=== PATIENT | female | born 1945 | race Caucasian/White ===

== ENCOUNTER 2017-02-10 18:22 | Inpatient (IN) | payer MEDICARE, MEDICAID ==
[~2017-02-10] VITALS: Ht 154.9 cm; Wt 78.9 kg
--- NOTE | 2017-02-10 18:48 | NUR ---
pending MD evaluation at this time-comfort & safety measures maintained.
--- NOTE | 2017-02-10 19:07 | NUR ---
Dr. Duff at bedside for eval.
[2017-02-10] MEDS ORDERED: IV NORMAL SALINE 1000 ML BAG IV ONE ×2 (19:15→22:30)
[2017-02-10 19:27] LABS: *BLOOD, URINE 1+ (NEGATIVE); *CLARITY,URINE SLIGHTLY CLOUDY (CLEAR); *COLOR,URINE YELLOW (YELLOW); *KETONES,URINE NEGATIVE (NEGATIVE); *PROTEIN,URINE 2+ (NEGATIVE); *UROBILINOGEN,URINE 0.2 E.U./dl (NORMAL); LEUKOCYTE ESTERASE ,URINE 3+ (NEGATIVE); NITRITE, URINE NEGATIVE (NEGATIVE); UGLUCOSE NEGATIVE (NEGATIVE)
[2017-02-10] MEDS ORDERED: CEFTRIAXONE 1 G VIAL ONE (19:34)
[2017-02-10 19:36] LABS: *BILIRUBIN,URIN NEGATIVE (NEGATIVE)
[2017-02-10 19:38] LABS: BACTERIA,URINE FEW /HPF (NONE SEEN); SQUAMOUS EPITHELIAL CELL,UR MODERATE /HPF (NONE SEEN); WBC,URINE 80-100 /HPF (0-3)
[2017-02-10 19:42] LABS: BASOPHILS # (AUTO) 0.2 K/uL (0.0-8.0); BASOPHILS % (AUTO) 1.1 % (0.0-2.0); EOSINOPHILS # (AUTO) 0.1 K/uL (0.0-0.7); EOSINOPHILS % (AUTO) 0.5 % (0.0-7.0); HEMATOCRIT 40.9 % (37-47); HEMOGLOBIN 13.2 G/DL (12.0-16.0); LYMPHOCYTES # (AUTO) 1.5 K/UL (0.8-4.8); LYMPHOCYTES % (AUTO) 9.1 % (20.5-51.5); MEAN CORPUSCULAR HEMOGLOBIN 28.5 UUG (27.0-31.0); MEAN CORPUSCULAR HGB CONC 32 g/dL (32.0-37.0); MEAN CORPUSCULAR VOLUME 88.1 FL (81.0-99.0); MONOCYTES # (AUTO) 1.2 K/UL (0.1-1.30); MONOCYTES % (AUTO) 6.9 % (0.0-11.0); NEUTROPHILS # (AUTO) 13.7 K/UL (1.8-8.9); NEUTROPHILS % (AUTO) 82.4 % (38.5-71.5); PLATELET COUNT (AUTO) 393 K/UL (150-450); RED BLOOD CELL COUNT(AUTO) 4.64 MIL/UL (4.2-5.4); WHITE BLOOD COUNT (AUTO) 16.7 K/UL (4.0-11.2)
[2017-02-10] MEDS: CEFTRIAXONE 1 G in IV DEXTROSE 5% 50 ML IV ONE ×2 (19:50→20:22)
--- NOTE | 2017-02-10 19:50 | NUR ---
IVPB hung at this time.
--- NOTE | 2017-02-10 19:51 | NUR ---
Ceftriaxone 1 gram IVPB given.
[2017-02-10 19:56] LABS: BILIRUBIN,DIRECT 0.1 mg/dL (0.0-0.2); BILIRUBIN,TOTAL 0.4 mg/dL (0.2-1.0); TOTAL PROTEIN, SERUM 7.5 g/dL (6.4-8.2)
[2017-02-10] MEDS ORDERED: POTASSIUM BICARBONATE/CIT AC 25 MEQ TABLET.EFF PO ONE (20:00)
[2017-02-10 20:05] LABS: BAND % (MANUAL) 7 % (0-10); EOSINOPHILS % (MANUAL) 2 % (0-8); LYMPHOCYTES % (MANUAL) 10 % (20-40); MONOCYTES % (MANUAL) 9 % (2-10); NEUTROPHILS % (MANUAL) 72 % (42-75)
[2017-02-10] MEDS ORDERED: POTASSIUM BICARBONATE/CIT AC 25 MEQ TABLET.EFF ONE (20:18)
--- NOTE | 2017-02-10 20:20 | NUR ---
IVPB completed at this time.
[2017-02-10] MEDS ORDERED: LEVOFLOXACIN 750 MG/D5W 150 ML PIGGYBACK IV ONE (21:45)
--- NOTE | 2017-02-10 21:49 | NUR ---
[facility] called, waiting economics consultant back.
[2017-02-10] MEDS ORDERED: LEVOFLOXACIN 750MG/D5W 150 ML IV ONE (22:10)
--- NOTE | 2017-02-10 22:23 | NUR ---
BP 91/51 HR 74 RR18 O2 99% on 2L via NC T 98.3. lactic acid 1.0. Dr. Duff notified. Patient ordered for bolus NS. Not code sepsis at this time. Repeat lactic acid ordered.
[2017-02-10] MEDS ORDERED: ROPI0.5T PO (22:27)
[2017-02-10] MEDS ORDERED: HYDR-3980 PO (22:27)
[2017-02-10] MEDS ORDERED: BLOO-140 IN (22:27)
[2017-02-10] MEDS ORDERED: METF500T4 PO (22:27)
[2017-02-10] MEDS ORDERED: GATI2.5D LEFTEYE (22:27)
[2017-02-10] MEDS ORDERED: GUAI-960 PO (22:27)
[2017-02-10] MEDS ORDERED: RANI150T8 PO (22:27)
[2017-02-10] MEDS ORDERED: FERR240T9 PO (22:27)
[2017-02-10] MEDS ORDERED: TELM1TAB18 PO (22:27)
[2017-02-10] MEDS ORDERED: DICL75TA5 PO (22:27)
[2017-02-10] MEDS ORDERED: PRED-170 PO (22:27)
[2017-02-10] MEDS ORDERED: MYCO500T PO (22:27)
[2017-02-10] MEDS ORDERED: TORS20TA3 PO (22:27)
[2017-02-10] MEDS ORDERED: INSU300I SQ (22:27)
[2017-02-10] MEDS ORDERED: METO50TA3 PO (22:27)
[2017-02-10] MEDS ORDERED: BUDE10.2 IH (22:27)
[2017-02-10] MEDS ORDERED: FLUT16SP NS (22:27)
[2017-02-10] MEDS ORDERED: POTA8TAB8 PO (22:27)
[2017-02-10] MEDS ORDERED: BRIM5DRO2 LEFTEYE (22:27)
[2017-02-10] MEDS ORDERED: ESOM40CA PO (22:27)
[2017-02-10] MEDS ORDERED: ZOLP10TA6 PO (22:27)
[2017-02-10] MEDS ORDERED: CLON0.5T4 PO (22:27)
[2017-02-10] MEDS ORDERED: CHOL200026 PO (22:27)
[2017-02-10] MEDS ORDERED: LIPA1CAP15 PO (22:27)
[2017-02-10] MEDS ORDERED: BRIN8DRO LEFTEYE (22:27)
[2017-02-10] MEDS ORDERED: HYDR25TA4 PO (22:27)
[2017-02-10] MEDS ORDERED: LEVO25TA2 PO (22:27)
[2017-02-10] MEDS ORDERED: MAGNESIUM SULFATE/D5W 100 ML IV SCH (22:30)
--- NOTE | 2017-02-10 23:05 | NUR ---
repeat lactic acid 0.8, Dr. Duff notified.
[2017-02-10] MEDS ORDERED: CEFTRIAXONE 1 G in IV DEXTROSE 5% 50 ML IV SCH (23:30)
[2017-02-10] MEDS ORDERED: ALBUTEROL SULFATE 2.5 MG/3 ML NEBU NEB PRN (23:30)
[2017-02-10] MEDS ORDERED: ALBUTEROL SULFATE 2.5 MG/3 ML NEBU ONE (23:43)
[2017-02-10] MEDS ORDERED: IPRATROPIUM BROMIDE 0.5 MG/2.5 ML NEBU ONE (23:44)
[2017-02-10] MEDS ORDERED: MAGNESIUM SULFATE/D5W 100 ML ONE (23:48)
--- NOTE | 2017-02-10 23:49 | NUR ---
Report called to CHACORTA Garcia. Pt. admitted to tele , under care of Dr. Hearn Belongs List completed
--- NOTE | 2017-02-11 00:25 | NUR ---
PT WAS BOUGHT IN TO FLOOR VIA GURNEY. ADMITTED TO TELE UNDER DR. KIM. DX: SYSTEMIC INFECTION DUE TO UTI. INITIATED ADMISSION ASSESSMENTS. WILL CALL FOR ORDERS.
--- NOTE | 2017-02-11 00:31 | NUR ---
Transported patient via gurney, O2 and monitor to room 207.
[2017-02-11 00:41] VITALS: BP 118/47
--- NOTE | 2017-02-11 00:51 | NUR ---
CEFTRIAXONE NOT GIVEN SCHEDULED. TOO EARLY TO GIVE, WAS GIVEN IN ER AT 1950.
[2017-02-11] MEDS: POTASSIUM CHLORIDE 20 MEQ in IV NS 1000 ML 1,000 ML IV PRN ×2 (03:03→16:24)
[2017-02-11 04:00] VITALS: BP 110/56
--- NOTE | 2017-02-11 06:29 | NUR ---
PT IS A/O, AMBULATED TO BATHROOM. IN NO ACUTE SIGNS OF DISTRESS. SLEPT INTERMITTENTLY DURING SHIFT. IVF INFUSING. SAFETY MAINTAINED. CALL LIGHT WITHIN REACH.
[2017-02-11 06:51] LABS: BASOPHILS # (AUTO) 0.1 K/uL (0.0-8.0); BASOPHILS % (AUTO) 0.4 % (0.0-2.0); EOSINOPHILS # (AUTO) 0.1 K/uL (0.0-0.7); EOSINOPHILS % (AUTO) 0.4 % (0.0-7.0); HEMATOCRIT 38.3 % (37-47); HEMOGLOBIN 12.4 G/DL (12.0-16.0); LYMPHOCYTES # (AUTO) 1.7 K/UL (0.8-4.8); LYMPHOCYTES % (AUTO) 10.2 % (20.5-51.5); MEAN CORPUSCULAR HEMOGLOBIN 28.8 UUG (27.0-31.0); MEAN CORPUSCULAR HGB CONC 33 g/dL (32.0-37.0); MEAN CORPUSCULAR VOLUME 88.8 FL (81.0-99.0); MONOCYTES # (AUTO) 1.7 K/UL (0.1-1.30); MONOCYTES % (AUTO) 10.3 % (0.0-11.0); NEUTROPHILS # (AUTO) 13.1 K/UL (1.8-8.9); NEUTROPHILS % (AUTO) 78.7 % (38.5-71.5); PLATELET COUNT (AUTO) 370 K/UL (150-450); RED BLOOD CELL COUNT(AUTO) 4.32 MIL/UL (4.2-5.4); WHITE BLOOD COUNT (AUTO) 16.7 K/UL (4.0-11.2)
[2017-02-11] MEDS ORDERED: ZOLPIDEM 5 MG TABLET PO PRN (07:30)
[2017-02-11 07:32] LABS: THYROID STIMULATING HORMONE 0.412 mIU/mL (0.358-3.740)
[2017-02-11] MEDS: LEVOTHYROXINE SODIUM 25 MCG TABLET PO SCH (07:36)
[2017-02-11] MEDS ORDERED: ALBUTEROL SULFATE 2.5 MG/ 0.5 ML NEBU NEB PRN (07:45)
--- NOTE | 2017-02-11 08:00 | NUR ---
CONTINUE TELE MONITORING SR ON MONITOR. CONTINUE O2 3L SATURATING 93 %. NO SOB
[2017-02-11 08:59] LABS: BILIRUBIN,TOTAL 0.3 mg/dL (0.2-1.0); CREATININE 1.1 mg/dL (0.6-1.3); MAGNESIUM 1.8 mg/dL (1.8-2.4); PHOSPHOROUS 2.7 mg/dL (2.5-4.9); POTASSIUM 3.6 mmol/L (3.5-5.1); TOTAL PROTEIN, SERUM 6.8 g/dL (6.4-8.2)
[2017-02-11] MEDS ORDERED: DEXTROSE 50% 50 ML DISP.SYRIN IV PRN (09:00)
[2017-02-11] MEDS ORDERED: Medication Not On Formulary EA (Lipase/Protease/Amylase (Creon Dr 36,000 Units Capsule) PO SCH (09:00)
[2017-02-11] MEDS ORDERED: FERROUS GLUCONATE 240 MG PO SCH (09:00)
[2017-02-11] MEDS ORDERED: Medication Not On Formulary EA (Cholecalciferol (Vitamin D3) (Vitamin D3 TAB) 2,000 UNIT PO SCH (09:00)
[2017-02-11] MEDS ORDERED: Medication Not On Formulary EA (Potassium Chloride 8 MEQ) PO SCH (09:00)
[2017-02-11] MEDS ORDERED: Medication Not On Formulary EA (Mycophenolate Mofetil (Cellcept) 500 MG) PO SCH (09:00)
[2017-02-11] MEDS: POTASSIUM CHLORIDE 8 MEQ CAPSULE.SA PO SCH (09:01)
[2017-02-11] MEDS: METFORMIN HCL 500 MG TABLET PO SCH (09:01)
[2017-02-11] MEDS: CHOLECALCIFEROL 1,000 UNIT TABLET PO SCH (09:01)
[2017-02-11] MEDS: predniSONE 5 MG TABLET PO SCH (09:02)
[2017-02-11] MEDS: MYCOPHENOLATE MOFETIL 250 MG CAPSULE PO SCH ×2 (09:02→21:42)
[2017-02-11] MEDS: LIPASE/PROTEASE/AMYLASE 4200 UNITS CAPSULE.DR PO SCH ×3 (09:03→17:02)
[2017-02-11] MEDS: DICLOFENAC 75 MG TABLET.DR PO SCH (09:06)
[2017-02-11 09:10] LABS: BAND % (MANUAL) 9 % (0-10); LYMPHOCYTES % (MANUAL) 15 % (20-40); MONOCYTES % (MANUAL) 12 % (2-10); NEUTROPHILS % (MANUAL) 64 % (42-75)
[2017-02-11] MEDS: HYDROCODONE/APAP 10-325 MG TABLET PO PRN ×2 (09:14→23:50)
--- NOTE | 2017-02-11 11:00 | NUR ---
ACCUCHECK STARTED WITH SS COVERAGE,. UP AND ABOUT WITH FAMILY AT BEDSIDE SUPPORTIVE WITH CARE
[2017-02-11] MEDS: BLOOD SUGAR DIAGNOSTIC 1 EACH STRIP VI SCH ×3 (11:39→21:00)
[2017-02-11] MEDS: INSULIN REGULAR, HUMAN 300 UNIT/3 ML VIAL SQ PRN ×2 (11:42→16:37)
[2017-02-11 11:59] VITALS: BP 106/54
--- NOTE | 2017-02-11 14:00 | NUR ---
SEEN BY DR ORO SPOKE WITH PATIENT AND ABOUT PLAN OF CARE SEE NOTES
[2017-02-11] MEDS: CLONAZEPAM 0.5 MG TABLET PO SCH (15:02)
[2017-02-11 16:54] VITALS: BP 109/60
--- NOTE | 2017-02-11 17:10 | NUR ---
CONTINUE MONITORING FOR UTI, NO REACTION FROM ROCEPHIN, LOW GRADE FEVER SR ON MONITOR
[2017-02-11 21:09] VITALS: BP 120/59
[2017-02-11] MEDS: CEFTRIAXONE 1 G in IV DEXTROSE 5% 50 ML IV SCH (21:42)
[2017-02-11] MEDS: ropiniROLE 0.5 MG TABLET PO SCH (21:42)
[2017-02-12 00:24] VITALS: BP 135/79
[2017-02-12 04:20] VITALS: BP 130/52
[2017-02-12] MEDS: POTASSIUM CHLORIDE 20 MEQ in IV NS 1000 ML 1,000 ML IV PRN ×2 (05:19→22:16)
[2017-02-12] MEDS: LEVOTHYROXINE SODIUM 25 MCG TABLET PO SCH (06:18)
[2017-02-12] MEDS: BLOOD SUGAR DIAGNOSTIC 1 EACH STRIP VI SCH ×4 (06:49→20:34)
[2017-02-12] MEDS: HYDROCODONE/APAP 10-325 MG TABLET PO PRN ×2 (07:55→20:45)
--- NOTE | 2017-02-12 08:00 | NUR ---
RESTING NO SIGNS OF DISTRESS, CONTINUE WITH O2 3L NC SATURATING 92%, CONTINUE WITH ROCEPHIN ORDERS NO REACTION OBSERVED
[2017-02-12] MEDS: CHOLECALCIFEROL 1,000 UNIT TABLET PO SCH (08:03)
[2017-02-12] MEDS: MYCOPHENOLATE MOFETIL 250 MG CAPSULE PO SCH ×2 (08:03→20:35)
[2017-02-12] MEDS: predniSONE 5 MG TABLET PO SCH (08:03)
[2017-02-12] MEDS: FERROUS SULFATE 325 MG TABEC PO SCH (08:03)
[2017-02-12] MEDS: METFORMIN HCL 500 MG TABLET PO SCH (08:03)
[2017-02-12] MEDS: CLONAZEPAM 0.5 MG TABLET PO SCH (08:04)
[2017-02-12] MEDS: POTASSIUM CHLORIDE 8 MEQ CAPSULE.SA PO SCH (08:04)
[2017-02-12] MEDS: DICLOFENAC 75 MG TABLET.DR PO SCH (08:04)
[2017-02-12] MEDS: LIPASE/PROTEASE/AMYLASE 4200 UNITS CAPSULE.DR PO SCH ×3 (08:05→16:51)
[2017-02-12 09:15] LABS: BASOPHILS % (AUTO) 0.3 % (0.0-2.0); EOSINOPHILS # (AUTO) 0.1 K/uL (0.0-0.7); EOSINOPHILS % (AUTO) 0.7 % (0.0-7.0); HEMATOCRIT 35.8 % (37-47); HEMOGLOBIN 11.5 G/DL (12.0-16.0); LYMPHOCYTES # (AUTO) 1.6 K/UL (0.8-4.8); LYMPHOCYTES % (AUTO) 11.7 % (20.5-51.5); MEAN CORPUSCULAR HEMOGLOBIN 28.6 UUG (27.0-31.0); MEAN CORPUSCULAR HGB CONC 32 g/dL (32.0-37.0); MONOCYTES # (AUTO) 1.5 K/UL (0.1-1.30); MONOCYTES % (AUTO) 10.6 % (0.0-11.0); NEUTROPHILS # (AUTO) 10.8 K/UL (1.8-8.9); NEUTROPHILS % (AUTO) 76.7 % (38.5-71.5); PLATELET COUNT (AUTO) 358 K/UL (150-450); RED BLOOD CELL COUNT(AUTO) 4.02 MIL/UL (4.2-5.4)
[2017-02-12 09:32] LABS: CREATININE 0.8 mg/dL (0.6-1.3); MAGNESIUM 1.8 mg/dL (1.8-2.4); PHOSPHOROUS 1.9 mg/dL (2.5-4.9); POTASSIUM 3.9 mmol/L (3.5-5.1)
[2017-02-12 11:45] VITALS: BP 105/58
[2017-02-12] MEDS: INSULIN REGULAR, HUMAN 300 UNIT/3 ML VIAL SQ PRN ×2 (11:58→16:50)
--- NOTE | 2017-02-12 13:00 | NUR ---
NO ACUTE CHANGE, AFEBRLIE
[2017-02-12] MEDS: SOD FERRIC GLUC COMPLX/SUCROSE 125 MG in IV NORMAL SALINE 100 ML IV SCH (14:51)
[2017-02-12] MEDS ORDERED: BISACODYL 10 MG SUPP.RECT RC PRN (15:45)
[2017-02-12] MEDS ORDERED: MAGNESIUM HYDROXIDE 30 ML LIQUID UDC PO PRN (15:45)
[2017-02-12 15:53] VITALS: BP 131/76
[2017-02-12] MEDS ORDERED: NEUTRA PHOS PACKET PO ONE (16:00)
[2017-02-12] MEDS: NICOTINE 14 MG/24HR PATCH TD SCH (16:46)
--- NOTE | 2017-02-12 17:55 | NUR ---
SEEN BY DR HINOJOSA WITH ORDERS, MOM GIVEN FOR C/O CONSTIPATION
[2017-02-12 20:00] VITALS: BP 120/69
[2017-02-12 20:07] LABS: *OCCULT BLOOD STOOL NEGATIVE (NEGATIVE)
[2017-02-12] MEDS: CEFTRIAXONE 1 G in IV DEXTROSE 5% 50 ML IV SCH (20:30)
[2017-02-12] MEDS: ropiniROLE 0.5 MG TABLET PO SCH (20:31)
--- NOTE | 2017-02-12 20:45 | NUR ---
PATIENT AWAKE,ALERT,RIGHT EYE BLIND,SLIGHTLY ANXIOUS,C/O BACK PAIN AND MILD HEADACHE,NORCO 10-325 MG PO ADMIN,NSR ON TELE MONITOR,NO SOB ON O2 3L/M VIA N/C.
[2017-02-12] MEDS: IPRATROPIUM BROMIDE 0.5 MG/2.5 ML NEBU NEB PRN (22:10)
[2017-02-12] MEDS: ACIDOPHILUS/BULGARICUS CHEW TAB GT SCH (22:14)
[2017-02-12] MEDS: ALPRAZOLAM 0.5 MG TABLET PO PRN (22:15)
--- NOTE | 2017-02-12 22:15 | NUR ---
PATIENT C/O NOT FEELS WELL,RESTLESS,MILD SOB,BREATHING TREATMENT GIVEN BY R.T. XANAX 0.5 MG PO ADMIN FOR ANXIETY,BED ALARM ON PATIENT INSTRUCTED TO CALL FOR ASSISTANCE.
[2017-02-13] VITALS (44 sets, daily range): BP systolic 63–163; BP diastolic 38–113
[2017-02-13] MEDS: HYDROCODONE/APAP 10-325 MG TABLET PO PRN ×2 (02:09→12:04)
--- NOTE | 2017-02-13 04:00 | NUR ---
PATIENT REPORTED,SHE LOST HER BALANCE WHILE TRY TO PLUG IVF TO THE WALL,WHEN SHE BACK FROM BATH ROOM,RN TRY TO ENCOURAGE TO CALL FOR ASSISTANCE,SHE WANTS TO DO HER OWN ASSESS PATIENT FOR INJURY , VITAL SIGNS TAKEN AND RECORDED, NOTHING UNUSUAL NOTED,APPROPRIATE STAFF NOTIFIED,, RN PIT TANNER,CASHIER ASSOCIATE NOTIFIED,MONITOR PATIENT FOR ANY CONDITION CHANGED,STABLE AND TELE SR 80'S,PATIENT INSTRUCTED TO STAY IN BED,CALL LIGHT IN REACHED,BED IN LOW POSITION,SIDE RAILS UP X2, BEDSIDE TABLE WITH IN REACH.
--- NOTE | 2017-02-13 05:00 | NUR ---
PATIENT C/O UNABLE TO SLEEP,REQUESTED FOR XANAX AND GIVEN ORDERED,RESTING FAIRLY WELL.
[2017-02-13] MEDS: ALPRAZOLAM 0.5 MG TABLET PO PRN (05:02)
[2017-02-13] MEDS: LEVOTHYROXINE SODIUM 25 MCG TABLET PO SCH (06:21)
[2017-02-13] MEDS: ACIDOPHILUS/BULGARICUS CHEW TAB GT SCH ×2 (06:22→14:00)
--- NOTE | 2017-02-13 06:30 | NUR ---
NO CALL BACK FROM , PATIENT IN STABLE CONDITION,BLOOD SUGAR KWEV=[id number], PATIENT NOT IN DISTRESS,NO DIABETIC CRISIS NOTED,
[2017-02-13] MEDS: BLOOD SUGAR DIAGNOSTIC 1 EACH STRIP VI SCH ×3 (06:38→17:17)
--- NOTE | 2017-02-13 07:00 | NUR ---
ENDORSED TO AM NURSE,IN APPARENTLY FAIR CONDITION.
[2017-02-13 07:15] LABS: BASOPHILS # (AUTO) 0.1 K/uL (0.0-8.0); BASOPHILS % (AUTO) 0.5 % (0.0-2.0); EOSINOPHILS # (AUTO) 0.1 K/uL (0.0-0.7); EOSINOPHILS % (AUTO) 0.7 % (0.0-7.0); HEMATOCRIT 32.8 % (37-47); HEMOGLOBIN 10.8 G/DL (12.0-16.0); LYMPHOCYTES # (AUTO) 2.2 K/UL (0.8-4.8); LYMPHOCYTES % (AUTO) 15.2 % (20.5-51.5); MEAN CORPUSCULAR HEMOGLOBIN 29.2 UUG (27.0-31.0); MEAN CORPUSCULAR HGB CONC 33 g/dL (32.0-37.0); MEAN CORPUSCULAR VOLUME 88.8 FL (81.0-99.0); MONOCYTES # (AUTO) 1.7 K/UL (0.1-1.30); MONOCYTES % (AUTO) 11.7 % (0.0-11.0); NEUTROPHILS # (AUTO) 10.5 K/UL (1.8-8.9); NEUTROPHILS % (AUTO) 71.9 % (38.5-71.5); PLATELET COUNT (AUTO) 373 K/UL (150-450); WHITE BLOOD COUNT (AUTO) 14.6 K/UL (4.0-11.2)
--- NOTE | 2017-02-13 07:16 | NUR ---
PATIENT UP TO THE BATHROOM NOTED HR SR 80 TO AFIB 150-160, SLIGHT SOB ALICIA WITH 3L O2. DR HINOJOSA NOTIFIED WITH ORDERS
[2017-02-13 07:27] LABS: CREATININE 0.8 mg/dL (0.6-1.3); PHOSPHOROUS 2.4 mg/dL (2.5-4.9); POTASSIUM 3.9 mmol/L (3.5-5.1)
[2017-02-13] MEDS ORDERED: SUCCINYLCHOLINE CHLORIDE 200 MG/10 ML VIAL MC ONE (07:27)
[2017-02-13] MEDS: NICOTINE 14 MG/24HR PATCH TD SCH (08:09)
[2017-02-13] MEDS: predniSONE 5 MG TABLET PO SCH (08:09)
[2017-02-13] MEDS: DICLOFENAC 75 MG TABLET.DR PO SCH (08:09)
[2017-02-13] MEDS: MYCOPHENOLATE MOFETIL 250 MG CAPSULE PO SCH ×2 (08:09→21:22)
[2017-02-13] MEDS: CLONAZEPAM 0.5 MG TABLET PO SCH (08:10)
[2017-02-13] MEDS: FERROUS SULFATE 325 MG TABEC PO SCH (08:10)
[2017-02-13] MEDS: CHOLECALCIFEROL 1,000 UNIT TABLET PO SCH (08:10)
[2017-02-13] MEDS: POTASSIUM CHLORIDE 8 MEQ CAPSULE.SA PO SCH (08:10)
[2017-02-13] MEDS: METFORMIN HCL 500 MG TABLET PO SCH (08:10)
[2017-02-13] MEDS: LIPASE/PROTEASE/AMYLASE 4200 UNITS CAPSULE.DR PO SCH ×3 (08:12→17:57)
--- NOTE | 2017-02-13 08:20 | NUR ---
HR SUSTAINING 150 -160 EKG COMPLETED CONSISTENT WITH AFIB ALERT AND ORIENTED X3 ABG, STAT MG AND HIP XRAY DONE AWAITING RESULTS
[2017-02-13 08:27] LABS: ABG BASE EXCESS 2.1 mmol/L; ABG HCO3 26.7 mmol/L; ABG PCO2 41.5 mmHg (35.0-45.0); ABG PH 7.426 (7.350-7.450); ABG PO2 50.3 mmHg (75.0-100.0); ABG SITE RIGHT RADIAL; ABG TOTAL HEMOGLOBIN 12.3 G/dL (12.0-16.0); COHb 1.1 % (0.5-1.5); MetHb 0.2 % (0.0-1.5); O2Hb 85.1 % (94.0-97.0); VENT MODE ROOM AIR
[2017-02-13] MEDS ORDERED: DILTIAZEM HCL 25 MG IV IV ONE (09:15)
[2017-02-13] MEDS: IPRATROPIUM BROMIDE 0.5 MG/2.5 ML NEBU NEB PRN (09:22)
--- NOTE | 2017-02-13 09:34 | NUR ---
BOLUS OF CARDIZEM 20 MG IV GIVEN HR 156/MIN DENIES CHEST PAIN.
[2017-02-13 09:46] LABS: BAND % (MANUAL) 7 % (0-10); LYMPHOCYTES % (MANUAL) 12 % (20-40); MONOCYTES % (MANUAL) 8 % (2-10); NEUTROPHILS % (MANUAL) 73 % (42-75)
--- NOTE | 2017-02-13 10:00 | NUR ---
ON AND OF SHAKING TEMP CHECKED 98.5 DR HINOJOSA AT BEDSIDE HR NOW ON THE 140/MIN. OBSERVED
[2017-02-13] MEDS ORDERED: DILTIAZEM HCL IV 125 MG in IV DEXTROSE 5% 100 ML IV PRN (10:15)
[2017-02-13] MEDS ORDERED: MAGNESIUM SULFATE 2 GM in IV DEXTROSE 5% 100 ML IV ONE (10:30)
--- NOTE | 2017-02-13 10:30 | NUR ---
TRANSFER TO ICU FOR HIGHER LEVEL OF CARE, REPORT GIVEN TO SALESMAN/OWNER, FAMILY MADE AWARE
--- NOTE | 2017-02-13 10:45 | NUR ---
Got pt.Tx from [facility] to CCU#2.pt restless,agitation noted Tachy HR 160'S rr 24 on monitor uncontr.A-fib.Rectal temp 103.2 notified,pt started on sepsis protocol.see odrers.Family at bedside,updated with pt.condition and plan of care.
[2017-02-13] MEDS ORDERED: IV NS 1000 ML 1,000 ML IV ONE ×2 (11:00→11:15)
[2017-02-13] MEDS: MAGNESIUM SULFATE/D5W 100 ML IV SCH ×2 (11:04→12:00)
[2017-02-13] MEDS ORDERED: AMIODARONE HCL IV 900 MG in IV DEXTROSE 5% 482 ML IV PRN (11:15)
[2017-02-13] MEDS ORDERED: AMIODARONE HCL IV 150 MG in IV DEXTROSE 5% 100 ML IV ONE (11:15)
[2017-02-13] MEDS ORDERED: IV NORMAL SALINE 500 ML IV ONE (11:15)
[2017-02-13] MEDS ORDERED: ACETAMINOPHEN 325 MG TABLET PO PRN (11:15)
--- NOTE | 2017-02-13 11:15 | NUR ---
Pt.was seen by and with new orders.
--- NOTE | 2017-02-13 11:50 | NUR ---
Amiodarone bolus,followed by Gtt started with no good resolt.pt.noted to have SOB was notified 2nd bolus of NS/1l was stop.
[2017-02-13 11:51] LABS: BILIRUBIN,DIRECT 0.1 mg/dL (0.0-0.2); BILIRUBIN,TOTAL 0.3 mg/dL (0.2-1.0); CREATININE 0.8 mg/dL (0.6-1.3); TOTAL PROTEIN, SERUM 7.8 g/dL (6.4-8.2)
[2017-02-13] MEDS: LORAZEPAM 2 MG/1 ML VIAL IV PRN ×2 (12:16→22:23)
[2017-02-13] MEDS ORDERED: FUROSEMIDE 20 MG/2 ML VIAL IV ONE ×2 (13:00→14:00)
[2017-02-13] MEDS ORDERED: MORPHINE SULFATE 2 MG/1 ML DISP.SYRIN IM PRN ×2 (13:00→13:15)
--- NOTE | 2017-02-13 13:00 | NUR ---
Pt.noted to get in resp.distress,tachypnic SOB, notified,Lasix 20 IV given.
[2017-02-13] MEDS ORDERED: MORPHINE SULFATE 4 MG/1 ML DISP.SYRIN IM PRN (13:30)
[2017-02-13] MEDS: PIPERACILLIN/TAZOBACTAM/D5W 3.375 G in PREMIXED 1 EACH IV SCH ×2 (13:46→21:57)
[2017-02-13] MEDS: SOD FERRIC GLUC COMPLX/SUCROSE 125 MG in IV NORMAL SALINE 100 ML IV SCH (14:00)
--- NOTE | 2017-02-13 14:00 | NUR ---
pt.still in SOB with RR 24-26,with good respond to lasix notified 2nd dose of Lasix 20mg given for congest.post IVF bolus.
--- NOTE | 2017-02-13 15:20 | NUR ---
post lunch assesment pt.lethargic,none responcive YOUTH CAREER SPECIALIST was paged,Dr Perez and at bedside,ABG stat done with crit.khurramts,pt.placed on BIPAP/Family was updated with pt.condition and plan of care.
[2017-02-13] MEDS ORDERED: METOPROLOL TARTRATE 5 MG/5 ML VIAL IVP STA (15:28)
[2017-02-13] MEDS ORDERED: SODIUM PHOSPHATE MM 15 MM in IV DEXTROSE 5% 250 ML IV ONE (15:30)
[2017-02-13 15:45] LABS: ABG BASE EXCESS 1.4 mmol/L; ABG HCO3 35.6 mmol/L; ABG PCO2 129.2 mmHg (35.0-45.0); ABG PH 7.058 (7.350-7.450); ABG PO2 68.4 mmHg (75.0-100.0); ABG SITE RIGHT RADIAL; ABG TOTAL HEMOGLOBIN 13.1 G/dL (12.0-16.0); COHb 0.8 % (0.5-1.5); MetHb 0.5 % (0.0-1.5); O2Hb 84.1 % (94.0-97.0); VENT MODE BIPAP
[2017-02-13] MEDS ORDERED: SODIUM BICARBONATE 8.4% 50 MEQ/50 ML DISP.SYRIN IV ONE (15:45)
[2017-02-13] MEDS: LEVOFLOXACIN 500 MG/D5W 500 MG in PREMIXED 1 EACH IV SCH (15:45)
--- NOTE | 2017-02-13 15:52 | NUR ---
PT PLACED ON BIPAP POST ABG PER MD ORDERS. SETTINGS IPAP 18, EPAP 5, R 20, 100% FIO2. ALARMS ARE ON AND AUDIBLE, BVM AT BEDSIDE. WILL CONTINUE TO MONITOR.
[2017-02-13] MEDS ORDERED: LEVOFLOXACIN 500 MG/D5W 100 ML ONE (15:55)
[2017-02-13 16:39] LABS: ABG BASE EXCESS 0.8 mmol/L; ABG HCO3 35.7 mmol/L; ABG PCO2 139.4 mmHg (35.0-45.0); ABG PH 7.026 (7.350-7.450); ABG PO2 97.5 mmHg (75.0-100.0); ABG SITE RIGHT RADIAL; ABG TOTAL HEMOGLOBIN 13.1 G/dL (12.0-16.0); COHb 0.9 % (0.5-1.5); MetHb 0.4 % (0.0-1.5); O2Hb 92.4 % (94.0-97.0); VENT MODE BIPAP
--- NOTE | 2017-02-13 16:40 | NUR ---
2nd ABG still with crit.resolts was paged.[phone] call back,ordered to intubate pt.[id number].Pt.was intubated by ELISSA,family updated with pt.condition.
--- NOTE | 2017-02-13 17:30 | NUR ---
PT WAS INTUBATED AND PLACED ON GRIFFIN VENTILATOR, SETTINGS ARE AC 16, Vt 550, +5, 100% FIO2. 7.5 ETT IS PATENT AND SECURED WITH ANCHOR FAST AT 23CM AT THE LIP. ALARMS ARE ON AND AUDIBLE, BVM AND BACK UP TRACH AT BEDSIDE. SPUTUM SAMPLE COLLECTED. WILL CONTINUE TO MONITOR.
[2017-02-13] MEDS: INSULIN REGULAR, HUMAN 300 UNIT/3 ML VIAL SQ PRN (17:33)
[2017-02-13] MEDS ORDERED: ETOMIDATE 20 MG/10 ML VIAL IV ONE (17:45)
--- NOTE | 2017-02-13 18:05 | NUR ---
Pt.HR 40'S amiodarone gtt was stop.SBP 80,70s.Neosyn.Gtt was started. was paged,[phone] call back notified about HR and BP,ordered Levophed Gtt in addition in case BP will go lower.
[2017-02-13] MEDS ORDERED: PHENYLEPHRINE IV 20 MG in IV DEXTROSE 5% 250 ML IV PRN (18:15)
[2017-02-13] MEDS: POTASSIUM CHLORIDE 20 MEQ in IV NS 1000 ML 1,000 ML IV PRN (18:32)
[2017-02-13] MEDS ORDERED: NOREPINEPHRINE BITARTRATE 16 MG in IV DEXTROSE 5% 500 ML IV PRN (18:45)
--- NOTE | 2017-02-13 18:50 | NUR ---
Pt.was seen by INTERPRETIVE PROGRAM COORDINATORCamille.
--- NOTE | 2017-02-13 19:30 | NUR ---
Report received. Patient orally intubated and to mechanical ventilator with settings: AC=16, DZG0=805%, VF=738 ml and PEEP= 5 cm. Sat 100%. Doesn't open eyes to name. On continuous Neosynephrine drip for BP support; see IV flow sheet for doses/rates. PICC line insertion pending as per report. Monitor: Junctional rhythm rate 37-40 bpm. Assessment completed. Addendum: 02/13/17 at 2311 by PANCHITO GARZA RN Amended: Links added.
--- NOTE | 2017-02-13 19:45 | NUR ---
Temp= 95 rectally. Patient mildly restless with rectal temp check. Still doesn't open eyes. R eye close; not able to check pupil. Warm blankets provided. ABGs drawn by RT.
[2017-02-13] MEDS: IPRATROPIUM BROMIDE 0.5 MG/2.5 ML NEBU NEB SCH ×2 (19:48→23:19)
[2017-02-13] MEDS: ALBUTEROL SULFATE 1.25 MG/3 ML NEBU NEB SCH ×2 (19:48→23:19)
--- NOTE | 2017-02-13 19:49 | NUR ---
Pt received on Floyd vent with settings of AC 16, VT 550, Peep +5, FiO2 100%. Pt is orally intubated with a 7.5 ETT, secured with anchor fast at 23cm at the lip. Pt appears to be tolerating vent settings well, no signs of respiratory distress noted at this time. Suctioned pt with minimal amount of pale-yellowish secretions. Inline tx given per md orders, no adverse reactions noted. Ambu-bag at bedside. Vent alarms functioning and audible. Will continue to monitor pt throughout shift.
--- NOTE | 2017-02-13 20:00 | NUR ---
ORALIA for NGT placement done at bedside. Venancio for PICC line insertion here. Family visited. Spoke to patient' son Nirav. Plan of care and routine CCU protocol discussed with him. He will be the spoke person for the entire family. Neosynephrine drip titrated down; BPs monitored closely. Addendum: 02/13/17 at 2336 by PANCHITO GARZA RN Amended: Links added.
[2017-02-13] MEDS ORDERED: INSULIN REGULAR, HUMAN 300 UNIT/3 ML VIAL SQ PRN (20:04)
[2017-02-13 20:06] LABS: ABG BASE EXCESS 3.7 mmol/L; ABG HCO3 28.9 mmol/L; ABG PCO2 46.6 mmHg (35.0-45.0); ABG PH 7.411 (7.350-7.450); ABG PO2 238.3 mmHg (75.0-100.0); ABG SITE LEFT RADIAL; ABG TOTAL HEMOGLOBIN 11.5 G/dL (12.0-16.0); COHb 0.5 % (0.5-1.5); MetHb 0.1 % (0.0-1.5); O2Hb 99.2 % (94.0-97.0); VENT MODE VENT - A/C; VT, ABG 550 mL
[2017-02-13] MEDS ORDERED: HYDROCODONE/APAP 10-325 MG TABLET NG PRN (20:15)
[2017-02-13] MEDS ORDERED: ZOLPIDEM 5 MG TABLET NG PRN (20:15)
[2017-02-13] MEDS ORDERED: MAGNESIUM HYDROXIDE 30 ML LIQUID UDC NG PRN (20:15)
[2017-02-13] MEDS ORDERED: ALPRAZOLAM 0.5 MG TABLET NG PRN (20:15)
--- NOTE | 2017-02-13 20:15 | NUR ---
ABG done, and results reported to CHACORTA Villarreal. Per ABG results, titrated FiO2 to 70% as per order to keep saturations above 94%. SpO2 at this time is 100%. CHACORTA Villarreal aware of change.
--- NOTE | 2017-02-13 20:25 | NUR ---
GERBER results called to Dr. Hurd; order received. Addendum: 02/13/17 at 2339 by PANCHITO GARZA RN Amended: Links added. Addendum: 02/13/17 at 2354 by PANCHITO GARZA RN Amended: Links added. Addendum: 02/13/17 at 2355 by PANCHITO GARZA RN Amended: Links added.
--- NOTE | 2017-02-13 20:28 | NUR ---
PICC line successfully inserted to CHANEL by Main IVF, Neosynephrine drip and Na Phosphate infusion attached to PICC line ports. Addendum: 02/13/17 at 2354 by PANCHITO GARZA RN Amended: Links added. Addendum: 02/13/17 at 2355 by PANCHITO GARZA RN Amended: Links added.
[2017-02-13] MEDS ORDERED: PROPOFOL 100 ML IV PRN (20:30)
[2017-02-13] MEDS: PHENYLEPHRINE IV 40 MG in IV DEXTROSE 5% 250 ML IV PRN ×2 (20:49→20:51)
[2017-02-13 20:51] LABS: EOSINOPHILS % (AUTO) 0.1 % (0.0-7.0); WHITE BLOOD COUNT (AUTO) 17.2 K/UL (4.0-11.2)
--- NOTE | 2017-02-13 20:51 | NUR ---
Neosynephrine double concentration bag hang. Continue to monitor BPs closely. Addendum: 02/14/17 at 0031 by PANCHITO GARZA RN Amended: Links added. Addendum: 02/14/17 at 0034 by PANCHITO GARZA RN Amended: Links added.
[2017-02-13 20:54] LABS: BASOPHILS # (AUTO) 0.1 K/uL (0.0-8.0); BASOPHILS % (AUTO) 0.8 % (0.0-2.0); HEMATOCRIT 34.3 % (37-47); HEMOGLOBIN 11.2 G/DL (12.0-16.0); LYMPHOCYTES # (AUTO) 1.7 K/UL (0.8-4.8); LYMPHOCYTES % (AUTO) 9.9 % (20.5-51.5); MEAN CORPUSCULAR HEMOGLOBIN 29.1 UUG (27.0-31.0); MEAN CORPUSCULAR HGB CONC 33 g/dL (32.0-37.0); MEAN CORPUSCULAR VOLUME 89.4 FL (81.0-99.0); MONOCYTES # (AUTO) 1.7 K/UL (0.1-1.30); MONOCYTES % (AUTO) 10.1 % (0.0-11.0); NEUTROPHILS # (AUTO) 13.7 K/UL (1.8-8.9); NEUTROPHILS % (AUTO) 79.1 % (38.5-71.5); PLATELET COUNT (AUTO) 409 K/UL (150-450); RED BLOOD CELL COUNT(AUTO) 3.84 MIL/UL (4.2-5.4)
[2017-02-13 21:02] LABS: CREATININE 1.1 mg/dL (0.6-1.3); POTASSIUM 4.1 mmol/L (3.5-5.1)
--- NOTE | 2017-02-13 21:05 | NUR ---
Per MD order, titrated FiO2 to 60%. No signs of respiratory distress noted. Saturation is 100%. RN Cherelle aware of change. Will continue to monitor pt throughout shift.
--- NOTE | 2017-02-13 21:15 | NUR ---
NGT placement confirmed by KUB results. Medications given.
[2017-02-13 21:20] LABS: NEUTROPHILS % (MANUAL) 65 % (42-75)
[2017-02-13 21:21] LABS: BAND % (MANUAL) 14 % (0-10); LYMPHOCYTES % (MANUAL) 11 % (20-40); MONOCYTES % (MANUAL) 10 % (2-10)
[2017-02-13] MEDS: ropiniROLE 0.5 MG TABLET NG SCH (21:22)
[2017-02-13 21:23] LABS: BILIRUBIN,TOTAL 0.4 mg/dL (0.1-1.0); TOTAL PROTEIN, SERUM 6.5 g/dL (6.4-8.2)
--- NOTE | 2017-02-13 21:45 | NUR ---
Results of labs called to Dr. Perez; updated of patient's condition. Order received. Addendum: 02/13/17 at 2303 by PANCHITO GARZA RN Amended: Links added. Addendum: 02/13/17 at 2311 by PANCHITO GARZA RN Amended: Links added.
[2017-02-13] MEDS: ACIDOPHILUS/BULGARICUS CHEW TAB NG SCH (21:57)
[2017-02-13] MEDS: methylPREDNISolone SOD SUCC 40 MG/ML VIAL IV SCH (21:57)
[2017-02-13] MEDS ORDERED: DEXTROSE 50% 50 ML DISP.SYRIN IV PRN (22:00)
--- NOTE | 2017-02-13 22:00 | NUR ---
Temp=97.9 orally. Patient coughing, mildly restless. Tried to reach for the ETT. Opens L eye to name and able to follow simple commands such as moving legs and squeezing RN's hand. Reoriented and advised appropriately. Medicated with Ativan IV. Addendum: 02/14/17 at 0034 by PANCHITO GARZA RN Amended: Links added.
--- NOTE | 2017-02-13 23:30 | NUR ---
Patient gets agitated when suctioned. Nods head to answer questions and follows commands fairly well. Denies pain. Reoriented PRN. Monitored closely.
[2017-02-14] VITALS (39 sets, daily range): BP systolic 104–142; BP diastolic 63–84
[2017-02-14] MEDS ORDERED: BLOOD SUGAR DIAGNOSTIC 1 EACH STRIP VI SCH ×2
[2017-02-14] MEDS: INSULIN REGULAR, HUMAN 300 UNIT/3 ML VIAL SQ PRN ×5 (00:02→23:40)
[2017-02-14] MEDS: BLOOD SUGAR DIAGNOSTIC 1 EACH STRIP VI SCH ×5 (00:02→23:39)
[2017-02-14] MEDS ORDERED: DEXTROSE 50% 50 ML DISP.SYRIN IV PRN (00:30)
--- NOTE | 2017-02-14 02:00 | NUR ---
Neosynephrine drip dc'd. BPs above 90 systole.
[2017-02-14] MEDS: ALBUTEROL SULFATE 1.25 MG/3 ML NEBU NEB SCH ×6 (03:10→23:27)
[2017-02-14] MEDS: IPRATROPIUM BROMIDE 0.5 MG/2.5 ML NEBU NEB SCH ×6 (03:10→23:27)
--- NOTE | 2017-02-14 04:00 | NUR ---
Am care given. Patient mildly restless but calms down and cooperative when talked to during care. BP stable. Addendum: 02/14/17 at 0647 by PANCHITO GARZA RN Amended: Links added.
[2017-02-14 05:20] LABS: MAGNESIUM 2.1 mg/dL (1.8-2.4); PHOSPHOROUS 3.6 mg/dL (2.5-4.9); POTASSIUM 4.3 mmol/L (3.5-5.1)
[2017-02-14 05:21] LABS: BASOPHILS % (AUTO) 0.1 % (0.0-2.0); EOSINOPHILS # (AUTO) 0.1 K/uL (0.0-0.7); EOSINOPHILS % (AUTO) 0.7 % (0.0-7.0); HEMATOCRIT 34.1 % (37-47); LYMPHOCYTES # (AUTO) 1.1 K/UL (0.8-4.8); LYMPHOCYTES % (AUTO) 9.7 % (20.5-51.5); MEAN CORPUSCULAR HEMOGLOBIN 28.7 UUG (27.0-31.0); MEAN CORPUSCULAR HGB CONC 32 g/dL (32.0-37.0); MEAN CORPUSCULAR VOLUME 89.1 FL (81.0-99.0); MONOCYTES # (AUTO) 0.4 K/UL (0.1-1.30); MONOCYTES % (AUTO) 3.8 % (0.0-11.0); NEUTROPHILS % (AUTO) 85.7 % (38.5-71.5); PLATELET COUNT (AUTO) 347 K/UL (150-450); RED BLOOD CELL COUNT(AUTO) 3.83 MIL/UL (4.2-5.4); WHITE BLOOD COUNT (AUTO) 11.6 K/UL (4.0-11.2)
[2017-02-14] MEDS: PIPERACILLIN/TAZOBACTAM/D5W 3.375 G in PREMIXED 1 EACH IV SCH ×3 (06:07→21:28)
[2017-02-14] MEDS: ACIDOPHILUS/BULGARICUS CHEW TAB NG SCH ×3 (06:07→21:28)
[2017-02-14] MEDS: LEVOTHYROXINE SODIUM 25 MCG TABLET NG SCH (06:07)
[2017-02-14] MEDS: methylPREDNISolone SOD SUCC 40 MG/ML VIAL IV SCH ×3 (06:07→21:28)
--- NOTE | 2017-02-14 07:30 | NUR ---
RECIEVED PT LYING IN BED SOUND ASLEEP BUT EASILY AROUSABLE. APPEARS TIRED AND DROWSY. COLOR IS GOOD. HR IS SINUS BRADYCARDIC IN THE 50'S. IV NS WITH 20KCL AT 80ML/HR INFUSING WELL VIA THE PICC LINE ON THE RIGHT UPPER ARM. VSS STABLE. PT IS ON A VENTILATOR VIA THE ETT SIZE 7.5, 23CM LIP LINE. VENT SETTING OF AC-16, VT-550, FIO2-60%, PEEP-5. NO APPARENT RESPIRATORY DISTRESS NOTED. AFEBRILE.
--- NOTE | 2017-02-14 08:05 | NUR ---
PT RECEIVED ON GRIFFIN VENTILATOR, CURRENT SETTINGS ARE AC 16, Vt 550, +5, 50% FIO2. 7.5 ETT IS PATENT AND SECURED WITH ANCHOR FAST AT 23CM AT THE LIP. DOING WELL ON CURRENT SETTINGS, NO S/S OF RESPIRATORY DISTRESS NOTED. INLINE TX TOLERATED WELL. ALARMS ARE ON AND AUDIBLE, BVM AND BACK UP TRACH AT BEDSIDE. WILL CONTINUE TO MONITOR.
[2017-02-14] MEDS: METFORMIN HCL 500 MG TABLET NG SCH (08:15)
[2017-02-14] MEDS: CLONAZEPAM 0.5 MG TABLET NG SCH (08:15)
[2017-02-14] MEDS: FERROUS SULFATE 325 MG TABEC PO SCH (08:16)
[2017-02-14] MEDS: ACETAMINOPHEN 325 MG TABLET NG PRN ×3 (08:16→23:05)
[2017-02-14] MEDS: NICOTINE 14 MG/24HR PATCH TD SCH (08:17)
[2017-02-14] MEDS: CHOLECALCIFEROL 1,000 UNIT TABLET NG SCH (08:18)
[2017-02-14] MEDS: MYCOPHENOLATE MOFETIL 250 MG CAPSULE PO SCH ×2 (08:19→20:18)
[2017-02-14] MEDS: POTASSIUM CHLORIDE 8 MEQ CAPSULE.SA PO SCH (08:20)
[2017-02-14] MEDS: LIPASE/PROTEASE/AMYLASE 4200 UNITS CAPSULE.DR PO SCH ×3 (08:29→17:35)
[2017-02-14] MEDS: POTASSIUM CHLORIDE 20 MEQ in IV NS 1000 ML 1,000 ML IV PRN (08:32)
[2017-02-14] MEDS: DICLOFENAC 75 MG TABLET.DR PO SCH (09:00)
--- NOTE | 2017-02-14 09:00 | NUR ---
NGT IN PLACE ON THE LEFT NARE. NPO EXCEPT MEDS. ABDOMEN IS BIG BUT SOFT TO TOUCH. NO BM NOTED AT THIS TIME.
[2017-02-14 09:12] LABS: ABG HCO3 26.6 mmol/L; ABG PCO2 33.2 mmHg (35.0-45.0); ABG PH 7.521 (7.350-7.450); ABG PO2 105.7 mmHg (75.0-100.0); ABG SITE RIGHT RADIAL; ABG TOTAL HEMOGLOBIN 12.2 G/dL (12.0-16.0); COHb 0.6 % (0.5-1.5); MetHb 0.2 % (0.0-1.5); O2Hb 97.6 % (94.0-97.0); VENT MODE VENT - A/C; VT, ABG 550 mL
--- NOTE | 2017-02-14 11:00 | NUR ---
SEEN AND EXAMINED BY DR CASTELLANOS WITH NEW ORDERS. ABG RESULT IS GOOD.
--- NOTE | 2017-02-14 11:30 | NUR ---
VENT CHANGE ORDERED, RATE DOWN TO 12. PT TOLERATED WELL. O2 SAT OF 99-100%. SUCTION VERY MINIMAL SECRETIONS. REPOSITION SIDE TO SIDE AT REGULAR UINTERVAL
--- NOTE | 2017-02-14 11:48 | NUR ---
VENT SETTINGS CHANGED PER MD ORDERS. AC 12, Vt 550, +5, 45% FIO2. PT TOLERATING VENT SETTINGS WELL. WILL CONTINUE TO MONITOR. RN NOTIFIED.
[2017-02-14] MEDS ORDERED: FUROSEMIDE 20 MG/2 ML VIAL IV ONE (13:00)
--- NOTE | 2017-02-14 13:00 | NUR ---
SEEN AND EXAMINED BY DR LOPES WITH NEW ORDER. IVF DISCONTINUED AND LASIX 20MG SLOW IVP GIVEN ORDEREED.
[2017-02-14] MEDS: LEVOFLOXACIN 500 MG/D5W 500 MG in PREMIXED 1 EACH IV SCH (14:49)
--- NOTE | 2017-02-14 15:30 | NUR ---
PT IS CALM AND SLEEPING GOOD. PT DIURESE WELL AFTER THE LASIX.
--- NOTE | 2017-02-14 17:00 | NUR ---
SEEN AND EXAMINED BY DR HINOJOSA. ORDERED TO HOLD OFF THE VOLTAREN TABLET. PM CARE RENDERED. VSS.
--- NOTE | 2017-02-14 17:50 | NUR ---
PT IS A LITTLE BIT RESTLESS. MEDICATED WITH ATIVAN 0.5MG SLOW IVP VIA THE PICC LINE. SITE LOOKS GOOD AND PATENT. DRESSING CHANGED. TYLENOL GR 10 VIA NGT GIVEN FOR C/O HEADACHE. LATEST TEMP-98.8.F
[2017-02-14] MEDS: LORAZEPAM 2 MG/1 ML VIAL IV PRN ×2 (17:53→23:27)
--- NOTE | 2017-02-14 18:30 | NUR ---
SEEN AND EXAMINED BY FREDERICK LUNA NP. AND SPOKE WITH THE FAMILY.
--- NOTE | 2017-02-14 19:30 | NUR ---
Report received. Patient AA, orally intubated and to mechanical ventilator with same settings. NAD noted. Assessment completed. Addendum: 02/15/17 at 0228 by PANCHITO GARZA RN Amended: Links added.
--- NOTE | 2017-02-14 20:00 | NUR ---
Family visited. Patient sleeping at intervals.
[2017-02-14] MEDS: ropiniROLE 0.5 MG TABLET NG SCH (20:18)
[2017-02-14] MEDS: MORPHINE SULFATE 4 MG/1 ML DISP.SYRIN IV PRN (20:20)
--- NOTE | 2017-02-14 20:20 | NUR ---
Medicated with Morphine for c/o headaches and generalized discomfort. Patient mildly restless. Bucking the vent at times. HOB elevated at all times.
--- NOTE | 2017-02-14 21:20 | NUR ---
Pt received awake, orally intubated with 7.5 ETT~23cm at lip line, on Floyd vent with the following settings of AC-12, Vt-550, PEEP+5, FIO2-45%. Pt responded to verbal communication. No s/s of respiratory distress noted. Airway care done, pt responded to physical stimuli. Resus. bag at bedside. Vent and alarms checked and reset.
--- NOTE | 2017-02-14 23:05 | NUR ---
Awake, refused to turn off the TV. Still c/o headache. Tylenol given. Still mildly agitated.
--- NOTE | 2017-02-14 23:27 | NUR ---
Coughing, bucking the vent. Suctioned for small amounts of ETT secretions. Ativan given IV for agitation.
[2017-02-15] VITALS (43 sets, daily range): BP systolic 100–158; BP diastolic 21–98
--- NOTE | 2017-02-15 | NUR ---
Patient with increasing agitation. Turning and tossing. Repositioned.
--- NOTE | 2017-02-15 00:30 | NUR ---
Extremely restless. Holding on to the ETT. Still doesn't want the TV off. Advised appropriately. Stayed with patient.
--- NOTE | 2017-02-15 00:40 | NUR ---
Continues to be restless. Bucking the vent. Sits up in bed abruptly. Diprivan drip started PRN sedation. See IV spread sheet for rates/dosages. Monitored closely.
--- NOTE | 2017-02-15 02:00 | NUR ---
Sleeping, with Diprivan drip at 20 mcg/kg/min. BP stable.
[2017-02-15] MEDS: IPRATROPIUM BROMIDE 0.5 MG/2.5 ML NEBU NEB SCH ×5 (03:08→19:27)
[2017-02-15] MEDS: ALBUTEROL SULFATE 1.25 MG/3 ML NEBU NEB SCH ×5 (03:08→19:27)
--- NOTE | 2017-02-15 04:00 | NUR ---
Sleeping. NAD. Monitor SB rate in the 50's. BP stable. Addendum: 02/15/17 at 0652 by PANCHITO GARZA RN Amended: Links added.
[2017-02-15 05:23] LABS: MAGNESIUM 2.1 mg/dL (1.8-2.4); PHOSPHOROUS 3.6 mg/dL (2.5-4.9); POTASSIUM 3.6 mmol/L (3.5-5.1)
[2017-02-15 05:25] LABS: BASOPHILS % (AUTO) 0.1 % (0.0-2.0); EOSINOPHILS % (AUTO) 0.1 % (0.0-7.0); HEMATOCRIT 32.2 % (37-47); HEMOGLOBIN 10.6 G/DL (12.0-16.0); LYMPHOCYTES # (AUTO) 1.2 K/UL (0.8-4.8); LYMPHOCYTES % (AUTO) 6.9 % (20.5-51.5); MEAN CORPUSCULAR HEMOGLOBIN 29.2 UUG (27.0-31.0); MEAN CORPUSCULAR HGB CONC 33 g/dL (32.0-37.0); MEAN CORPUSCULAR VOLUME 88.3 FL (81.0-99.0); MONOCYTES # (AUTO) 0.6 K/UL (0.1-1.30); MONOCYTES % (AUTO) 3.3 % (0.0-11.0); NEUTROPHILS # (AUTO) 15.1 K/UL (1.8-8.9); NEUTROPHILS % (AUTO) 89.6 % (38.5-71.5); PLATELET COUNT (AUTO) 352 K/UL (150-450); RED BLOOD CELL COUNT(AUTO) 3.64 MIL/UL (4.2-5.4); WHITE BLOOD COUNT (AUTO) 16.9 K/UL (4.0-11.2)
[2017-02-15] MEDS: ACIDOPHILUS/BULGARICUS CHEW TAB NG SCH ×3 (05:25→20:57)
[2017-02-15] MEDS: methylPREDNISolone SOD SUCC 40 MG/ML VIAL IV SCH ×3 (05:25→22:21)
[2017-02-15] MEDS: PIPERACILLIN/TAZOBACTAM/D5W 3.375 G in PREMIXED 1 EACH IV SCH ×3 (05:25→22:21)
[2017-02-15] MEDS: BLOOD SUGAR DIAGNOSTIC 1 EACH STRIP VI SCH ×4 (05:40→23:30)
[2017-02-15] MEDS: INSULIN REGULAR, HUMAN 300 UNIT/3 ML VIAL SQ PRN ×4 (05:43→23:32)
--- NOTE | 2017-02-15 05:51 | NUR ---
PT remain orally intubated on CMV, no distress noted, stable and tolerated current vent settings well, et tube checked, secured well, suctioned, good gag reflex noted, small amount of thick off white secretions, vent checked, alarms on and audible, on semi-garcia's position. inline tx given as ordered, tolerated well, no adverse reaction noted.
--- NOTE | 2017-02-15 06:00 | NUR ---
Still on minimal Diprivan drip. Patient arouses easily to name and light stimuli. VS stable. Addendum: 02/15/17 at 0648 by PANCHITO GARZA RN Amended: Links added. Addendum: 02/15/17 at 0652 by PANCHITO GARZA RN Amended: Links added.
[2017-02-15] MEDS: LEVOTHYROXINE SODIUM 25 MCG TABLET NG SCH (06:22)
--- NOTE | 2017-02-15 07:36 | NUR ---
RECEIVED PT ON CONTINUOUS MECHANICAL VENTILATION WITH SETTINGS OF AC 12, VT 550, PEEP +5, FIO2 45%. PT TOLERATING VENT SETTINGS WITH NO ISSUES AT THIS TIME. NO RESPIRATORY DISTRESS OBSERVED. PT IS ORALLY INTUBATED WITH ETT SIZE 7.5, APPROXIMATELY 23CM AT THE LIP. ORAL CARE DONE. ADMINISTERED ALBUTEROL/ATROVENT TX ORDERED BY MD. NO ADVERSE REACTIONS OBSERVED. TOLERATED WELL. HME CHANGED NEEDED. SUCTIONED SMALL AMOUNT OF THIN, PALE SECRETIONS. VENT CHANGES/WEANING TO BE DONE AT 0800. ABG ORDERED FOR 2 HOURS AFTER VENT CHANGES. AMBU BAG IS AT BEDSIDE. WILL CONTINUE TO MONITOR.
--- NOTE | 2017-02-15 08:00 | NUR ---
VENT CHANGES MADE AT THIS TIME. NEW SETTINGS ARE CPAP: PS 8, PEEP +5, 45% FIO2. NO S/S OF RESPIRATORY DISTRESS OBSERVED. VITALS ARE WITHIN NORMAL RANGES. SPO2 RANGING FROM 99-100%. ABG TO BE DONE AT 1000. BVM IS AT BEDSIDE. VENT IS PLUGGED INTO RED EMERGENCY OUTLET. WILL CONTINUE TO MONITOR.
[2017-02-15] MEDS: POTASSIUM CHLORIDE 8 MEQ CAPSULE.SA PO SCH (08:52)
[2017-02-15] MEDS: CHOLECALCIFEROL 1,000 UNIT TABLET NG SCH (08:53)
[2017-02-15] MEDS: MYCOPHENOLATE MOFETIL 250 MG CAPSULE PO SCH ×2 (08:53→20:57)
[2017-02-15] MEDS: METFORMIN HCL 500 MG TABLET NG SCH (08:53)
[2017-02-15] MEDS: LIPASE/PROTEASE/AMYLASE 4200 UNITS CAPSULE.DR PO SCH ×3 (08:53→17:38)
[2017-02-15] MEDS: FERROUS SULFATE 325 MG TABEC PO SCH (08:53)
[2017-02-15] MEDS: NICOTINE 14 MG/24HR PATCH TD SCH (08:54)
[2017-02-15] MEDS: CLONAZEPAM 0.5 MG TABLET NG SCH (08:54)
[2017-02-15 10:09] LABS: ABG BASE EXCESS 2.4 mmol/L; ABG HCO3 26.2 mmol/L; ABG PCO2 37.7 mmHg (35.0-45.0); ABG PO2 106.2 mmHg (75.0-100.0); ABG SITE LEFT RADIAL; ABG TOTAL HEMOGLOBIN 11.5 G/dL (12.0-16.0); COHb 0.2 % (0.5-1.5); CPAP,BG 8 cmH20; MetHb 0.3 % (0.0-1.5); O2Hb 97.6 % (94.0-97.0); VENT MODE CPAP
[2017-02-15] MEDS ORDERED: DC PROPOFOL ONCE EXTUBATED XX PRN (12:10)
--- NOTE | 2017-02-15 12:40 | NUR ---
PT EXTUBATED WITH NO ISSUES. SUCTIONED PRIOR TO EXTUBATION. ASSISTED BY OTHER RT ON STAFF. PT IS CURRENTLY ON 7Lpm VIA SIMPLE MASK. SPO2 RANGING FROM 98-99%. WILL CONTINUE TO MONITOR THROUGHOUT DAY.
[2017-02-15] MEDS ORDERED: DILTIAZEM HCL 30 MG TABLET PO SCH (13:15)
[2017-02-15] MEDS ORDERED: DILTIAZEM HCL 25 MG IV IV ONE (13:15)
[2017-02-15] MEDS ORDERED: FUROSEMIDE 20 MG/2 ML VIAL IV ONE (14:00)
[2017-02-15] MEDS: LEVOFLOXACIN 500 MG/D5W 500 MG in PREMIXED 1 EACH IV SCH (15:03)
[2017-02-15] MEDS: DILTIAZEM HCL IV 125 MG in IV DEXTROSE 5% 100 ML IV PRN (16:30)
--- NOTE | 2017-02-15 17:27 | NUR ---
Spoke with Dr. Perez on the telephone regarding pt's complaint of gas and abdominal pain. New orders received. Addendum: 02/15/17 at 1737 by OLIVER MURRELL RN MD also made aware of pt's NPO status and need for nutrition. New orders received.
--- NOTE | 2017-02-15 17:30 | NUR ---
Spoke with about pts consistent Rapid Afib not resolved by the 20mg IVP of cardizem and additional 30mg via NGT. Nwe orders received to start Cardizem drip and titrate to HR>110 and SBP >100.
[2017-02-15] MEDS: SIMETHICONE 80 MG TAB.CHEW PO PRN (18:18)
[2017-02-15] MEDS: ropiniROLE 0.5 MG TABLET NG SCH (20:56)
--- NOTE | 2017-02-15 21:33 | NUR ---
1899: Received report from CHACORTA Irizarry. Pt awake alert family in room. On monitor pt is A-fib with RVR HR in 130s to 140s. maintaining sbp above 118. No c/o chest pain. As per report MD is aware of pt's HR and cardiazem drip at 15 mg/hr rate. talked to DR. Perez Pt HR not controlled with present drip dose. Order received to titrate up to 20mg/hr. See IV flow sheet for drip titration. 1999: Tap water enema given as per order. Pt had large liquid stool. complete care/chamge and bed bath given. 2199: pt is so restless and confused difficult to teach. Needs lot of reinforcement. 2149 Pt. converted to NSR with HR in 70s. Titrating drip to keep HR greater than 60. continue to monitor.
[2017-02-16] VITALS (37 sets, daily range): BP systolic 90–158; BP diastolic 24–114
[2017-02-16] MEDS: IPRATROPIUM BROMIDE 0.5 MG/2.5 ML NEBU NEB SCH ×7 (00:10→22:56)
[2017-02-16] MEDS: ALBUTEROL SULFATE 1.25 MG/3 ML NEBU NEB SCH ×7 (00:11→22:56)
[2017-02-16] MEDS: MORPHINE SULFATE 4 MG/1 ML DISP.SYRIN IV PRN ×2 (00:37→12:19)
[2017-02-16] MEDS: DILTIAZEM HCL IV 125 MG in IV DEXTROSE 5% 100 ML IV PRN (01:34)
[2017-02-16 05:00] LABS: BASOPHILS # (AUTO) 0.1 K/uL (0.0-8.0); BASOPHILS % (AUTO) 0.5 % (0.0-2.0); HEMATOCRIT 32.8 % (37-47); HEMOGLOBIN 10.7 G/DL (12.0-16.0); LYMPHOCYTES # (AUTO) 0.8 K/UL (0.8-4.8); LYMPHOCYTES % (AUTO) 4.8 % (20.5-51.5); MEAN CORPUSCULAR HEMOGLOBIN 28.6 UUG (27.0-31.0); MEAN CORPUSCULAR HGB CONC 33 g/dL (32.0-37.0); MEAN CORPUSCULAR VOLUME 87.9 FL (81.0-99.0); MONOCYTES # (AUTO) 0.4 K/UL (0.1-1.30); MONOCYTES % (AUTO) 2.3 % (0.0-11.0); NEUTROPHILS # (AUTO) 15.4 K/UL (1.8-8.9); NEUTROPHILS % (AUTO) 92.4 % (38.5-71.5); PLATELET COUNT (AUTO) 462 K/UL (150-450); RED BLOOD CELL COUNT(AUTO) 3.74 MIL/UL (4.2-5.4); WHITE BLOOD COUNT (AUTO) 16.7 K/UL (4.0-11.2)
[2017-02-16 05:03] LABS: CREATININE 1.1 mg/dL (0.6-1.3); POTASSIUM 3.3 mmol/L (3.5-5.1)
[2017-02-16 05:06] LABS: PHOSPHOROUS 2.9 mg/dL (2.5-4.9)
[2017-02-16] MEDS: PIPERACILLIN/TAZOBACTAM/D5W 3.375 G in PREMIXED 1 EACH IV SCH ×3 (06:32→21:34)
[2017-02-16] MEDS: LEVOTHYROXINE SODIUM 25 MCG TABLET NG SCH (06:33)
[2017-02-16] MEDS: ACIDOPHILUS/BULGARICUS CHEW TAB NG SCH ×3 (06:33→21:14)
[2017-02-16] MEDS: methylPREDNISolone SOD SUCC 40 MG/ML VIAL IV SCH ×3 (06:33→21:14)
[2017-02-16] MEDS: BLOOD SUGAR DIAGNOSTIC 1 EACH STRIP VI SCH ×4 (06:34→21:14)
[2017-02-16] MEDS: INSULIN REGULAR, HUMAN 300 UNIT/3 ML VIAL SQ PRN ×3 (06:42→17:12)
[2017-02-16 08:10] LABS: ABG BASE EXCESS 4.6 mmol/L; ABG HCO3 26.5 mmol/L; ABG PCO2 30.4 mmHg (35.0-45.0); ABG PH 7.559 (7.350-7.450); ABG PO2 83.7 mmHg (75.0-100.0); ABG SITE LEFT RADIAL; ABG TOTAL HEMOGLOBIN 10.8 G/dL (12.0-16.0); COHb 1.4 % (0.5-1.5); MetHb 0.2 % (0.0-1.5); O2Hb 95.1 % (94.0-97.0); VENT MODE Nasal Cannula
[2017-02-16] MEDS: FERROUS SULFATE 325 MG TABEC PO SCH (08:24)
[2017-02-16] MEDS: CHOLECALCIFEROL 1,000 UNIT TABLET NG SCH (08:24)
[2017-02-16] MEDS: NICOTINE 14 MG/24HR PATCH TD SCH (08:24)
[2017-02-16] MEDS: CLONAZEPAM 0.5 MG TABLET NG SCH (08:24)
[2017-02-16] MEDS: MYCOPHENOLATE MOFETIL 250 MG CAPSULE PO SCH ×2 (08:24→20:44)
[2017-02-16] MEDS: METFORMIN HCL 500 MG TABLET NG SCH (08:24)
[2017-02-16] MEDS: LIPASE/PROTEASE/AMYLASE 4200 UNITS CAPSULE.DR PO SCH ×3 (08:25→17:10)
[2017-02-16] MEDS: POTASSIUM CHLORIDE 8 MEQ CAPSULE.SA PO SCH (08:39)
--- NOTE | 2017-02-16 08:50 | NUR ---
PATIENT SEEN BY DR. HINOJOSA. DETAILED REPORT GIVEN. ORDERS RECEIVED. Addendum: 02/16/17 at 1853 by CAR REYES RN DR. HINOJOSA STATED OK TO TRANSFERRED TO TELE IF CLEARED BY CARDIAC.
[2017-02-16] MEDS ORDERED: POTASSIUM CHLORIDE 20 MEQ TAB.PRT.SR PO ONE (10:15)
[2017-02-16] MEDS: FUROSEMIDE 20 MG/2 ML VIAL IV SCH (10:26)
[2017-02-16] MEDS: DOCUSATE SODIUM 100 MG CAPSULE PO SCH ×2 (10:27→20:44)
[2017-02-16] MEDS ORDERED: REFRESH LEFTEYE PRN (10:45)
--- NOTE | 2017-02-16 11:13 | NUR ---
PATIENT SEEN BY DR. HATFIELD. DETAILED REPORT GIVEN. ALSO PATIENT EVALUATED BY EYE DROPPER ASSEMBLER. SEE NEW ORDERS.
[2017-02-16] MEDS ORDERED: DEXTROSE 50% 50 ML DISP.SYRIN IV PRN (11:15)
[2017-02-16] MEDS: SIMETHICONE 80 MG TAB.CHEW PO PRN (12:18)
[2017-02-16] MEDS: LEVOFLOXACIN 500 MG/D5W 500 MG in PREMIXED 1 EACH IV SCH (15:56)
--- NOTE | 2017-02-16 16:09 | NUR ---
Cardiology services in the unit Dr. Higginbotham and patient cleared from cardiac services to telemetry.
--- NOTE | 2017-02-16 20:30 | NUR ---
PATIENT AWAKE, ALERT, ORIENTED X3, FAMILY VISITING, PATIENT IN NO APPARENTLY DISTRESS,NSR ON TELE MONITOR, DENIES ANY PAIN/DISCOMFORT,STATED MILD SOB IMPROVED AFTER BREATHING TREATMENT,O2 SAT 100 % ON O2 1 L/M N/C,BP STABLE AND WNL,FALL PRECAUTIONS,BED ALARM ON,CALL LIGHT IN REACH.F/C DRAINAGE CLEAR YELLOW URINE.
[2017-02-16] MEDS: ropiniROLE 0.5 MG TABLET NG SCH (20:44)
[2017-02-16] MEDS: INSULIN REGULAR, HUMAN 300 UNITS/3 ML VIAL SQ PRN (21:20)
--- NOTE | 2017-02-17 | NUR ---
PATIENT SLEPT WELL,NSR ON MONITOR, O2 SAT 93% IN ROOM AIR.
[2017-02-17 00:43] VITALS: BP 135/80
[2017-02-17 00:56] VITALS: BP 111/54
[2017-02-17] MEDS: IPRATROPIUM BROMIDE 0.5 MG/2.5 ML NEBU NEB SCH ×6 (02:37→22:45)
[2017-02-17] MEDS: ALBUTEROL SULFATE 1.25 MG/3 ML NEBU NEB SCH ×2 (02:37→07:53)
--- NOTE | 2017-02-17 02:38 | NUR ---
Pt not given tx due to request not the be awaken (if asleep) to give said scheduled tx. No resp. distress noted at this time.
[2017-02-17 04:00] VITALS: BP 128/82
[2017-02-17] MEDS: ACETAMINOPHEN 325 MG TABLET NG PRN ×2 (05:20→15:47)
[2017-02-17] MEDS: ACIDOPHILUS/BULGARICUS CHEW TAB NG SCH ×2 (05:20→13:01)
[2017-02-17] MEDS: PIPERACILLIN/TAZOBACTAM/D5W 3.375 G in PREMIXED 1 EACH IV SCH ×3 (05:29→21:22)
[2017-02-17] MEDS: methylPREDNISolone SOD SUCC 40 MG/ML VIAL IV SCH (05:29)
[2017-02-17] MEDS: BLOOD SUGAR DIAGNOSTIC 1 EACH STRIP VI SCH ×4 (05:46→20:23)
[2017-02-17] MEDS: LEVOTHYROXINE SODIUM 25 MCG TABLET NG SCH (06:13)
[2017-02-17 06:22] LABS: POTASSIUM 3.3 mmol/L (3.5-5.1)
[2017-02-17] MEDS: LIPASE/PROTEASE/AMYLASE 4200 UNITS CAPSULE.DR PO SCH ×3 (08:59→17:17)
[2017-02-17] MEDS ORDERED: ASPIRIN 325 MG TABLET PO SCH (09:00)
[2017-02-17] MEDS: MYCOPHENOLATE MOFETIL 250 MG CAPSULE PO SCH ×2 (09:00→20:33)
[2017-02-17] MEDS ORDERED: DILTIAZEM HCL CD 120 MG CAP.SR.24H PO SCH (09:00)
[2017-02-17] MEDS: METFORMIN HCL 500 MG TABLET NG SCH (09:00)
[2017-02-17] MEDS: FUROSEMIDE 20 MG/2 ML VIAL IV SCH (09:01)
[2017-02-17] MEDS: DOCUSATE SODIUM 100 MG CAPSULE PO SCH ×2 (09:10→20:33)
[2017-02-17] MEDS: POTASSIUM CHLORIDE 8 MEQ CAPSULE.SA PO SCH (09:10)
[2017-02-17] MEDS: CLONAZEPAM 0.5 MG TABLET NG SCH (09:10)
[2017-02-17] MEDS: NICOTINE 14 MG/24HR PATCH TD SCH (09:10)
[2017-02-17] MEDS: FERROUS SULFATE 325 MG TABEC PO SCH (09:10)
[2017-02-17] MEDS: CHOLECALCIFEROL 1,000 UNIT TABLET NG SCH (09:10)
[2017-02-17] MEDS: INSULIN REGULAR, HUMAN 300 UNIT/3 ML VIAL SQ PRN ×3 (09:11→17:17)
--- NOTE | 2017-02-17 10:10 | NUR ---
PAGED DR. DE LA ROSA, PT HAS HR 150-160'S FOR AN HOUR. PER DR. HINOJOSA CALL IMAGING ASSISTANT. DR. DE LA ROSA PAGED, LEFT. PT IS LAYING IN BED WITH NO VISUAL DISTRESS.
[2017-02-17] MEDS ORDERED: POTASSIUM CHLORIDE 20 MEQ TAB.PRT.SR PO ONE (10:15)
--- NOTE | 2017-02-17 10:22 | NUR ---
PER DR. DE LA ROSA D/C DILTAZEM 120MG SINCE PT'S HR IN 160'S
--- NOTE | 2017-02-17 10:36 | NUR ---
PT'S HR 81, HELD THE NEW ORDER FROM DR. DE LA ROSA. UN-DISCONTINUED THE CARDIZEM 120MG DAILY. ADVISED PHARMACY
[2017-02-17 11:51] VITALS: BP 125/73
[2017-02-17] MEDS: LEVOFLOXACIN 500 MG/D5W 500 MG in PREMIXED 1 EACH IV SCH (15:16)
[2017-02-17 15:40] VITALS: BP 136/78
--- NOTE | 2017-02-17 15:45 | NUR ---
EKG IN AM ON 02/[address] DE LA ROSA
[2017-02-17] MEDS: AMIODARONE HCL 200 MG TABLET PO SCH ×2 (15:48→20:33)
--- NOTE | 2017-02-17 18:59 | NUR ---
NO S/S OF RESPIRATORY DISTRESS NOTED. NO PAIN NOTED. IV LINE IS INTACT/PATENT. ALL SAFETY NEEDS ARE MET. PT IS SITTING IN BED COMFORTABLY. HR WNL
--- NOTE | 2017-02-17 19:30 | NUR ---
Report received. Patient AAO and cooperative. Family visiting. NAD noted. Addendum: 02/18/17 at 0109 by PANCHITO GARZA RN Amended: Links added.
[2017-02-17 20:00] VITALS: BP 129/76
[2017-02-17] MEDS ORDERED: HYDROCODONE/APAP 10-325 MG TABLET PO PRN (20:15)
[2017-02-17] MEDS ORDERED: ZOLPIDEM 5 MG TABLET PO PRN (20:15)
[2017-02-17] MEDS: INSULIN REGULAR, HUMAN 300 UNITS/3 ML VIAL SQ PRN (20:24)
[2017-02-17] MEDS: ropiniROLE 0.5 MG TABLET PO SCH (21:11)
[2017-02-17] MEDS ORDERED: ropiniROLE 0.5 MG TABLET ONE (21:21)
--- NOTE | 2017-02-17 22:00 | NUR ---
Up to the bathroom with minimal assistance. Mildly SOB when she went back to bed. With O2 2L NC. Monitor remains Afib rate 70's-80's. C/o headache; medicated with Tylenol. Addendum: 02/18/17 at 0113 by PANCHITO GARZA RN Amended: Links added.
[2017-02-17] MEDS: ACETAMINOPHEN 325 MG TABLET PO PRN (22:02)
[2017-02-17] MEDS ORDERED: ACETAMINOPHEN 325 MG TABLET ONE (22:04)
[2017-02-17] MEDS: ACIDOPHILUS/BULGARICUS CHEW TAB PO SCH (22:10)
[2017-02-17] MEDS ORDERED: LACTOBACILLUS RHAMNOSUS GG 1 EACH CAPSULE ONE (22:12)
--- NOTE | 2017-02-17 22:15 | NUR ---
All NGT medications changed to PO.
[2017-02-17] MEDS ORDERED: ACIDOPHILUS/BULGARICUS CHEW TAB ONE (22:18)
[2017-02-18] VITALS: BP 136/78
--- NOTE | 2017-02-18 | NUR ---
Up to the BR for urine and BM as per patient. No EKG changes.
[2017-02-18] MEDS: IPRATROPIUM BROMIDE 0.5 MG/2.5 ML NEBU NEB SCH ×6 (02:34→23:09)
[2017-02-18 04:00] VITALS: BP 133/81
--- NOTE | 2017-02-18 04:30 | NUR ---
Up to the BR by herself despite advise to call RN. Monitor Afib rate up to 140's. Patient with continuous O2 at 2 L NC. Patient verbalized desire to be independent; advised appropriately.
[2017-02-18] MEDS: PIPERACILLIN/TAZOBACTAM/D5W 3.375 G in PREMIXED 1 EACH IV SCH ×3 (05:41→21:27)
[2017-02-18] MEDS: ACIDOPHILUS/BULGARICUS CHEW TAB PO SCH ×3 (06:13→21:27)
[2017-02-18] MEDS: LEVOTHYROXINE SODIUM 25 MCG TABLET PO SCH (06:13)
[2017-02-18] MEDS ORDERED: ACIDOPHILUS/BULGARICUS CHEW TAB ONE (06:22)
[2017-02-18] MEDS ORDERED: LEVOTHYROXINE SODIUM 25 MCG TABLET ONE (06:23)
--- NOTE | 2017-02-18 06:30 | NUR ---
In and out of Afib and SR. Denies chest pain.
[2017-02-18 06:38] LABS: CREATININE 1.2 mg/dL (0.6-1.3)
[2017-02-18 06:42] LABS: BASOPHILS % (AUTO) 0.3 % (0.0-2.0); EOSINOPHILS % (AUTO) 0.1 % (0.0-7.0); HEMATOCRIT 36.8 % (37-47); LYMPHOCYTES # (AUTO) 2.6 K/UL (0.8-4.8); LYMPHOCYTES % (AUTO) 17.4 % (20.5-51.5); MEAN CORPUSCULAR HEMOGLOBIN 29.1 UUG (27.0-31.0); MEAN CORPUSCULAR HGB CONC 33 g/dL (32.0-37.0); MEAN CORPUSCULAR VOLUME 89.3 FL (81.0-99.0); MONOCYTES # (AUTO) 0.5 K/UL (0.1-1.30); MONOCYTES % (AUTO) 3.6 % (0.0-11.0); NEUTROPHILS # (AUTO) 11.8 K/UL (1.8-8.9); NEUTROPHILS % (AUTO) 78.6 % (38.5-71.5); PLATELET COUNT (AUTO) 490 K/UL (150-450); RED BLOOD CELL COUNT(AUTO) 4.12 MIL/UL (4.2-5.4); WHITE BLOOD COUNT (AUTO) 14.9 K/UL (4.0-11.2)
[2017-02-18 06:50] LABS: POTASSIUM 2.8 mmol/L (3.5-5.1)
[2017-02-18] MEDS ORDERED: POTASSIUM CHLORIDE 20 MEQ TAB.PRT.SR PO ONE (07:15)
[2017-02-18] MEDS: BLOOD SUGAR DIAGNOSTIC 1 EACH STRIP VI SCH ×4 (07:18→20:51)
[2017-02-18] MEDS ORDERED: POTASSIUM CHLORIDE 20 MEQ POWDER PACKET PO ONE ×3 (07:30→12:00)
[2017-02-18] MEDS ORDERED: POTASSIUM CHLORIDE 50 ML IV SCH (07:30)
--- NOTE | 2017-02-18 07:47 | NUR ---
d/c potassium chloride iv per dr. talbot. Re-schedule Potassium Chloride powder and give it after 2 hours of giving K-Dur Addendum: 02/18/17 at 0749 by MONCHO STARK RN Per Dr. Talbot give 100 mg of Potassium in total.
[2017-02-18] MEDS ORDERED: MAGNESIUM HYDROXIDE 30 ML LIQUID UDC PO PRN (07:53)
[2017-02-18] MEDS: MYCOPHENOLATE MOFETIL 250 MG CAPSULE PO SCH ×2 (08:11→20:45)
[2017-02-18] MEDS: METFORMIN HCL 500 MG TABLET NG SCH (08:17)
[2017-02-18] MEDS: DOCUSATE SODIUM 100 MG CAPSULE PO SCH ×2 (08:17→20:45)
[2017-02-18] MEDS: FUROSEMIDE 20 MG TABLET PO SCH (08:17)
[2017-02-18] MEDS: NICOTINE 14 MG/24HR PATCH TD SCH (08:17)
[2017-02-18] MEDS: FERROUS SULFATE 325 MG TABEC PO SCH (08:18)
[2017-02-18] MEDS: CLONAZEPAM 0.5 MG TABLET PO SCH (08:18)
[2017-02-18] MEDS: AMIODARONE HCL 200 MG TABLET PO SCH ×2 (08:18→20:44)
[2017-02-18] MEDS: CHOLECALCIFEROL 1,000 UNIT TABLET PO SCH (08:19)
[2017-02-18] MEDS: LIPASE/PROTEASE/AMYLASE 4200 UNITS CAPSULE.DR PO SCH ×3 (08:19→18:15)
[2017-02-18] MEDS: MAGNESIUM SULFATE/D5W 100 ML IV SCH ×2 (08:19→08:35)
[2017-02-18] MEDS: methylPREDNISolone SOD SUCC 40 MG/ML VIAL IV SCH (08:19)
[2017-02-18] MEDS: METOPROLOL TARTRATE 25 MG TABLET PO SCH ×2 (08:34→20:45)
[2017-02-18] MEDS ORDERED: DILTIAZEM HCL SR 60 MG CAP.SR.12H PO SCH (09:00)
[2017-02-18] MEDS ORDERED: DILTIAZEM HCL CD 120 MG CAP.SR.24H PO SCH (09:00)
[2017-02-18 11:46] VITALS: BP 111/68
[2017-02-18] MEDS: INSULIN REGULAR, HUMAN 300 UNIT/3 ML VIAL SQ PRN ×2 (13:20→18:16)
[2017-02-18 15:51] VITALS: BP 119/69
[2017-02-18] MEDS: LEVOFLOXACIN 500 MG/D5W 500 MG in PREMIXED 1 EACH IV SCH (15:57)
[2017-02-18] MEDS: RIVAROXABAN 15 MG TABLET PO SCH (18:17)
--- NOTE | 2017-02-18 19:20 | NUR ---
Bedside reporting with CHACORTA Zurita. Received patient awake on bed, family at bedside. Patient denies any pain at this time. Continue care as planned.
[2017-02-18 20:35] VITALS: BP 124/62
[2017-02-18] MEDS: ropiniROLE 0.5 MG TABLET PO SCH (20:45)
[2017-02-18] MEDS: INSULIN REGULAR, HUMAN 300 UNITS/3 ML VIAL SQ PRN (20:53)
[2017-02-18] MEDS: ACETAMINOPHEN 325 MG TABLET PO PRN (22:26)
--- NOTE | 2017-02-18 22:27 | NUR ---
Complaint of headache, Tylenol given as ordered and needed. Will monitor.
[2017-02-19 00:14] VITALS: BP 126/59
[2017-02-19] MEDS: IPRATROPIUM BROMIDE 0.5 MG/2.5 ML NEBU NEB SCH ×4 (02:33→15:24)
[2017-02-19 04:00] VITALS: BP 133/71
[2017-02-19] MEDS: PIPERACILLIN/TAZOBACTAM/D5W 3.375 G in PREMIXED 1 EACH IV SCH (05:45)
[2017-02-19] MEDS: LEVOTHYROXINE SODIUM 25 MCG TABLET PO SCH (05:46)
[2017-02-19] MEDS: ACIDOPHILUS/BULGARICUS CHEW TAB PO SCH ×2 (05:46→13:50)
[2017-02-19] MEDS: BLOOD SUGAR DIAGNOSTIC 1 EACH STRIP VI SCH ×3 (05:56→16:16)
--- NOTE | 2017-02-19 07:15 | NUR ---
REC'D BEDSIDE SBAR REPORT, PT AWAKE, POSITIONED FOR COMFORT.
[2017-02-19 08:00] VITALS: BP 106/52
[2017-02-19] MEDS ORDERED: METFORMIN HCL 500 MG TABLET PO SCH (08:00)
[2017-02-19] MEDS: LIPASE/PROTEASE/AMYLASE 4200 UNITS CAPSULE.DR PO SCH ×3 (08:50→17:02)
[2017-02-19] MEDS: MYCOPHENOLATE MOFETIL 250 MG CAPSULE PO SCH (08:50)
[2017-02-19] MEDS: methylPREDNISolone SOD SUCC 40 MG/ML VIAL IV SCH (08:50)
[2017-02-19] MEDS: AMIODARONE HCL 200 MG TABLET PO SCH (08:51)
[2017-02-19] MEDS: DOCUSATE SODIUM 100 MG CAPSULE PO SCH (08:51)
[2017-02-19] MEDS: NICOTINE 14 MG/24HR PATCH TD SCH (08:52)
[2017-02-19] MEDS: FUROSEMIDE 20 MG TABLET PO SCH (08:52)
[2017-02-19] MEDS: METOPROLOL TARTRATE 25 MG TABLET PO SCH (08:52)
[2017-02-19] MEDS: CHOLECALCIFEROL 1,000 UNIT TABLET PO SCH (08:52)
[2017-02-19] MEDS: CLONAZEPAM 0.5 MG TABLET PO SCH (08:52)
[2017-02-19] MEDS: FERROUS SULFATE 325 MG TABEC PO SCH (08:53)
[2017-02-19] MEDS ORDERED: LEVOFLOXACIN 500 MG TABLET PO SCH (09:00)
[2017-02-19] MEDS: ACETAMINOPHEN 325 MG TABLET PO PRN (11:07)
[2017-02-19 11:37] VITALS: BP 112/65
[2017-02-19] MEDS: INSULIN REGULAR, HUMAN 300 UNIT/3 ML VIAL SQ PRN ×2 (11:44→16:20)
[2017-02-19 12:41] LABS: POTASSIUM 4.2 mmol/L (3.5-5.1)
[2017-02-19 12:42] LABS: BASOPHILS # (AUTO) 0.2 K/uL (0.0-8.0); BASOPHILS % (AUTO) 1.3 % (0.0-2.0); EOSINOPHILS % (AUTO) 0.2 % (0.0-7.0); HEMATOCRIT 38.7 % (37-47); HEMOGLOBIN 12.2 G/DL (12.0-16.0); LYMPHOCYTES # (AUTO) 0.9 K/UL (0.8-4.8); LYMPHOCYTES % (AUTO) 5.4 % (20.5-51.5); MEAN CORPUSCULAR HEMOGLOBIN 28.1 UUG (27.0-31.0); MEAN CORPUSCULAR HGB CONC 32 g/dL (32.0-37.0); MONOCYTES # (AUTO) 0.4 K/UL (0.1-1.30); MONOCYTES % (AUTO) 2.4 % (0.0-11.0); NEUTROPHILS # (AUTO) 14.2 K/UL (1.8-8.9); NEUTROPHILS % (AUTO) 90.7 % (38.5-71.5); PLATELET COUNT (AUTO) 444 K/UL (150-450); RED BLOOD CELL COUNT(AUTO) 4.34 MIL/UL (4.2-5.4); WHITE BLOOD COUNT (AUTO) 15.8 K/UL (4.0-11.2)
[2017-02-19 12:47] LABS: BILIRUBIN,TOTAL 0.4 mg/dL (0.2-1.0); MAGNESIUM 2.1 mg/dL (1.8-2.4); PHOSPHOROUS 3.9 mg/dL (2.5-4.9); TOTAL PROTEIN, SERUM 6.3 g/dL (6.4-8.2)
--- NOTE | 2017-02-19 16:09 | NUR ---
sbar report to [facility].
[2017-02-19] MEDS ORDERED: ACID1TAB4 PO (16:36)
[2017-02-19] MEDS ORDERED: ROPI0.5T PO (16:36)
[2017-02-19] MEDS ORDERED: LIPA1CAP27 PO (16:36)
[2017-02-19] MEDS ORDERED: BISA10SU12 RC (16:36)
[2017-02-19] MEDS ORDERED: FURO20TA4 PO (16:36)
[2017-02-19] MEDS ORDERED: RIVA15TA PO (16:36)
[2017-02-19] MEDS ORDERED: MAGN400O6 PO (16:36)
[2017-02-19] MEDS ORDERED: METF500T4 PO (16:36)
[2017-02-19] MEDS ORDERED: FERR325T28 PO (16:36)
[2017-02-19] MEDS ORDERED: DOCU100C36 PO (16:36)
[2017-02-19] MEDS ORDERED: FLUT1DIS28 IH (16:36)
[2017-02-19] MEDS ORDERED: ACET325T53 PO (16:36)
[2017-02-19] MEDS ORDERED: CARI350T PO (16:36)
[2017-02-19] MEDS ORDERED: INSU100V28 SQ ×2 (16:36)
[2017-02-19] MEDS ORDERED: DEXT50DI8 IV (16:36)
[2017-02-19] MEDS ORDERED: NICO1PAT25 TD (16:36)
[2017-02-19] MEDS ORDERED: Blood Sugar Diagnostic VI (16:36)
[2017-02-19] MEDS ORDERED: SIME80TA45 PO (16:36)
[2017-02-19] MEDS ORDERED: ZOLP5TAB8 PO (16:36)
[2017-02-19] MEDS ORDERED: IPRA0.2S6 NEB (16:36)
[2017-02-19] MEDS ORDERED: AMIO200T6 PO (16:36)
[2017-02-19] MEDS ORDERED: HYDR-3326 PO (16:36)
[2017-02-19] MEDS ORDERED: LEVO500T2 PO (16:36)
[2017-02-19] MEDS ORDERED: METO25TA6 PO (16:36)
[2017-02-19] MEDS ORDERED: PANT40TA2 PO (16:52)
[2017-02-19] MEDS: RIVAROXABAN 15 MG TABLET PO SCH (17:03)
--- NOTE | 2017-02-19 17:04 | NUR ---
The patient will be discharged today to [facility] per Dr. Hearn. He spoke to the patient and she was in agreement with her discharge. She is refusing SNF placement and wants to go back home once ARU is done. The hot car charger, Carlyn, is aware of her discharge plan and will make sure the unit gets their report.
[2017-02-19 17:25] VITALS: BP 115/66
--- NOTE | 2017-02-19 17:27 | NUR ---
pt to rm 102 via w/c , sbar report to [facility] earlier, pt had dinner, and rec'd 2 units of reg insulin sq for blood sugar of 159 earlier.
== END 2017-02-19 17:45 | DRG 871 ==
LOC: ER 18:23 → TELE 02-11 00:12 → CCU 02-13 10:37 → TELE 02-16 18:36 → MED 02-19 15:47
PROVIDERS: ADMIT Internal Medicine; ATTEND Internal Medicine
PROC: 5A1945Z Respiratory Ventilation, 24-96 Consecutive Hours (ICD-10-PCS; principal; 2017-02-13)
PROC: 0BH17EZ Insertion of Endotracheal Airway into Trachea, Via Natural or Artificial Opening (ICD-10-PCS; 2017-02-13)
PROC: 5A09357 Assistance with Respiratory Ventilation, Less than 24 Consecutive Hours, Continuous Positive Airway Pressure (ICD-10-PCS; 2017-02-13)
PROC: 02HV33Z Insertion of Infusion Device into Superior Vena Cava, Percutaneous Approach (ICD-10-PCS; 2017-02-16)
DX: A41.9 Sepsis, unspecified organism (principal); J96.21 Acute and chronic respiratory failure with hypoxia; E43 Unspecified severe protein-calorie malnutrition; G92 Toxic encephalopathy; J96.22 Acute and chronic respiratory failure with hypercapnia; R65.21 Severe sepsis with septic shock; J69.0 Pneumonitis due to inhalation of food and vomit; I50.31 Acute diastolic (congestive) heart failure; N39.0 Urinary tract infection, site not specified; D68.59 Other primary thrombophilia; J44.1 Chronic obstructive pulmonary disease with (acute) exacerbation; E11.65 Type 2 diabetes mellitus with hyperglycemia; E03.9 Hypothyroidism, unspecified; D50.9 Iron deficiency anemia, unspecified; F17.200 Nicotine dependence, unspecified, uncomplicated; Z79.4 Long term (current) use of insulin; E66.9 Obesity, unspecified; E78.5 Hyperlipidemia, unspecified; E83.42 Hypomagnesemia; E87.6 Hypokalemia; F41.9 Anxiety disorder, unspecified; G47.30 Sleep apnea, unspecified; H54.41 Blindness, right eye, normal vision left eye; I25.10 Atherosclerotic heart disease of native coronary artery without angina pectoris; K59.00 Constipation, unspecified; Z79.52 Long term (current) use of systemic steroids; Z79.899 Other long term (current) drug therapy; Z68.34 Body mass index [BMI] 34.0-34.9, adult; Z79.51 Long term (current) use of inhaled steroids; K21.9 Gastro-esophageal reflux disease without esophagitis; M06.9 Rheumatoid arthritis, unspecified; M19.90 Unspecified osteoarthritis, unspecified site; G89.29 Other chronic pain; R65.20 Severe sepsis without septic shock; I48.2 Chronic atrial fibrillation; I48.91 Unspecified atrial fibrillation; R19.5 Other fecal abnormalities; Z74.09 Other reduced mobility
CPT/HCPCS: 36415; 36569; 36600; 70030-TC; 71010; 73521; 74000; 82306; 82746; 83550; 83605; 83735; 84100; 84443; 85025; 85651; 85730; 86140; 87040; 87070; 87077; 87086; 93005; 93307; 94002; 94003; 94640; 94660; 94664; 97116; 97161; 97530; A4663; J0282; J0330; J0696; J1815; J1940; J1956; J2060; J2270; J2370; J2543; J2916; J2920; J3475; J3480; J3490; J3590; J7030; J7040; J7060; J7512; J7517

== ENCOUNTER 2017-02-19 18:11 | Inpatient (IN) | payer MEDICARE, MEDICAID ==
[~2017-02-19] VITALS: Ht 154.9 cm; Wt 77.1 kg
[~2017-02-19 18:11] MED LIST: ACET325T53 PO; ACID1TAB4 PO; AMIO200T6 PO; BISA10SU12 RC; BLOO-140 IN; BRIM5DRO2 LEFTEYE; BRIN8DRO LEFTEYE; BUDE10.2 IH; Blood Sugar Diagnostic VI; CARI350T PO; CHOL200026 PO; CLON0.5T4 PO; DEXT50DI8 IV; DICL75TA5 PO; DOCU100C36 PO; ESOM40CA PO; FERR240T9 PO; FERR325T28 PO; FLUT16SP NS; FLUT1DIS28 IH; FURO20TA4 PO; GATI2.5D LEFTEYE; GUAI-960 PO; HYDR-3326 PO; HYDR-3980 PO; HYDR25TA4 PO; INSU100V28 SQ; INSU300I SQ; IPRA0.2S6 NEB; LEVO25TA2 PO; LEVO500T2 PO; LIPA1CAP15 PO; LIPA1CAP27 PO; MAGN400O6 PO; METF500T4 PO; METO25TA6 PO; METO50TA3 PO; MYCO500T PO; NICO1PAT25 TD; PANT40TA2 PO; POTA8TAB8 PO; PRED-170 PO; RANI150T8 PO; RIVA15TA PO; ROPI0.5T PO; SIME80TA45 PO; TELM1TAB18 PO; TORS20TA3 PO; ZOLP10TA6 PO; ZOLP5TAB8 PO
[2017-02-19 18:16] VITALS: BP 132/76
[2017-02-19] MEDS ORDERED: Z GUARD REMEDY PASTE 57 GM TUBE TOP PRN (18:30)
[2017-02-19] MEDS ORDERED: ZOLPIDEM 5 MG TABLET PO PRN (19:30)
[2017-02-19] MEDS ORDERED: BISACODYL 10 MG SUPP.RECT RC PRN (19:30)
[2017-02-19] MEDS ORDERED: LEVOFLOXACIN 500 MG TABLET PO SCH (19:30)
[2017-02-19] MEDS ORDERED: INSULIN REGULAR, HUMAN 300 UNIT/3 ML VIAL SQ PRN ×2 (19:30)
[2017-02-19] MEDS ORDERED: IPRATROPIUM BROMIDE 0.5 MG/2.5 ML NEBU NEB PRN (19:30)
[2017-02-19] MEDS ORDERED: CARISOPRODOL 350 MG TABLET PO PRN (19:30)
[2017-02-19] MEDS ORDERED: DEXTROSE 50% 50 ML DISP.SYRIN IV PRN ×2 (19:30→21:00)
[2017-02-19] MEDS ORDERED: SIMETHICONE 80 MG TAB.CHEW PO PRN (19:30)
--- NOTE | 2017-02-19 19:30 | NUR ---
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 Patient is alert, verbally responsive, coherent, afebrile, not in any form of acute distress. She denies any pain or discomfort at this time. Family at bedside (, sister and [id number]). Routine admission care rendered. Oriented to staff, room and use of devices with verbalized understanding. Call light placed within reach. Reminded to use call light for assistance. Assisted to her needs. Dr. Dallas made aware of admission and saw patient. Dr. Corbett notified of admission and saw patient and did med recon.
--- NOTE | 2017-02-19 20:00 | NUR ---
RECEIVED PATIENT SITTING IN CHAIR AT BEDSIDE WITH FAMILY IN ROOM. PATIENT IS A/O X4. HAITIAN SPEAKING BUT SPEAKS MINIMAL HUNGARIAN AND ABLE TO MAKE NEEDS KNOWN. VS WNL. ON O2 2L NC SATING WELL. C/O PAIN IN LOWER BACK THAT RADIATES DOWN LEFT LEG AT TIMES. ORIENTED PATIENT TO ROOM AND CALL LIGHT. PICC LINE, TRIPLE LUMEN NOTED TO RIGHT UPPER ARM, INTACT. BRUISING NOTED AROUND PICC LINE SITE. CALL LIGHT IN REACH. ALL NEEDS ATTENDED. WILL CONTINUE TO MONITOR AND ASSESS.
[2017-02-19] MEDS: METOPROLOL TARTRATE 25 MG TABLET PO SCH (21:00)
[2017-02-19] MEDS ORDERED: AMIODARONE HCL 200 MG TABLET PO SCH (21:00)
[2017-02-19] MEDS ORDERED: FLUTICASONE/SALMETEROL 250/50 INHALER IH SCH (21:00)
[2017-02-19] MEDS: INSULIN REGULAR, HUMAN 300 UNITS/3 ML VIAL SQ PRN (21:14)
[2017-02-19] MEDS: BLOOD SUGAR DIAGNOSTIC 1 EACH STRIP VI SCH (21:14)
[2017-02-19] MEDS: ropiniROLE 0.5 MG TABLET PO SCH (21:17)
[2017-02-19] MEDS: ACETAMINOPHEN 325 MG TABLET PO PRN (21:17)
[2017-02-19] MEDS: DOCUSATE SODIUM 100 MG CAPSULE PO SCH (21:17)
--- NOTE | 2017-02-19 21:20 | NUR ---
PATIENT C/O PAIN IN LOWER BACK THAT ALSO RADIATES DOWN LOWER LEGS, MORE SO ON THE LEFT AT THIS TIME. OFFERED NORCO ORDERED PRN BUT PATIENT REFUSED THE NEED FOR NORCO. PATIENT GIVEN TYLENOL 650MG PO PRN OF MILD PAIN. MADE COMFORTABLE. CALL LIGHT IN REACH. BED ALARM ON. ALL NEEDS ATTENDED. WILL CONTINUE TO MONITOR AND ASSESS.
[2017-02-19 21:34] VITALS: BP 126/70
--- NOTE | 2017-02-19 22:30 | NUR ---
PATIENT ASLEEP IN BED. ON O2 2L NC SATING WELL. NO RESP. DISTRESS NOTED. BED ALARM ON. CALL LIGHT IN REACH. ALL NEEDS ATTENDED. WILL CONTINUE TO MONITOR AND ASSESS.
--- NOTE | 2017-02-20 05:45 | NUR ---
PATIENT ASLEEP IN BED. EASILY AROUSABLE. DENIES PAIN. SLEPT WELL THROUGHOUT THE NIGHT. BED ALARM ON. CALL LIGHT IN REACH. ALL NEEDS ATTENDED. WILL CONTINUE TO MONITOR AND ASSESS.
[2017-02-20] MEDS: ACIDOPHILUS/BULGARICUS CHEW TAB PO SCH ×3 (06:00→14:45)
[2017-02-20] MEDS: BLOOD SUGAR DIAGNOSTIC 1 EACH STRIP VI SCH ×5 (06:40→20:57)
--- NOTE | 2017-02-20 06:42 | NUR ---
PATIENT ASLEEP IN BED. SLEEPING WELL. REFUSED FOR ACCU-CHECK AT THIS TIME. WILL ENDORSE TO AM SHIFT TO CHECK ONCE PATIENT IS FULLY AWAKE. BED ALARM ON. ALL NEEDS ATTENDED. WILL CONTINUE TO MONITOR.
--- NOTE | 2017-02-20 07:12 | NUR ---
PATIENT IS NOW FULLY AWAKE SITTING CHAIR AT BEDSIDE. PATIENT COOPERATIVE AND COMPLIANT WITH ACCU-CHECK. BS 93. PATIENT STATED SHE SLEPT VERY GOOD. DENIES PAIN OR DISCOMFORT. ALL NEEDS ATTENDED. WILL CONTINUE TO MONITOR.
[2017-02-20] MEDS: LIPASE/PROTEASE/AMYLASE 4200 UNITS CAPSULE.DR PO SCH ×3 (08:00→17:09)
[2017-02-20 08:04] LABS: BASOPHILS # (AUTO) 0.2 K/uL (0.0-8.0); BASOPHILS % (AUTO) 1.4 % (0.0-2.0); EOSINOPHILS # (AUTO) 0.1 K/uL (0.0-0.7); HEMATOCRIT 39.9 % (37-47); HEMOGLOBIN 12.8 G/DL (12.0-16.0); LYMPHOCYTES # (AUTO) 2.7 K/UL (0.8-4.8); LYMPHOCYTES % (AUTO) 18.8 % (20.5-51.5); MEAN CORPUSCULAR HEMOGLOBIN 28.6 UUG (27.0-31.0); MEAN CORPUSCULAR HGB CONC 32 g/dL (32.0-37.0); MEAN CORPUSCULAR VOLUME 89.1 FL (81.0-99.0); MONOCYTES # (AUTO) 1.1 K/UL (0.1-1.30); MONOCYTES % (AUTO) 7.3 % (0.0-11.0); NEUTROPHILS # (AUTO) 10.3 K/UL (1.8-8.9); NEUTROPHILS % (AUTO) 71.5 % (38.5-71.5); PLATELET COUNT (AUTO) 466 K/UL (150-450); RED BLOOD CELL COUNT(AUTO) 4.47 MIL/UL (4.2-5.4); WHITE BLOOD COUNT (AUTO) 14.4 K/UL (4.0-11.2)
--- NOTE | 2017-02-20 08:06 | NUR ---
DAILY NOTE RECEIVED UP IN CHAIR AWAKE IN NO ACUTE DISTRESS. BLOOD DRAW FROM PICC LINE FOR LABS LISBETH WELL. INTRODUCE MY SELF TO HER HER NURSE ATTEDNED TO HER NEEDS. NO C/O PAIN
[2017-02-20 08:18] LABS: CREATININE 1.1 mg/dL (0.6-1.3); PHOSPHOROUS 3.7 mg/dL (2.5-4.9); POTASSIUM 3.6 mmol/L (3.5-5.1)
[2017-02-20] MEDS ORDERED: Medication Not On Formulary EA (Cholecalciferol (Vitamin D3) (Vitamin D3 TAB) 2,000 UNIT PO SCH (09:00)
[2017-02-20] MEDS ORDERED: CLONAZEPAM 0.5 MG TABLET PO SCH (09:00)
[2017-02-20] MEDS: AMIODARONE HCL 200 MG TABLET PO SCH ×2 (09:22→20:55)
[2017-02-20] MEDS: LEVOTHYROXINE SODIUM 25 MCG TABLET PO SCH (09:22)
[2017-02-20] MEDS: METFORMIN HCL 500 MG TABLET PO SCH ×2 (09:22→17:09)
[2017-02-20] MEDS: METOPROLOL TARTRATE 25 MG TABLET PO SCH ×2 (09:22→20:56)
[2017-02-20] MEDS: FUROSEMIDE 20 MG TABLET PO SCH (09:22)
[2017-02-20] MEDS: HYDROCODONE/APAP 5-325MG TABLET PO PRN ×2 (09:23→14:45)
[2017-02-20] MEDS: PANTOPRAZOLE SODIUM 40 MG TABLET.DR PO SCH (09:24)
[2017-02-20] MEDS: CHOLECALCIFEROL 1,000 UNIT TABLET PO SCH (09:24)
[2017-02-20] MEDS: predniSONE 5 MG TABLET PO SCH (09:24)
[2017-02-20] MEDS: FERROUS SULFATE 325 MG TABEC PO SCH (09:24)
[2017-02-20] MEDS: NICOTINE 14 MG/24HR PATCH TD SCH (09:25)
[2017-02-20] MEDS: LEVOFLOXACIN 500 MG TABLET PO SCH (09:25)
[2017-02-20] MEDS: DOCUSATE SODIUM 100 MG CAPSULE PO SCH ×2 (09:26→20:55)
[2017-02-20] MEDS: FLUTICASONE/VILANTEROL 1 EACH BLST.W.DEV INH SCH (09:30)
[2017-02-20 10:33] VITALS: BP 127/60
[2017-02-20] MEDS: MAGNESIUM HYDROXIDE 30 ML LIQUID UDC PO PRN (14:47)
[2017-02-20] MEDS: RIVAROXABAN 15 MG TABLET PO SCH (17:09)
[2017-02-20] MEDS: LIDOCAINE 5% PATCH TD SCH (17:12)
[2017-02-20] MEDS: INSULIN REGULAR, HUMAN 300 UNIT/3 ML VIAL SQ PRN (17:13)
[2017-02-20] MEDS ORDERED: BRIMONIDINE 0.2% OPHT DROP 10 ML BOTTLE LEFTEYE SCH ×2 (18:06→21:00)
[2017-02-20] MEDS ORDERED: TIMOLOL MALEATE 0.5% OPHT DROP 5 ML BOTTLE LEFTEYE SCH ×2 (18:06→21:00)
--- NOTE | 2017-02-20 19:03 | NUR ---
DAILY NOTES TIMOLOL NOT GIVEN ALPHAGAN NOT GIVEN. PT AND STATES THESE MEDS ARE OLD AND NOT BEING USED ANYMORE.. THE ONLY EYE DROPS THE PT IS TAKING ARE ERYTHROMYCIN 0.5% EYE ANDRAE TO RIGHT EYE AT BEDTIME. AND REFRESH 1 GTT THREE TIMES A DAY
--- NOTE | 2017-02-20 19:25 | NUR ---
Received report from CHACORTA Gamble. Seen patient and family at the bedside
--- NOTE | 2017-02-20 19:30 | NUR ---
Coordinated with Dr. Corbett the erythromycin ointment abd refresh that the pt taking currently at home. Pt no longerbusing Mario and Nelly, see notes from day shift. Obtained MD's orders and relayed to Pharmacy.
[2017-02-20] MEDS ORDERED: CARBOXYMETHYLCELLULOSE SODIUM DROPERETTE LEFTEYE PRN (20:15)
--- NOTE | 2017-02-20 20:30 | NUR ---
Administered all night meds including erythromycin ointmnent (right eye).
[2017-02-20] MEDS ORDERED: CARBOXYMETHYLCELLULOSE LEFTEYE PRN (20:45)
[2017-02-20] MEDS: ERYTHROMYCIN 0.5% OPHT OINT 3.5 GM TUBE RIGHTEYE SCH (20:56)
[2017-02-20] MEDS: ropiniROLE 0.5 MG TABLET PO SCH (20:56)
--- NOTE | 2017-02-20 22:00 | NUR ---
Made pt comfortable, prepare for sleep.Call light w/in reach,bed to lowest position. Advice to call for assistance/questions/needs pertaining to hospital stay.
--- NOTE | 2017-02-21 | NUR ---
Asleep, breathing normally (snores), continue monitor.
[2017-02-21] MEDS: ACETAMINOPHEN 325 MG TABLET PO PRN ×2 (02:01→20:40)
[2017-02-21 04:28] VITALS: BP 145/84
[2017-02-21] MEDS: ACIDOPHILUS/BULGARICUS CHEW TAB PO SCH ×3 (06:17→21:00)
[2017-02-21] MEDS: HYDROCODONE/APAP 5-325MG TABLET PO PRN (06:27)
[2017-02-21] MEDS: BLOOD SUGAR DIAGNOSTIC 1 EACH STRIP VI SCH ×4 (06:35→20:39)
--- NOTE | 2017-02-21 07:00 | NUR ---
Awake, sitting in the chair, AM care done, report to CHACORTA Munoz
[2017-02-21] MEDS: LIPASE/PROTEASE/AMYLASE 4200 UNITS CAPSULE.DR PO SCH ×3 (08:15→17:08)
[2017-02-21] MEDS: PANTOPRAZOLE SODIUM 40 MG TABLET.DR PO SCH (08:45)
[2017-02-21] MEDS: CHOLECALCIFEROL 1,000 UNIT TABLET PO SCH (08:46)
[2017-02-21] MEDS: LEVOTHYROXINE SODIUM 25 MCG TABLET PO SCH (08:46)
[2017-02-21] MEDS: LEVOFLOXACIN 500 MG TABLET PO SCH (08:46)
[2017-02-21] MEDS: predniSONE 5 MG TABLET PO SCH (08:46)
[2017-02-21] MEDS: DOCUSATE SODIUM 100 MG CAPSULE PO SCH ×2 (08:46→20:40)
[2017-02-21] MEDS: FUROSEMIDE 20 MG TABLET PO SCH (08:46)
[2017-02-21] MEDS: FERROUS SULFATE 325 MG TABEC PO SCH (08:46)
[2017-02-21] MEDS: METFORMIN HCL 500 MG TABLET PO SCH ×2 (08:47→17:10)
[2017-02-21] MEDS: SERTRALINE HCL 50 MG TABLET PO SCH (08:47)
[2017-02-21] MEDS: AMIODARONE HCL 200 MG TABLET PO SCH (08:47)
[2017-02-21] MEDS: METOPROLOL TARTRATE 25 MG TABLET PO SCH ×2 (08:48→20:54)
[2017-02-21] MEDS: FLUTICASONE/VILANTEROL 1 EACH BLST.W.DEV INH SCH (08:48)
[2017-02-21] MEDS: NICOTINE 14 MG/24HR PATCH TD SCH (08:49)
[2017-02-21] MEDS: LIDOCAINE 5% PATCH TD SCH (08:49)
[2017-02-21 08:52] VITALS: BP 120/77
[2017-02-21] MEDS: INSULIN REGULAR, HUMAN 300 UNIT/3 ML VIAL SQ PRN ×2 (12:12→17:10)
[2017-02-21] MEDS: RIVAROXABAN 15 MG TABLET PO SCH (17:07)
--- NOTE | 2017-02-21 19:30 | NUR ---
Received patient in bed. Family at bedside. Alert and oriented. Able to make needs known. Denies any pain and discomfort. No acute distress. No SOB. Patient on O2 @ 2L via nasal cannula. Kept clean and dry. All needs attended to promptly. Call light within reach. Will continue to monitor.
[2017-02-21 20:38] VITALS: BP 109/61
[2017-02-21] MEDS: ropiniROLE 0.5 MG TABLET PO SCH (20:52)
[2017-02-21] MEDS: ERYTHROMYCIN 0.5% OPHT OINT 3.5 GM TUBE RIGHTEYE SCH (20:54)
--- NOTE | 2017-02-22 04:28 | NUR ---
Patient verbalizes feeling increased heart palpitations. VS checked. BP 145/84 with pulse rate ranging between 116-124 at rest. Patient is alert and verbally responsive. No c/o any pain at this time. No c/o chest pain. O2 saturation at 97%. No SOB noted. No labored breathing. Sitting up at edge of bed. Called [facility]. Spoke with Derick Montgomery NP. Made him aware that pt. did not receive her scheduled Lopressor 25mg PO last night @ 2100 due to low blood pressure. Per MANA[employer] COMMUNITY, to give Lopressor 25mg PO x1 now. New orders acknowledged and carried out. Will reassess in an hour. Patient is stable at this time. All needs attended to promptly. Call light within reach. Will continue to monitor.
[2017-02-22] MEDS ORDERED: METOPROLOL TARTRATE 25 MG TABLET PO SCH (04:30)
[2017-02-22] MEDS ORDERED: METOPROLOL TARTRATE 25 MG TABLET ONE (04:48)
[2017-02-22 05:28] VITALS: BP 110/84
[2017-02-22] MEDS: ACIDOPHILUS/BULGARICUS CHEW TAB PO SCH ×3 (06:07→21:04)
[2017-02-22] MEDS: ACETAMINOPHEN 325 MG TABLET PO PRN (06:09)
--- NOTE | 2017-02-22 06:11 | NUR ---
Patient awake at this time. BP is 110/84, HR is 96. Patient in no acute distress at this time. No c/o pain. All needs attended to promptly. Call light within reach. Will continue to monitor.
[2017-02-22] MEDS: BLOOD SUGAR DIAGNOSTIC 1 EACH STRIP VI SCH ×4 (06:44→21:02)
[2017-02-22 08:07] VITALS: BP 116/61
[2017-02-22] MEDS: METFORMIN HCL 500 MG TABLET PO SCH ×2 (08:37→17:26)
[2017-02-22] MEDS: LEVOFLOXACIN 500 MG TABLET PO SCH (08:37)
[2017-02-22] MEDS: FUROSEMIDE 20 MG TABLET PO SCH (08:37)
[2017-02-22] MEDS: predniSONE 10 MG TABLET PO SCH (08:38)
[2017-02-22] MEDS: METOPROLOL TARTRATE 25 MG TABLET PO SCH ×2 (08:38→21:08)
[2017-02-22] MEDS: CHOLECALCIFEROL 1,000 UNIT TABLET PO SCH (08:38)
[2017-02-22] MEDS: PANTOPRAZOLE SODIUM 40 MG TABLET.DR PO SCH (08:38)
[2017-02-22] MEDS: FERROUS SULFATE 325 MG TABEC PO SCH (08:38)
[2017-02-22] MEDS: SERTRALINE HCL 50 MG TABLET PO SCH (08:38)
[2017-02-22] MEDS: LIPASE/PROTEASE/AMYLASE 4200 UNITS CAPSULE.DR PO SCH ×3 (08:39→17:26)
[2017-02-22] MEDS: FLUTICASONE/VILANTEROL 1 EACH BLST.W.DEV INH SCH (08:39)
[2017-02-22] MEDS: LIDOCAINE 5% PATCH TD SCH (08:39)
[2017-02-22] MEDS: NICOTINE 14 MG/24HR PATCH TD SCH (08:40)
[2017-02-22] MEDS: LEVOTHYROXINE SODIUM 25 MCG TABLET PO SCH (08:42)
[2017-02-22] MEDS: DOCUSATE SODIUM 100 MG CAPSULE PO SCH ×2 (08:42→21:03)
[2017-02-22] MEDS: INSULIN REGULAR, HUMAN 300 UNIT/3 ML VIAL SQ PRN ×2 (12:10→17:26)
[2017-02-22] MEDS: AMIODARONE HCL 200 MG TABLET PO SCH ×2 (13:17→21:03)
[2017-02-22] MEDS: RIVAROXABAN 15 MG TABLET PO SCH (17:24)
--- NOTE | 2017-02-22 19:15 | NUR ---
RECEIVED PATIENT SEATED IN CHAIR WITH FAMILY, NO COMPLAIN OF PAIN AT THIS TIME, NO SOB, NO CHEST PAIN NOTED, R EYE SWELLING STILL PRESENT, CONT ABX ORDERED, ASSISTED WITH TOILETING, CONTINENT OF BOWEL AND BLADDER. CONT TO MONITOR.
--- NOTE | 2017-02-22 19:43 | NUR ---
pt seen by calender worker helper about blood pressure complications. md called for low blood pressure. md recommeded fluids and give meds as prescribed. pt had no complications since checked by calender worker helper. pt adhered to meds. pt given scd pumps. no loc changes. pt given bp meds to control bp and hr. blood sugar chcked and provided insulin as prescribed. will endorse new orders to night worker nurse.
[2017-02-22 20:08] VITALS: BP 108/59
[2017-02-22] MEDS: ERYTHROMYCIN 0.5% OPHT OINT 3.5 GM TUBE RIGHTEYE SCH (21:04)
[2017-02-22] MEDS: ropiniROLE 0.5 MG TABLET PO SCH (21:08)
[2017-02-23] MEDS: ACIDOPHILUS/BULGARICUS CHEW TAB PO SCH ×3 (06:06→21:12)
[2017-02-23] MEDS: BLOOD SUGAR DIAGNOSTIC 1 EACH STRIP VI SCH ×4 (06:09→21:10)
[2017-02-23] MEDS: ACETAMINOPHEN 325 MG TABLET PO PRN ×3 (06:16→21:11)
--- NOTE | 2017-02-23 07:32 | NUR ---
PATIENT SLEEP AT LEAST 6 HRS, COMPLAIN OF LOWER BACK PAIN, GIVEN PAIN MEDS, NO SOB NO CHEST PAIN NOTED, V/S WNL CONT TO MONITOR.
--- NOTE | 2017-02-23 07:45 | NUR ---
RECEIVED PATIENT AWAKE, RESTING IN BED. NOT IN ANY FORM OF DISTRESS. BED SIDE REPORT RECEIVED. WITH TOLERABLE PAIN OVER RIGHT LOWER BACK AND SAID PATCH WILL DO LATER ON. CALL LIGHT WITHIN REACH. ENCOURAGED TO CALL FOR NEEDS.
[2017-02-23] MEDS: METFORMIN HCL 500 MG TABLET PO SCH ×2 (08:23→17:21)
[2017-02-23] MEDS: LIPASE/PROTEASE/AMYLASE 4200 UNITS CAPSULE.DR PO SCH ×3 (08:24→17:22)
[2017-02-23] MEDS: FLUTICASONE/VILANTEROL 1 EACH BLST.W.DEV INH SCH (08:26)
[2017-02-23] MEDS: DOCUSATE SODIUM 100 MG CAPSULE PO SCH ×2 (08:27→21:12)
[2017-02-23] MEDS: predniSONE 10 MG TABLET PO SCH (08:32)
[2017-02-23] MEDS: FUROSEMIDE 20 MG TABLET PO SCH (08:32)
[2017-02-23] MEDS: CHOLECALCIFEROL 1,000 UNIT TABLET PO SCH (08:32)
[2017-02-23] MEDS: SERTRALINE HCL 50 MG TABLET PO SCH (08:32)
[2017-02-23] MEDS: FERROUS SULFATE 325 MG TABEC PO SCH (08:32)
[2017-02-23] MEDS: LEVOTHYROXINE SODIUM 25 MCG TABLET PO SCH (08:32)
[2017-02-23] MEDS: PANTOPRAZOLE SODIUM 40 MG TABLET.DR PO SCH (08:32)
[2017-02-23 08:33] VITALS: BP 114/51
[2017-02-23] MEDS: METOPROLOL TARTRATE 25 MG TABLET PO SCH ×2 (08:33→21:00)
[2017-02-23] MEDS: LIDOCAINE 5% PATCH TD SCH (08:35)
[2017-02-23] MEDS: NICOTINE 14 MG/24HR PATCH TD SCH (08:35)
[2017-02-23] MEDS: AMIODARONE HCL 200 MG TABLET PO SCH ×2 (09:00→21:13)
--- NOTE | 2017-02-23 09:13 | NUR ---
AR- 51, BP 114/51. Not in any form of distress. No shortness of breath noted. Still with 02 at 2 LPM. Withheld Cordarone because of AR of 51. Will continue to monitor.
--- NOTE | 2017-02-23 11:30 | NUR ---
COMPLAINED OF GENERALIZED PAIN AND PATIENT SAID SHE GOT TIRED FROM THERAPY. TYLENOL PRN GIVEN.
[2017-02-23] MEDS: INSULIN REGULAR, HUMAN 300 UNIT/3 ML VIAL SQ PRN ×2 (11:44→17:24)
[2017-02-23] MEDS: RIVAROXABAN 15 MG TABLET PO SCH (17:22)
--- NOTE | 2017-02-23 18:05 | NUR ---
WITH RELATIVES AT BEDSIDE WITH SOME DISCOMFORT OVER LOWER BACH, RELIEF WITH HOT PACK
--- NOTE | 2017-02-23 19:30 | NUR ---
Received patient in bed asleep. Family at bedside. Patient in no acute distress. Sleeping comfortably. All needs attended to promptly. Call light within reach. Will continue to monitor.
[2017-02-23 19:52] VITALS: BP 94/49
[2017-02-23] MEDS: ERYTHROMYCIN 0.5% OPHT OINT 3.5 GM TUBE RIGHTEYE SCH (21:10)
[2017-02-23] MEDS: ropiniROLE 0.5 MG TABLET PO SCH (21:12)
[2017-02-23] MEDS ORDERED: ONDANSETRON HCL 4 MG TABLET PO PRN (23:00)
[2017-02-24] MEDS: HYDROCODONE/APAP 5-325MG TABLET PO PRN ×2 (02:51→15:32)
[2017-02-24 06:32] LABS: BASOPHILS # (AUTO) 0.1 K/uL (0.0-8.0); BASOPHILS % (AUTO) 0.7 % (0.0-2.0); EOSINOPHILS # (AUTO) 0.1 K/uL (0.0-0.7); EOSINOPHILS % (AUTO) 0.9 % (0.0-7.0); HEMATOCRIT 38.3 % (37-47); HEMOGLOBIN 12.8 G/DL (12.0-16.0); LYMPHOCYTES # (AUTO) 2.7 K/UL (0.8-4.8); LYMPHOCYTES % (AUTO) 24.5 % (20.5-51.5); MEAN CORPUSCULAR HEMOGLOBIN 29.4 UUG (27.0-31.0); MEAN CORPUSCULAR HGB CONC 33 g/dL (32.0-37.0); MEAN CORPUSCULAR VOLUME 88.3 FL (81.0-99.0); MONOCYTES # (AUTO) 1.2 K/UL (0.1-1.30); MONOCYTES % (AUTO) 11.2 % (0.0-11.0); NEUTROPHILS % (AUTO) 62.7 % (38.5-71.5); PLATELET COUNT (AUTO) 312 K/UL (150-450); RED BLOOD CELL COUNT(AUTO) 4.34 MIL/UL (4.2-5.4); WHITE BLOOD COUNT (AUTO) 11.1 K/UL (4.0-11.2)
[2017-02-24] MEDS: ACIDOPHILUS/BULGARICUS CHEW TAB PO SCH ×3 (06:44→21:00)
[2017-02-24] MEDS: BLOOD SUGAR DIAGNOSTIC 1 EACH STRIP VI SCH ×4 (06:48→20:43)
--- NOTE | 2017-02-24 06:48 | NUR ---
Patient awake. Slept comfortably throughout the night. 7am medication given. Tolerated well. BS is 109. No coverage needed. No s/s of hypoglycemic. All needs attended to promptly. Call light within reach. Will continue to monitor.
--- NOTE | 2017-02-24 07:40 | NUR ---
Received patient, awake, alert and oriented x4. Sitting in bed, eating breakfast. With some discomfort over lower back but tolerable. Not in any form of distress.
[2017-02-24 07:43] LABS: BILIRUBIN,TOTAL 0.3 mg/dL (0.2-1.0); MAGNESIUM 1.8 mg/dL (1.8-2.4); PHOSPHOROUS 3.7 mg/dL (2.5-4.9); POTASSIUM 3.5 mmol/L (3.5-5.1); TOTAL PROTEIN, SERUM 6.4 g/dL (6.4-8.2)
[2017-02-24 07:54] VITALS: BP 92/55
[2017-02-24] MEDS: FLUTICASONE/VILANTEROL 1 EACH BLST.W.DEV INH SCH (08:25)
[2017-02-24] MEDS: LIPASE/PROTEASE/AMYLASE 4200 UNITS CAPSULE.DR PO SCH ×3 (08:25→17:09)
[2017-02-24] MEDS: DOCUSATE SODIUM 100 MG CAPSULE PO SCH ×2 (08:26→20:40)
[2017-02-24] MEDS: LEVOTHYROXINE SODIUM 25 MCG TABLET PO SCH (08:26)
[2017-02-24] MEDS: SERTRALINE HCL 50 MG TABLET PO SCH (08:26)
[2017-02-24] MEDS: FERROUS SULFATE 325 MG TABEC PO SCH (08:26)
[2017-02-24] MEDS: CHOLECALCIFEROL 1,000 UNIT TABLET PO SCH (08:26)
[2017-02-24] MEDS: METFORMIN HCL 500 MG TABLET PO SCH ×2 (08:26→17:09)
[2017-02-24] MEDS: LIDOCAINE 5% PATCH TD SCH (08:27)
[2017-02-24] MEDS: PANTOPRAZOLE SODIUM 40 MG TABLET.DR PO SCH (08:27)
[2017-02-24] MEDS: predniSONE 10 MG TABLET PO SCH (08:27)
[2017-02-24] MEDS: FUROSEMIDE 20 MG TABLET PO SCH (08:27)
[2017-02-24] MEDS: NICOTINE 14 MG/24HR PATCH TD SCH (08:28)
[2017-02-24] MEDS: AMIODARONE HCL 200 MG TABLET PO SCH ×2 (08:39→20:40)
[2017-02-24] MEDS: METOPROLOL TARTRATE 25 MG TABLET PO SCH ×2 (08:57→20:41)
[2017-02-24] MEDS: INSULIN REGULAR, HUMAN 300 UNIT/3 ML VIAL SQ PRN ×2 (13:35→17:03)
--- NOTE | 2017-02-24 15:36 | NUR ---
COMPLAINED OF LOW BACK PAIN RATED 8/10. HOT PACK OFFERED AND PRN NORCO GIVEN. WITH FAMILY AT BEDSIDE.
[2017-02-24] MEDS: RIVAROXABAN 15 MG TABLET PO SCH (17:11)
[2017-02-24] MEDS: BENZOCAINE ORAL CARE 12 ML BOTTLE MM PRN ×2 (17:26→20:47)
--- NOTE | 2017-02-24 18:32 | NUR ---
With family at bedside. Patient relived with pain. Not in any form of distress. Attended to needs promptly. Call light within reach.
--- NOTE | 2017-02-24 19:30 | NUR ---
Received patient sitting up in chair. Family in room. Patient is alert and oriented. Able to make needs known. Denies any pain and discomfort at this time. No acute distress. No SOB. Kept clean and dry. All needs attended to promptly. Call light within reach. Will continue to monitor.
[2017-02-24 20:19] VITALS: BP 116/57
[2017-02-24] MEDS: ropiniROLE 0.5 MG TABLET PO SCH (20:41)
[2017-02-24] MEDS: ERYTHROMYCIN 0.5% OPHT OINT 3.5 GM TUBE RIGHTEYE SCH (20:44)
[2017-02-25] MEDS: HYDROCODONE/APAP 5-325MG TABLET PO PRN (01:08)
[2017-02-25] MEDS: MAGNESIUM HYDROXIDE 30 ML LIQUID UDC PO PRN (01:11)
[2017-02-25] MEDS: ACIDOPHILUS/BULGARICUS CHEW TAB PO SCH ×3 (06:40→21:03)
[2017-02-25] MEDS: BLOOD SUGAR DIAGNOSTIC 1 EACH STRIP VI SCH ×4 (06:42→21:02)
--- NOTE | 2017-02-25 06:43 | NUR ---
Patient awake at this time. Slept comfortably throughout the night. 7am med given. BS is 119. No coverage needed. No c/o pain and discomfort at this time. No acute distress. All needs attended to promptly. Call light within reach. Will continue to monitor.
[2017-02-25 07:30] VITALS: BP 96/54
[2017-02-25] MEDS: FLUTICASONE/VILANTEROL 1 EACH BLST.W.DEV INH SCH (08:20)
[2017-02-25] MEDS: LIPASE/PROTEASE/AMYLASE 4200 UNITS CAPSULE.DR PO SCH ×3 (08:21→17:04)
[2017-02-25] MEDS: predniSONE 10 MG TABLET PO SCH (08:21)
[2017-02-25] MEDS: DOCUSATE SODIUM 100 MG CAPSULE PO SCH ×2 (08:21→21:03)
[2017-02-25] MEDS: LEVOTHYROXINE SODIUM 25 MCG TABLET PO SCH (08:21)
[2017-02-25] MEDS: LIDOCAINE 5% PATCH TD SCH (08:21)
[2017-02-25] MEDS: NICOTINE 14 MG/24HR PATCH TD SCH (08:21)
[2017-02-25] MEDS: PANTOPRAZOLE SODIUM 40 MG TABLET.DR PO SCH (08:21)
[2017-02-25] MEDS: FERROUS SULFATE 325 MG TABEC PO SCH (08:21)
[2017-02-25] MEDS: METFORMIN HCL 500 MG TABLET PO SCH ×2 (08:21→17:04)
[2017-02-25] MEDS: SERTRALINE HCL 50 MG TABLET PO SCH (08:21)
[2017-02-25] MEDS: CHOLECALCIFEROL 1,000 UNIT TABLET PO SCH (08:21)
[2017-02-25] MEDS: FUROSEMIDE 20 MG TABLET PO SCH (08:22)
[2017-02-25] MEDS: METOPROLOL TARTRATE 25 MG TABLET PO SCH ×2 (09:00→21:00)
[2017-02-25] MEDS: AMIODARONE HCL 200 MG TABLET PO SCH ×2 (10:04→21:04)
[2017-02-25] MEDS: ACETAMINOPHEN 325 MG TABLET PO PRN (10:07)
--- NOTE | 2017-02-25 10:08 | NUR ---
metropolol not given due to decreased blood presurre. pt states that she has dizziness. pt given tylenol for pain and instructed to drink fluids to increase blood pressure. will continue to reassess for complications.
[2017-02-25] MEDS: INSULIN REGULAR, HUMAN 300 UNIT/3 ML VIAL SQ PRN ×2 (12:09→16:49)
[2017-02-25] MEDS: RIVAROXABAN 15 MG TABLET PO SCH (17:28)
[2017-02-25] MEDS ORDERED: methylPREDNISolone ACETATE 40 MG VIAL IM ONE (19:00)
[2017-02-25] MEDS ORDERED: LIDOCAINE HCL 1% 20 ML VIAL IJ PRN (19:00)
--- NOTE | 2017-02-25 19:00 | NUR ---
RECEIVED PATIENT IN HER ROOM WITH FAMILY NO SOB NO CHEST PAIN NOTED, CONTINENT OF BOWEL AND BLADDER, CONT EYE OINT FOR R EYE, WITH NO ADVERSE REACTION NOTED, NO COMPLAIN OF PAIN AT THIS TIME.
--- NOTE | 2017-02-25 19:35 | NUR ---
pt had no signs and symptoms of acute distress during shift. pt was in pain and was provided meds. pt given pain medication shots by dr argueta. pt adhered to meds and rehab therapy. pt tolerated therapy. provided comfort meausres. will continue to endorse new orders to sales associate fishing nurse.
[2017-02-25 20:00] VITALS: BP 97/59
[2017-02-25] MEDS: ERYTHROMYCIN 0.5% OPHT OINT 3.5 GM TUBE RIGHTEYE SCH (21:03)
[2017-02-25] MEDS: ropiniROLE 0.5 MG TABLET PO SCH (21:03)
--- NOTE | 2017-02-25 21:09 | NUR ---
Becky MARADIAGA COME AND ADMINISTER THE STEROID TO THE PATIENT.
[2017-02-26] MEDS: HYDROCODONE/APAP 5-325MG TABLET PO PRN ×2 (02:04→21:33)
[2017-02-26] MEDS: BENZOCAINE ORAL CARE 12 ML BOTTLE MM PRN ×2 (02:05→08:46)
--- NOTE | 2017-02-26 05:29 | NUR ---
PATIENT SLEPT ALMOST MOST OF THE NIGHT, NO SOB NO CHEST PAIN, CONT ON PAIN MANAGEMENT OF BACK, PELVIC PAIN, MEDICATED FOR PAIN WITH HELP AFTER ONE HOUR, CONTINENT OF BOWEL AND BLADDER, CONT TO MONITOR.
[2017-02-26] MEDS: ACIDOPHILUS/BULGARICUS CHEW TAB PO SCH ×3 (06:05→21:38)
[2017-02-26] MEDS: BLOOD SUGAR DIAGNOSTIC 1 EACH STRIP VI SCH ×4 (06:11→21:34)
[2017-02-26 07:03] VITALS: BP 102/66
--- NOTE | 2017-02-26 08:00 | NUR ---
RECEIVED PATIENT AWAKE IN CHAIR. ALERT AND ORIENTED. NOT IN ANY FORM OF DISTRESS. NO PAIN NOTED. CALL LIGHT WITHIN REACH
[2017-02-26] MEDS: METFORMIN HCL 500 MG TABLET PO SCH ×2 (08:43→17:30)
[2017-02-26] MEDS: LIPASE/PROTEASE/AMYLASE 4200 UNITS CAPSULE.DR PO SCH ×3 (08:44→17:30)
[2017-02-26] MEDS: DOCUSATE SODIUM 100 MG CAPSULE PO SCH ×2 (08:44→21:25)
[2017-02-26] MEDS: FERROUS SULFATE 325 MG TABEC PO SCH (08:44)
[2017-02-26] MEDS: LEVOTHYROXINE SODIUM 25 MCG TABLET PO SCH (08:44)
[2017-02-26] MEDS: FLUTICASONE/VILANTEROL 1 EACH BLST.W.DEV INH SCH (08:45)
[2017-02-26] MEDS: NICOTINE 14 MG/24HR PATCH TD SCH (08:45)
[2017-02-26] MEDS: FUROSEMIDE 20 MG TABLET PO SCH (08:45)
[2017-02-26] MEDS: predniSONE 10 MG TABLET PO SCH (08:45)
[2017-02-26] MEDS: CHOLECALCIFEROL 1,000 UNIT TABLET PO SCH (08:45)
[2017-02-26] MEDS: SERTRALINE HCL 50 MG TABLET PO SCH (08:45)
[2017-02-26] MEDS: PANTOPRAZOLE SODIUM 40 MG TABLET.DR PO SCH (08:45)
[2017-02-26] MEDS: LIDOCAINE 5% PATCH TD SCH (08:45)
[2017-02-26] MEDS: AMIODARONE HCL 200 MG TABLET PO SCH ×2 (08:45→21:25)
[2017-02-26] MEDS: METOPROLOL TARTRATE 25 MG TABLET PO SCH ×2 (08:58→21:00)
--- NOTE | 2017-02-26 10:17 | NUR ---
Dealmaker: SW met with pt at bedside to assess needs and provide support. Pt is a 71-year-old female admitted to ARU due to weakness and functional decline. Pt appeared calm and cooperative during interview. Pt reported to have a hx of arthritis, along with three unsuccessful attempts at right eye corneal transplant. Pt is legally blind in her right eye and has long hx of other comorbidities. Per chart, the pt is a heavy cigarette smoker. Per chart, pt was consulted by psychiatry and was diagnosed with Mood disorder, not otherwise specified. At this time, pt expressed to be coping well with rehabilitation, and stated "I'm doing better everyday." Per pt, she lives at home alone and has an [facility] caregiver. Pt reported that her caregiver assists her at home due to being legally blind. However, she stated that she feels she may benefit from additional hours from another caregiving agency. Pt reported she is , and that her ex- is attempting to help and be involved in her care. She expressed to have limited support due to family members having other obligations. Pt did appear somewhat depressed due to various medical issues and limited support. SW supportive counseling to address patients issues of loss related to hospitalization on the unit. SW engaged in active listening. SW will provide linkage to resources (case management,social support, adult day cares). SW will provide referrals for outpatient treatment for counseling.
[2017-02-26] MEDS: INSULIN REGULAR, HUMAN 300 UNIT/3 ML VIAL SQ PRN ×2 (11:52→16:42)
--- NOTE | 2017-02-26 13:09 | NUR ---
UP WITH OCCUPATIONAL THERAPY. TOLERATING THERAPY WELL. NO COMPLAINTS OF PAIN/DISCOMFORT AT THIS TIME.
[2017-02-26] MEDS: RIVAROXABAN 15 MG TABLET PO SCH (17:33)
--- NOTE | 2017-02-26 19:15 | NUR ---
RECEIVED PATIENT IN HER ROOM NO SOB NO CHEST PAIN, CONT R EYE OINT TX, COMPLAIN OF HIP PAIN, NO S/S OF DISTRESS.
[2017-02-26 20:00] VITALS: BP 95/53
[2017-02-26] MEDS: ERYTHROMYCIN 0.5% OPHT OINT 3.5 GM TUBE RIGHTEYE SCH (21:25)
[2017-02-26] MEDS: ropiniROLE 0.5 MG TABLET PO SCH (21:26)
[2017-02-26] MEDS: INSULIN REGULAR, HUMAN 300 UNITS/3 ML VIAL SQ PRN (21:30)
--- NOTE | 2017-02-27 05:36 | NUR ---
PATIENT SLEPT MOST OF THE NIGHT, NO SOB NO CHEST PAIN, ON PAIN MANAGEMENT, MEDICATED FOR PAIN, STAND BY ASSIST WITH TOILETING, PICC LINE R UPPER ARM DRESSING INTACT, NO S/S OF DISTRESS.
[2017-02-27] MEDS: ACIDOPHILUS/BULGARICUS CHEW TAB PO SCH ×3 (06:13→20:53)
[2017-02-27] MEDS: BLOOD SUGAR DIAGNOSTIC 1 EACH STRIP VI SCH ×4 (06:21→21:02)
[2017-02-27] MEDS: INSULIN REGULAR, HUMAN 300 UNIT/3 ML VIAL SQ PRN ×3 (07:40→16:47)
[2017-02-27] MEDS: LIPASE/PROTEASE/AMYLASE 4200 UNITS CAPSULE.DR PO SCH ×3 (07:41→18:11)
[2017-02-27 07:59] VITALS: BP 106/55
--- NOTE | 2017-02-27 08:12 | NUR ---
RECEIVED PATIENT SEATED IN CHAIR. AWAKE, ALERT AND ORIENTED X4. NO COMPLAINTS OF PAIN/ DISCOMFORT. NOT IN ANY FORM OF DISTRESS. WITH 02 AT 2LMP, INTACT PICC LINE OVER RIGHT UPPER ARM.
[2017-02-27] MEDS: FLUTICASONE/VILANTEROL 1 EACH BLST.W.DEV INH SCH (08:25)
[2017-02-27] MEDS: DOCUSATE SODIUM 100 MG CAPSULE PO SCH ×2 (08:25→20:53)
[2017-02-27] MEDS: METFORMIN HCL 500 MG TABLET PO SCH ×2 (08:25→18:11)
[2017-02-27] MEDS: LEVOTHYROXINE SODIUM 25 MCG TABLET PO SCH (08:26)
[2017-02-27] MEDS: CHOLECALCIFEROL 1,000 UNIT TABLET PO SCH (08:26)
[2017-02-27] MEDS: FUROSEMIDE 20 MG TABLET PO SCH (08:26)
[2017-02-27] MEDS: AMIODARONE HCL 200 MG TABLET PO SCH ×2 (08:26→20:54)
[2017-02-27] MEDS: FERROUS SULFATE 325 MG TABEC PO SCH (08:26)
[2017-02-27] MEDS: predniSONE 10 MG TABLET PO SCH (08:26)
[2017-02-27] MEDS: PANTOPRAZOLE SODIUM 40 MG TABLET.DR PO SCH (08:26)
[2017-02-27] MEDS: LIDOCAINE 5% PATCH TD SCH (08:27)
[2017-02-27] MEDS: SERTRALINE HCL 50 MG TABLET PO SCH (08:27)
[2017-02-27] MEDS: NICOTINE 14 MG/24HR PATCH TD SCH (08:27)
[2017-02-27] MEDS: BENZOCAINE ORAL CARE 12 ML BOTTLE MM PRN (08:28)
[2017-02-27] MEDS: METOPROLOL TARTRATE 25 MG TABLET PO SCH ×2 (08:39→20:54)
[2017-02-27] MEDS: ACETAMINOPHEN 325 MG TABLET PO PRN (12:46)
--- NOTE | 2017-02-27 12:56 | NUR ---
COMPLETED THERAPY. COMPLAINED OF PAIN OVER LOWER BACK RATED 6/10. TYLENOL PRN GIVEN.
--- NOTE | 2017-02-27 14:09 | NUR ---
REHAB TEAM CONFERENCE 02/27/17
[2017-02-27] MEDS: RIVAROXABAN 15 MG TABLET PO SCH (18:13)
[2017-02-27 20:37] VITALS: BP 118/62
[2017-02-27] MEDS: ropiniROLE 0.5 MG TABLET PO SCH (20:53)
[2017-02-27] MEDS: HYDROCODONE/APAP 5-325MG TABLET PO PRN (20:53)
[2017-02-27] MEDS: ERYTHROMYCIN 0.5% OPHT OINT 3.5 GM TUBE RIGHTEYE SCH (20:58)
--- NOTE | 2017-02-28 06:30 | NUR ---
slept well after norco given, still no bm per pt but passes gas.
[2017-02-28] MEDS: ACIDOPHILUS/BULGARICUS CHEW TAB PO SCH ×3 (06:40→22:21)
[2017-02-28] MEDS: BLOOD SUGAR DIAGNOSTIC 1 EACH STRIP VI SCH ×4 (06:40→20:36)
[2017-02-28] MEDS: AMIODARONE HCL 200 MG TABLET PO SCH ×2 (08:03→20:35)
[2017-02-28] MEDS: METOPROLOL TARTRATE 25 MG TABLET PO SCH ×2 (08:04→20:35)
[2017-02-28] MEDS: LIPASE/PROTEASE/AMYLASE 4200 UNITS CAPSULE.DR PO SCH ×3 (08:43→17:41)
[2017-02-28] MEDS: FLUTICASONE/VILANTEROL 1 EACH BLST.W.DEV INH SCH (08:44)
[2017-02-28] MEDS: FUROSEMIDE 20 MG TABLET PO SCH (08:44)
[2017-02-28] MEDS: CHOLECALCIFEROL 1,000 UNIT TABLET PO SCH (08:44)
[2017-02-28] MEDS: PANTOPRAZOLE SODIUM 40 MG TABLET.DR PO SCH (08:44)
[2017-02-28] MEDS: FERROUS SULFATE 325 MG TABEC PO SCH (08:44)
[2017-02-28] MEDS: METFORMIN HCL 500 MG TABLET PO SCH ×2 (08:44→17:42)
[2017-02-28] MEDS: LEVOTHYROXINE SODIUM 25 MCG TABLET PO SCH (08:44)
[2017-02-28] MEDS: DOCUSATE SODIUM 100 MG CAPSULE PO SCH ×2 (08:44→20:34)
[2017-02-28] MEDS: SERTRALINE HCL 50 MG TABLET PO SCH (08:45)
[2017-02-28] MEDS: predniSONE 10 MG TABLET PO SCH (08:45)
[2017-02-28] MEDS: LIDOCAINE 5% PATCH TD SCH (08:46)
[2017-02-28] MEDS: NICOTINE 14 MG/24HR PATCH TD SCH (08:46)
[2017-02-28 08:52] VITALS: BP 107/55
[2017-02-28] MEDS: ACETAMINOPHEN 325 MG TABLET PO PRN ×2 (12:06→20:36)
[2017-02-28] MEDS: INSULIN REGULAR, HUMAN 300 UNIT/3 ML VIAL SQ PRN ×2 (12:11→17:44)
[2017-02-28] MEDS: RIVAROXABAN 15 MG TABLET PO SCH (17:42)
--- NOTE | 2017-02-28 19:28 | NUR ---
PT IS SITTING IN CHAIR COMFORTABLY. NO S/S OF RESPIRATORY DISTRESS NOTED ALL SAFETY NEEDS ARE MET.
--- NOTE | 2017-02-28 19:50 | NUR ---
RECEIVED PATIENT AWAKE IN ROOM. A/O X4. VERY PLEASANT WHEN APPROACHED. C/O MILD PAIN BUT REFUSES FOR ANY NORCO. PATIENT STATED SHE WOULD LIKE TO TAKE TYLENOL WITH HER HS MEDS THE NORCO IS MAKING HER TOO SLEEPY. PATIENT IS ALSO REQUESTING FOR MILK OF MAG PRN TO BE GIVEN WITH HS MEDS. UNABLE TO HAVE A BOWEL MOVEMENT. VS WNL. NO RESP. DISTRESS NOTED. CALL LIGHT IN REACH. ALL NEEDS ATTENDED.WILL CONTINUE TO MONITOR AND ASSESS.
[2017-02-28] MEDS: ropiniROLE 0.5 MG TABLET PO SCH (20:36)
[2017-02-28] MEDS: MAGNESIUM HYDROXIDE 30 ML LIQUID UDC PO PRN (20:36)
[2017-02-28 21:47] VITALS: BP 119/66
--- NOTE | 2017-02-28 22:41 | NUR ---
PATIENT WAS GIVEN TYLENOL 650MG PO PRN FOR MILD PAIN AND MOM 30ML PO PRN FOR CONSTIPATION. BOTH EFFECTIVE. PATIENT DENIES ANY PAIN OR DISCOMFORT. PATIENT HAD A BOWEL MOVEMENT. ALL NEEDS ATTENDED. WILL CONTINUE TO MONITOR AND ASSESS.
--- NOTE | 2017-03-01 06:10 | NUR ---
PATIENT ASLEEP IN BED. EASILY AROUSABLE. DENIES PAIN. NO RESP. DISTRESS NOTED. ON O2 2L NC SATING WELL. SLEPT WELL THROUGHOUT THE NIGHT. BED ALARM ON. CALL LIGHT IN REACH. ALL NEEDS ATTENDED. WILL CONTINUE TO MONITOR AND ASSESS.
[2017-03-01] MEDS: ACIDOPHILUS/BULGARICUS CHEW TAB PO SCH ×3 (06:28→21:20)
[2017-03-01] MEDS: BLOOD SUGAR DIAGNOSTIC 1 EACH STRIP VI SCH ×4 (06:34→21:26)
--- NOTE | 2017-03-01 07:05 | NUR ---
Pt received in bed, a/o X4, No distress noted, with O2 at 2l via NC. Plan of care discussed, side rails x2 elevated, call light and personal belongings within reach.
[2017-03-01 07:50] LABS: BASOPHILS # (AUTO) 0.1 K/uL (0.0-8.0); BASOPHILS % (AUTO) 1.1 % (0.0-2.0); EOSINOPHILS # (AUTO) 0.1 K/uL (0.0-0.7); EOSINOPHILS % (AUTO) 0.5 % (0.0-7.0); HEMATOCRIT 42.7 % (37-47); HEMOGLOBIN 13.7 G/DL (12.0-16.0); LYMPHOCYTES # (AUTO) 2.6 K/UL (0.8-4.8); LYMPHOCYTES % (AUTO) 20.6 % (20.5-51.5); MEAN CORPUSCULAR HEMOGLOBIN 28.8 UUG (27.0-31.0); MEAN CORPUSCULAR HGB CONC 32 g/dL (32.0-37.0); MEAN CORPUSCULAR VOLUME 89.8 FL (81.0-99.0); MONOCYTES # (AUTO) 1.4 K/UL (0.1-1.30); NEUTROPHILS # (AUTO) 8.3 K/UL (1.8-8.9); NEUTROPHILS % (AUTO) 66.8 % (38.5-71.5); PLATELET COUNT (AUTO) 417 K/UL (150-450); RED BLOOD CELL COUNT(AUTO) 4.76 MIL/UL (4.2-5.4); WHITE BLOOD COUNT (AUTO) 12.5 K/UL (4.0-11.2)
[2017-03-01 08:10] LABS: BILIRUBIN,TOTAL 0.4 mg/dL (0.2-1.0); MAGNESIUM 1.9 mg/dL (1.8-2.4); PHOSPHOROUS 3.5 mg/dL (2.5-4.9); POTASSIUM 4.3 mmol/L (3.5-5.1); TOTAL PROTEIN, SERUM 7.5 g/dL (6.4-8.2)
[2017-03-01 08:11] VITALS: BP 126/61
[2017-03-01 08:28] LABS: LYMPHOCYTES % (MANUAL) 23 % (20-40); MONOCYTES % (MANUAL) 10 % (2-10); NEUTROPHILS % (MANUAL) 67 % (42-75)
[2017-03-01] MEDS: LEVOTHYROXINE SODIUM 25 MCG TABLET PO SCH (08:55)
[2017-03-01] MEDS: METOPROLOL TARTRATE 25 MG TABLET PO SCH ×2 (08:55→21:20)
[2017-03-01] MEDS: FERROUS SULFATE 325 MG TABEC PO SCH (08:55)
[2017-03-01] MEDS: METFORMIN HCL 500 MG TABLET PO SCH ×2 (08:56→17:09)
[2017-03-01] MEDS: FUROSEMIDE 20 MG TABLET PO SCH (08:56)
[2017-03-01] MEDS: DOCUSATE SODIUM 100 MG CAPSULE PO SCH ×2 (08:56→21:20)
[2017-03-01] MEDS: AMIODARONE HCL 200 MG TABLET PO SCH ×2 (08:56→21:21)
[2017-03-01] MEDS: predniSONE 10 MG TABLET PO SCH (08:56)
[2017-03-01] MEDS: PANTOPRAZOLE SODIUM 40 MG TABLET.DR PO SCH (08:56)
[2017-03-01] MEDS: SERTRALINE HCL 50 MG TABLET PO SCH (08:57)
[2017-03-01] MEDS: ACETAMINOPHEN 325 MG TABLET PO PRN ×2 (08:57→17:09)
[2017-03-01] MEDS: LIDOCAINE 5% PATCH TD SCH (08:57)
[2017-03-01] MEDS: NICOTINE 14 MG/24HR PATCH TD SCH (08:57)
[2017-03-01] MEDS: LIPASE/PROTEASE/AMYLASE 4200 UNITS CAPSULE.DR PO SCH ×3 (08:58→17:09)
[2017-03-01] MEDS: FLUTICASONE/VILANTEROL 1 EACH BLST.W.DEV INH SCH (08:58)
[2017-03-01] MEDS: BENZOCAINE ORAL CARE 12 ML BOTTLE MM PRN (09:04)
--- NOTE | 2017-03-01 09:06 | NUR ---
Schedule meds given as order. Lidoderm patch applied to Right hip, nicotine patch applied to left deltoid. Pt ambulating with PT after meds. Tylenol 650 mg PO given for headache 5/10 pain scale. will con't to monitor
[2017-03-01] MEDS: INSULIN REGULAR, HUMAN 300 UNIT/3 ML VIAL SQ PRN (12:41)
[2017-03-01] MEDS: CHOLECALCIFEROL 1,000 UNIT TABLET PO SCH (12:43)
--- NOTE | 2017-03-01 15:30 | NUR ---
PICC line dressing changed, pt tolerated procedure well.
--- NOTE | 2017-03-01 17:09 | NUR ---
Pt sitting on chair, schedule medications given along with tylenol 650mg PO for c/o of headache 12/05. Will con't to monitor.
[2017-03-01] MEDS: RIVAROXABAN 15 MG TABLET PO SCH (17:11)
--- NOTE | 2017-03-01 18:48 | NUR ---
Pt seen by Dr. Corbett received orders to d/c PICC line.
[2017-03-01] MEDS: ropiniROLE 0.5 MG TABLET PO SCH (21:20)
[2017-03-01] MEDS: HYDROCODONE/APAP 5-325MG TABLET PO PRN (21:20)
[2017-03-01 21:22] VITALS: BP 100/63
[2017-03-02 01:30] VITALS: BP 125/79
--- NOTE | 2017-03-02 01:48 | NUR ---
0100= PT COMPLAINS OF CHEST DISCOMFORT, SHE FEELS HER HEARTBEAT PUMPING FAST,PT CALLED TEACHER OF [employer] AND TOOK HR ,READS 112 BEATS/MIN. TE[employer]ER [employer] CALLED ME AND WENT TO PT AND PT STATED SHE FEELS LIKE SOMEBODY SITTING ON HER CHEST, PT DENIES SHORT OF BREATH, DENIES HAVING ANXIETY.ORDERED PLACED FOR EKG BY DR. GILL AND READ AFIB WITH RVR WITH HR OF 133 BEATS/MIN.BP 125/79 HR 129 SPO2 96% ,PAGED DINING ROOM HOST/HOSTESS, HUMBERTO JACKSON AND LEFT MESSAGE TO ANSWERING SERVICE.AWAITING FOR CALL BACK.
[2017-03-02 02:15] VITALS: BP 117/70
--- NOTE | 2017-03-02 02:25 | NUR ---
UNABLE TO GET A HOLD OF [facility] DOCTOR AUTISM TEACHER AFTER MULTIPLE ATTEMPTS.DR UDDLEY NOTIFIED OF PATIENT'S C/O PALPITATIONS,FEELING OF CHEST PAIN, VITAL SIGNS AND EKG RESULTS THAT WAS DONE AT 0136, SHOWING ATRIAL FIB WITH RVR OF HR-132/MIN.AWAITING RESPONSE
--- NOTE | 2017-03-02 02:40 | NUR ---
RECEIVED A CALL FROM DR. ORESTES MCINTOSH MADE AWARE OF PT CHEST PAIN EPISODE, ORDERED TO GIVE METOPROLOL 25MG ORAL X1, TROPONIN @ 0500, THEN HUMBERTO JACKSON CALLED BACK AND ADD ADDITIONAL TROPONIN IN 6 HRS.
[2017-03-02] MEDS ORDERED: METOPROLOL TARTRATE 25 MG TABLET PO SCH (02:45)
[2017-03-02] MEDS ORDERED: METOPROLOL TARTRATE 25 MG TABLET ONE (03:04)
--- NOTE | 2017-03-02 03:29 | NUR ---
TROPONIN STAT DRAWN FROM PICC LINE, CHEST XRAY DONE
[2017-03-02] MEDS ORDERED: METO25TA6 PO (03:31)
[2017-03-02] MEDS ORDERED: IPRA0.2S6 NEB (03:31)
[2017-03-02] MEDS ORDERED: FERR325T28 PO (03:31)
[2017-03-02] MEDS ORDERED: SERT50TA12 PO (03:31)
[2017-03-02] MEDS ORDERED: CARI350T27 PO (03:31)
[2017-03-02] MEDS ORDERED: PRED10TA PO (03:31)
[2017-03-02] MEDS ORDERED: NICO1PAT25 TD (03:31)
[2017-03-02] MEDS ORDERED: FLUT1BLS INH (03:31)
[2017-03-02] MEDS ORDERED: RIVA15TA PO (03:31)
[2017-03-02] MEDS ORDERED: ACID1TAB4 PO (03:31)
[2017-03-02] MEDS ORDERED: LIPA1CAP27 PO (03:31)
[2017-03-02] MEDS ORDERED: LIDO30AD10 TD (03:31)
[2017-03-02] MEDS ORDERED: DOCU100C36 PO (03:31)
[2017-03-02] MEDS ORDERED: ROPI0.5T PO (03:31)
[2017-03-02] MEDS ORDERED: METF500T4 PO (03:31)
[2017-03-02] MEDS ORDERED: CHOL10002 PO (03:31)
[2017-03-02] MEDS ORDERED: LEVO25TA9 PO (03:31)
[2017-03-02] MEDS ORDERED: AMIO200T6 PO (03:31)
[2017-03-02] MEDS ORDERED: FURO20TA4 PO (03:31)
--- NOTE | 2017-03-02 03:34 | NUR ---
NOTED ORDERS FOR PT TO TRANSFER TELE ROOM 216 IS READY FOR HER WILL CALL AND GIVE REPORT.
[2017-03-02 04:00] VITALS: BP 105/62
--- NOTE | 2017-03-02 04:15 | NUR ---
PT TRANSPORTED TO TELE BY BED,ALL BELONGINGS SENT REPORT GIVEN TO ABDELRAHMAN
[2017-03-03] MEDS ORDERED: ACET325T53 PO (15:44)
[2017-03-03] MEDS ORDERED: PANT40TA2 PO (15:44)
[2017-03-03] MEDS ORDERED: DOCU-141 PO (15:44)
[2017-03-03] MEDS ORDERED: AMIO200T6 PO (15:44)
[2017-03-03] MEDS ORDERED: NITR100C11 PO (16:03)
== END 2017-03-03 11:58 | disposition short-term general hospital (02) | DRG 871 ==
PROVIDERS: ADMIT Physical Medicine & Rehabilitation Pain Medicine; ATTEND Physical Medicine & Rehabilitation Pain Medicine
DX: A41.9 Sepsis, unspecified organism (principal); G93.40 Encephalopathy, unspecified; R65.21 Severe sepsis with septic shock; E43 Unspecified severe protein-calorie malnutrition; J69.0 Pneumonitis due to inhalation of food and vomit; N39.0 Urinary tract infection, site not specified; J96.12 Chronic respiratory failure with hypercapnia; J96.11 Chronic respiratory failure with hypoxia; J44.0 Chronic obstructive pulmonary disease with (acute) lower respiratory infection; I50.32 Chronic diastolic (congestive) heart failure; E66.9 Obesity, unspecified; M06.9 Rheumatoid arthritis, unspecified; I48.0 Paroxysmal atrial fibrillation; I11.0 Hypertensive heart disease with heart failure; K21.9 Gastro-esophageal reflux disease without esophagitis; F17.210 Nicotine dependence, cigarettes, uncomplicated; E03.9 Hypothyroidism, unspecified; H54.41 Blindness, right eye, normal vision left eye; G89.29 Other chronic pain; M54.5 Low back pain; E11.65 Type 2 diabetes mellitus with hyperglycemia; E61.1 Iron deficiency; E78.5 Hyperlipidemia, unspecified; F32.9 Major depressive disorder, single episode, unspecified; F41.9 Anxiety disorder, unspecified; R53.81 Other malaise; Z68.34 Body mass index [BMI] 34.0-34.9, adult; Z79.52 Long term (current) use of systemic steroids; M51.16 Intervertebral disc disorders with radiculopathy, lumbar region; R00.1 Bradycardia, unspecified; R00.2 Palpitations; F43.23 Adjustment disorder with mixed anxiety and depressed mood; G47.33 Obstructive sleep apnea (adult) (pediatric)
CPT/HCPCS: 36415; 70030-TC; 71010; 83690; 83735; 84100; 85025; 92610; 93005; 97110; 97112; 97116; 97161; 97530; 97535; A9150; J1030; J1815; J3490; J7512

== ENCOUNTER 2017-03-02 04:21 | Inpatient (IN) | payer MEDICARE, MEDICAID ==
[~2017-03-02] VITALS: Ht 154.9 cm; Wt 75.6 kg
--- NOTE | 2017-03-02 04:00 | NUR ---
RECEIVED PATIENT FROM ARU VIA HOSPITAL BED. NO ACUTE DISTRESS NOTED. PROCESSED BELONGINGS LIST. USHERED TO ROOM. PATIENT ABLE TO MAKE NEEDS KNOWN. ABLE TO PROVIDE HX. TELE LEADS APPLIED. SAFETY INITIATED. CALL LIGHT WITHIN REACH. WILL CONTINUE TO MONITOR.
[~2017-03-02 04:21] MED LIST changes: -BLOO-140 IN; -BRIN8DRO LEFTEYE; -BUDE10.2 IH; +CARI350T27 PO; +CHOL10002 PO; -DICL75TA5 PO; -ESOM40CA PO; -FERR240T9 PO; -FLUT16SP NS; +FLUT1BLS INH; -GATI2.5D LEFTEYE; -GUAI-960 PO; -HYDR-3980 PO; -HYDR25TA4 PO; -INSU300I SQ; +LEVO25TA9 PO; +LIDO30AD10 TD; -LIPA1CAP15 PO; -METO50TA3 PO; -MYCO500T PO; -POTA8TAB8 PO; +PRED10TA PO; -RANI150T8 PO; +SERT50TA12 PO; -TELM1TAB18 PO; -TORS20TA3 PO; -ZOLP10TA6 PO
[2017-03-02 05:54] VITALS: BP 94/53
[2017-03-02] MEDS ORDERED: ZOLPIDEM 5 MG TABLET PO PRN (06:15)
[2017-03-02] MEDS ORDERED: HYDROCODONE/APAP 5-325MG TABLET PO PRN (06:15)
[2017-03-02] MEDS ORDERED: ONDANSETRON 4 MG/2 ML VIAL IV PRN (06:15)
[2017-03-02] MEDS ORDERED: DEXTROSE 50% 50 ML DISP.SYRIN IV PRN (06:15)
--- NOTE | 2017-03-02 06:17 | NUR ---
NO CHANGES T/O SHIFT. TELE SINUS CAMILO AT 54. NO ACUTE DISTRESS NOTED. CALL LIGHT WITHIN REACH. WILL CONTINUE TO MONITOR.
--- NOTE | 2017-03-02 06:20 | NUR ---
PICC LINE TRIPLE LUMEN IN THE RIGHT UPPER ARM PATENT AND INTACT. AMBULATORY. A&O X'S 4.
[2017-03-02] MEDS ORDERED: CARISOPRODOL 350 MG TABLET PO PRN (06:30)
[2017-03-02] MEDS ORDERED: IPRATROPIUM BROMIDE 0.5 MG/2.5 ML NEBU NEB PRN (06:30)
[2017-03-02] MEDS: BLOOD SUGAR DIAGNOSTIC 1 EACH STRIP VI SCH ×4 (06:56→20:59)
[2017-03-02] MEDS: LIPASE/PROTEASE/AMYLASE 4200 UNITS CAPSULE.DR PO SCH ×3 (08:00→17:26)
[2017-03-02] MEDS: INSULIN REGULAR, HUMAN 300 UNIT/3 ML VIAL SQ PRN ×3 (08:11→16:42)
[2017-03-02] MEDS: METOPROLOL TARTRATE 25 MG TABLET PO SCH ×3 (09:00→22:37)
[2017-03-02] MEDS: PANTOPRAZOLE SODIUM 40 MG TABLET.DR PO SCH (09:01)
[2017-03-02] MEDS: DOCUSATE SODIUM 100 MG CAPSULE PO SCH ×2 (09:01→20:59)
[2017-03-02] MEDS: LEVOTHYROXINE SODIUM 25 MCG TABLET PO SCH (09:02)
[2017-03-02] MEDS: FUROSEMIDE 20 MG TABLET PO SCH (09:02)
[2017-03-02] MEDS: CHOLECALCIFEROL 1,000 UNIT TABLET PO SCH (09:02)
[2017-03-02] MEDS: METFORMIN HCL 500 MG TABLET PO SCH ×2 (09:02→17:27)
[2017-03-02] MEDS: SERTRALINE HCL 50 MG TABLET PO SCH (09:03)
[2017-03-02] MEDS: NICOTINE 14 MG/24HR PATCH TD SCH (09:03)
[2017-03-02] MEDS: FERROUS SULFATE 325 MG TABEC PO SCH (09:03)
[2017-03-02] MEDS: AMIODARONE HCL 200 MG TABLET PO SCH ×2 (09:08→21:00)
[2017-03-02] MEDS: predniSONE 10 MG TABLET PO SCH (09:11)
[2017-03-02] MEDS: FLUTICASONE/VILANTEROL 1 EACH BLST.W.DEV INH SCH (09:19)
--- NOTE | 2017-03-02 10:00 | NUR ---
PATIENT IS IN HER BED RESTING COMFORTABLY STATED DID NOT SLEEP LAST NITE AND IS VERY TIRED.DUE MEDICATIONS WERE GIVEN AND TOLERATED WELL.
[2017-03-02 11:10] VITALS: BP 109/64
[2017-03-02] MEDS: LIDOCAINE 5% PATCH TD SCH (11:11)
[2017-03-02 12:13] LABS: BASOPHILS # (AUTO) 0.1 K/uL (0.0-8.0); BASOPHILS % (AUTO) 0.6 % (0.0-2.0); EOSINOPHILS % (AUTO) 0.4 % (0.0-7.0); HEMOGLOBIN 13.1 G/DL (12.0-16.0); LYMPHOCYTES # (AUTO) 1.2 K/UL (0.8-4.8); LYMPHOCYTES % (AUTO) 9.9 % (20.5-51.5); MEAN CORPUSCULAR HEMOGLOBIN 28.8 UUG (27.0-31.0); MEAN CORPUSCULAR HGB CONC 33 g/dL (32.0-37.0); MEAN CORPUSCULAR VOLUME 87.6 FL (81.0-99.0); MONOCYTES # (AUTO) 0.8 K/UL (0.1-1.30); MONOCYTES % (AUTO) 6.5 % (0.0-11.0); NEUTROPHILS # (AUTO) 10.2 K/UL (1.8-8.9); NEUTROPHILS % (AUTO) 82.6 % (38.5-71.5); PLATELET COUNT (AUTO) 367 K/UL (150-450); RED BLOOD CELL COUNT(AUTO) 4.57 MIL/UL (4.2-5.4); WHITE BLOOD COUNT (AUTO) 12.3 K/UL (4.0-11.2)
[2017-03-02 12:16] LABS: CREATININE 1.1 mg/dL (0.6-1.3); POTASSIUM 4.1 mmol/L (3.5-5.1)
[2017-03-02 12:22] LABS: BILIRUBIN,TOTAL 0.4 mg/dL (0.2-1.0); MAGNESIUM 1.7 mg/dL (1.8-2.4); PHOSPHOROUS 3.7 mg/dL (2.5-4.9); TOTAL PROTEIN, SERUM 6.9 g/dL (6.4-8.2)
[2017-03-02 12:31] LABS: THYROID STIMULATING HORMONE 2.294 mIU/mL (0.358-3.740)
[2017-03-02 12:38] LABS: BAND % (MANUAL) 4 % (0-10); LYMPHOCYTES % (MANUAL) 13 % (20-40); MONOCYTES % (MANUAL) 7 % (2-10); NEUTROPHILS % (MANUAL) 76 % (42-75)
--- NOTE | 2017-03-02 13:00 | NUR ---
PATIENT SEEN AND EXAMINED BY DR KIM REMAIN ON TELEMETRY MONITORING ORDERED MADE COMFORTABLE AND WILL OBSERVE.
[2017-03-02] MEDS: ACIDOPHILUS/BULGARICUS CHEW TAB PO SCH ×2 (13:26→20:59)
[2017-03-02 15:14] VITALS: BP 102/50
[2017-03-02 17:03] LABS: *BILIRUBIN,URIN NEGATIVE (NEGATIVE); *BLOOD, URINE 1+ (NEGATIVE); *CLARITY,URINE CLEAR (CLEAR); *COLOR,URINE YELLOW (YELLOW); *KETONES,URINE NEGATIVE (NEGATIVE); *PROTEIN,URINE NEGATIVE (NEGATIVE); *UROBILINOGEN,URINE 0.2 E.U./dl (NORMAL); LEUKOCYTE ESTERASE ,URINE NEGATIVE (NEGATIVE); NITRITE, URINE NEGATIVE (NEGATIVE); UGLUCOSE NEGATIVE (NEGATIVE)
[2017-03-02 17:11] LABS: BACTERIA,URINE RARE /HPF (NONE SEEN); SQUAMOUS EPITHELIAL CELL,UR FEW /HPF (NONE SEEN); WBC,URINE 0-3 /HPF (0-3)
[2017-03-02] MEDS ORDERED: RIVAROXABAN 15 MG TABLET PO SCH (18:00)
--- NOTE | 2017-03-02 19:21 | NUR ---
RESTING WITH NO COMPLAINTS AT THIS TIME FAMILY MEMBERS ARE VISITING HER.
[2017-03-02 20:00] VITALS: BP 110/63
[2017-03-02 20:29] VITALS: BP 110/63
[2017-03-02] MEDS ORDERED: ropiniROLE 0.5 MG TABLET PO SCH (21:00)
[2017-03-02] MEDS: ACETAMINOPHEN 325 MG TABLET PO PRN (22:38)
--- NOTE | 2017-03-02 23:50 | NUR ---
RN NOTES: PATIENT HAS UNCONTROLLED HEART RATE RANGES BETWEEN 120'S-140'S. BLOOD PRESSURE IS 128/70 MMHG. PATIENT IS STABLE AND NO COMPLAINS OF PAIN OR RESPIRATORY/CARDIAC DISTRESS NOTED . THE AUTOMOTIVE MACHINIST APPRENTICE IS NOTIFIED AND ORDERED TO SWITCH THE PATIENT'S STATUS TO DINA AND START AMIODARONE PROTOCOL DRIP. CHARGE NURSE IS AWARE. REPORT IS GIVEN TO CHACORTA PASTOR AND NOTIFIED ABOUT THE NEW ORDERS.
[2017-03-03] MEDS ORDERED: AMIODARONE HCL IV 900 MG in IV DEXTROSE 5% 482 ML IV PRN ×2
[2017-03-03] MEDS ORDERED: AMIODARONE HCL IV 150 MG in IV DEXTROSE 5% 100 ML IV ONE ×2
[2017-03-03 00:23] VITALS: BP 113/75
[2017-03-03] MEDS ORDERED: AMIODARONE HCL 150 MG/3 ML VIAL IV ONE (00:33)
--- NOTE | 2017-03-03 00:40 | NUR ---
received report from Cristóbal RN,transfer of care to nina status,patient awake,alert, oriented, no Sob,nausea,no chest pain noted,heart rate 130-140's,Amiodarone 150mg iv bolus admin follow by Amiodarone drip 1 mg/min[33.3 ml/hr]continue closely monitor.
--- NOTE | 2017-03-03 03:00 | NUR ---
patient asleep,heart rate 105's,bp 112/70,no distress.
[2017-03-03 04:00] VITALS: BP 101/59
--- NOTE | 2017-03-03 05:30 | NUR ---
PATIENT CONVERTED TO NSR,RATE 59 BPM,BP 101/59. WAS NOTIFIED,AMIODARONE DRIP DISCONTINUE.PATIENT C/O MILD HEADACHE ,TYLENOL 650 MG PO GIVEN.
[2017-03-03] MEDS: ACETAMINOPHEN 325 MG TABLET PO PRN (05:52)
[2017-03-03] MEDS: ACIDOPHILUS/BULGARICUS CHEW TAB PO SCH ×2 (05:52→13:31)
[2017-03-03] MEDS: LEVOTHYROXINE SODIUM 25 MCG TABLET PO SCH (06:06)
[2017-03-03] MEDS: PANTOPRAZOLE SODIUM 40 MG TABLET.DR PO SCH (06:06)
[2017-03-03] MEDS: BLOOD SUGAR DIAGNOSTIC 1 EACH STRIP VI SCH ×3 (06:06→16:30)
[2017-03-03] MEDS: INSULIN REGULAR, HUMAN 300 UNIT/3 ML VIAL SQ PRN ×2 (07:51→11:51)
[2017-03-03] MEDS: FUROSEMIDE 20 MG TABLET PO SCH (08:54)
[2017-03-03] MEDS: LIPASE/PROTEASE/AMYLASE 4200 UNITS CAPSULE.DR PO SCH ×2 (08:54→12:06)
[2017-03-03] MEDS: DOCUSATE SODIUM 100 MG CAPSULE PO SCH (08:54)
[2017-03-03] MEDS: FLUTICASONE/VILANTEROL 1 EACH BLST.W.DEV INH SCH (08:54)
[2017-03-03] MEDS: predniSONE 10 MG TABLET PO SCH (08:54)
[2017-03-03] MEDS: METFORMIN HCL 500 MG TABLET PO SCH (08:54)
[2017-03-03] MEDS: SERTRALINE HCL 50 MG TABLET PO SCH (08:55)
[2017-03-03] MEDS: FERROUS SULFATE 325 MG TABEC PO SCH (08:55)
[2017-03-03] MEDS: CHOLECALCIFEROL 1,000 UNIT TABLET PO SCH (08:55)
[2017-03-03] MEDS: LIDOCAINE 5% PATCH TD SCH (08:57)
[2017-03-03] MEDS: METOPROLOL TARTRATE 25 MG TABLET PO SCH (09:00)
[2017-03-03] MEDS ORDERED: AMIODARONE HCL 200 MG TABLET PO SCH (09:00)
--- NOTE | 2017-03-03 09:00 | NUR ---
BLOOD PRESSURE IS 110/55 BUT HER HEART RATE IS 58 UNABLE TO GIVE HER THE SCHEDULED AMIODARONE AND METOPROLOL AT THIS TIME.WILL CONTINUE TO MONITOR BLOOD PRESSURE AND HER HEART RATE.PATIENT STATED FEELS GOOD AT THIS TIME.
[2017-03-03] MEDS: NICOTINE 14 MG/24HR PATCH TD SCH (09:04)
[2017-03-03 12:08] VITALS: BP 87/53
[2017-03-03 13:39] VITALS: BP 106/58
--- NOTE | 2017-03-03 15:40 | NUR ---
PATIENT SEEN BY DR KIM WITH ORDER TO DISCHARGE PATIENT HOME TODAY.DR KIM SPOKE WITH PATIENT AND HER FAMILY RE DISCHARGE PLANS PER DR KIM PATIENT HAS HER OWN HOME HEALTH ARRANGED BY HER DAUGHTER GINNY.
[2017-03-03] MEDS ORDERED: AMIO200T6 PO (15:44)
[2017-03-03] MEDS ORDERED: PANT40TA2 PO (15:44)
[2017-03-03] MEDS ORDERED: ACET325T53 PO (15:44)
[2017-03-03] MEDS ORDERED: DOCU-141 PO (15:44)
[2017-03-03] MEDS ORDERED: NITR100C11 PO (16:03)
--- NOTE | 2017-03-03 16:15 | NUR ---
PICC LINE ON HER RIGHT UPPER ARM REMOVED ASEPTICALLY AND OBSERVED INTACT PRESSURE APPLIED FOR A FEW MINUTES AND PRESSURE DRESSING APPLIED NO BLEEDING NOTED PATIENT TOLERATED WELL.
[2017-03-03 16:45] VITALS: BP 101/66
--- NOTE | 2017-03-03 17:00 | NUR ---
PATIENT DISCHARGED PICKED UP BY HER SPOUSE ASHOK IN [employer]ORY [employer] WITH DISCHARGE INSTRUCTIONS AND PRESCRIPTIONS AND PATIENT INSTRUCTED TO CALL FOR A FOLLOW UP APPOINTMENT WITH HER PRIVATE AND DIRECTOR SAFETY COUNCIL AND SHE EXPRESSED UNDERSTANDING.PATIENT DECLINED BEING EDUCATED BY THE PHARMACIST.
--- NOTE | 2017-03-03 17:41 | NUR ---
CALLED PATIENTS DAUGHTER GINNY AND NOTIFIED HER THAT PATIENT DID NOT TAKE HER EYE REFRESH DROPS ITS HER HOME MEDICATION THAT SHE BROUGHT UPON ADMISSION ABOUT 10 AMPOULES LEFT BEHIND AND SHE STATED JUST DISCARD IT.
--- NOTE | 2017-03-03 17:55 | NUR ---
ENCINO PHARMACIST NOTIFIED THAT PATIENT FORGOT TO TAKE HOME HER EYE DROPS THAT SHE BROUGHT UPON ADMISSION AND THAT I HAD CALLED THE PATIENTS DAUGHTER GINNY AND SHE STATED TO DISCARD THEM AND THE PHARMACIST STATED TO PLACE THESE EYE DROP AMPOULES INTO THE PHARMACY RETURN BIN AND THEY WILL PICK THEM UP.
== END 2017-03-03 17:00 | disposition home health service (06) | DRG 308 ==
LOC: TELE 04:21 → TELE-TD 23:56 → TELE 03-03 06:57 → UNDODISIN 03-03 17:00
PROVIDERS: ADMIT Internal Medicine; ATTEND Internal Medicine
DX: I48.0 Paroxysmal atrial fibrillation (principal); E43 Unspecified severe protein-calorie malnutrition; J96.11 Chronic respiratory failure with hypoxia; J84.10 Pulmonary fibrosis, unspecified; I50.32 Chronic diastolic (congestive) heart failure; E11.65 Type 2 diabetes mellitus with hyperglycemia; I11.0 Hypertensive heart disease with heart failure; K86.89 Other specified diseases of pancreas; T86.841 Corneal transplant failure; Z79.01 Long term (current) use of anticoagulants; J44.9 Chronic obstructive pulmonary disease, unspecified; F17.210 Nicotine dependence, cigarettes, uncomplicated; M06.9 Rheumatoid arthritis, unspecified; E66.9 Obesity, unspecified; Z68.34 Body mass index [BMI] 34.0-34.9, adult; G89.29 Other chronic pain; Z79.52 Long term (current) use of systemic steroids; Z87.01 Personal history of pneumonia (recurrent); Z87.440 Personal history of urinary (tract) infections; E78.5 Hyperlipidemia, unspecified; E03.9 Hypothyroidism, unspecified; H54.11 Blindness, right eye, low vision left eye; E61.1 Iron deficiency; K21.9 Gastro-esophageal reflux disease without esophagitis; I25.10 Atherosclerotic heart disease of native coronary artery without angina pectoris; G47.33 Obstructive sleep apnea (adult) (pediatric); M51.16 Intervertebral disc disorders with radiculopathy, lumbar region; Z79.4 Long term (current) use of insulin; Z79.899 Other long term (current) drug therapy; M16.0 Bilateral primary osteoarthritis of hip; F41.8 Other specified anxiety disorders; T38.0X5A Adverse effect of glucocorticoids and synthetic analogues, initial encounter; Y92.009 Unspecified place in unspecified non-institutional (private) residence as the place of occurrence of the external cause
CPT/HCPCS: 36415; 70030-TC; 83735; 84100; 84443; 85025; 87086; J0282; J1815; J7060; J7512

== ENCOUNTER 2017-03-05 14:20 | Inpatient (IN) | payer MEDICARE, MEDICAID ==
[~2017-03-05] VITALS: Ht 162.6 cm; Wt 69.4 kg
[~2017-03-05 14:20] MED LIST changes: -BISA10SU12 RC; -BRIM5DRO2 LEFTEYE; -Blood Sugar Diagnostic VI; -CARI350T PO; -CARI350T27 PO; -CHOL200026 PO; -CLON0.5T4 PO; -DEXT50DI8 IV; +DOCU-141 PO; -DOCU100C36 PO; -FLUT1DIS28 IH; -HYDR-3326 PO; -INSU100V28 SQ; -IPRA0.2S6 NEB; -LEVO25TA2 PO; -LEVO500T2 PO; -LIDO30AD10 TD; -LIPA1CAP27 PO; -MAGN400O6 PO; +NITR100C11 PO; -PRED-170 PO; -SIME80TA45 PO; -ZOLP5TAB8 PO
[2017-03-05] MEDS ORDERED: IV NORMAL SALINE 1000 ML BAG IV ONE (14:45)
--- NOTE | 2017-03-05 15:00 | NUR ---
PT IS RESTING IN BED COMFORTABLY. NO S/S OF ACUTE DISTRESS AT THIS TIME. DR LAMB EVALUATED THE PT.
[2017-03-05 15:12] LABS: BASOPHILS # (AUTO) 0.1 K/uL (0.0-8.0); BASOPHILS % (AUTO) 1.2 % (0.0-2.0); EOSINOPHILS # (AUTO) 0.1 K/uL (0.0-0.7); HEMATOCRIT 42.4 % (37-47); HEMOGLOBIN 13.6 G/DL (12.0-16.0); LYMPHOCYTES # (AUTO) 2.2 K/UL (0.8-4.8); LYMPHOCYTES % (AUTO) 20.3 % (20.5-51.5); MEAN CORPUSCULAR HEMOGLOBIN 28.4 UUG (27.0-31.0); MEAN CORPUSCULAR HGB CONC 32 g/dL (32.0-37.0); MEAN CORPUSCULAR VOLUME 88.2 FL (81.0-99.0); MONOCYTES # (AUTO) 1.1 K/UL (0.1-1.30); MONOCYTES % (AUTO) 9.7 % (0.0-11.0); NEUTROPHILS # (AUTO) 7.5 K/UL (1.8-8.9); NEUTROPHILS % (AUTO) 67.8 % (38.5-71.5); PLATELET COUNT (AUTO) 352 K/UL (150-450)
[2017-03-05 15:14] LABS: CREATININE 1.4 mg/dL (0.6-1.3); POTASSIUM 3.6 mmol/L (3.5-5.1)
[2017-03-05 15:16] LABS: *BILIRUBIN,URIN NEGATIVE (NEGATIVE); *BLOOD, URINE 1+ (NEGATIVE); *CLARITY,URINE CLEAR (CLEAR); *COLOR,URINE YELLOW (YELLOW); *KETONES,URINE NEGATIVE (NEGATIVE); *PROTEIN,URINE NEGATIVE (NEGATIVE); *UROBILINOGEN,URINE 0.2 E.U./dl (NORMAL); LEUKOCYTE ESTERASE ,URINE NEGATIVE (NEGATIVE); NITRITE, URINE NEGATIVE (NEGATIVE); PH,URINE 5.5 (5.0-8.0); UGLUCOSE NEGATIVE (NEGATIVE)
[2017-03-05 15:21] LABS: WBC,URINE 0-3 /HPF (0-3)
[2017-03-05 15:22] LABS: BACTERIA,URINE NONE SEEN /HPF (NONE SEEN)
[2017-03-05 15:23] LABS: SQUAMOUS EPITHELIAL CELL,UR FEW /HPF (NONE SEEN)
[2017-03-05 15:28] LABS: BILIRUBIN,DIRECT 0.1 mg/dL (0.0-0.2); BILIRUBIN,TOTAL 0.4 mg/dL (0.2-1.0); TOTAL PROTEIN, SERUM 7.7 g/dL (6.4-8.2)
[2017-03-05] MEDS ORDERED: CEFTRIAXONE 1 G in IV DEXTROSE 5% 50 ML IV ONE (16:00)
[2017-03-05] MEDS ORDERED: CEFTRIAXONE 1 G VIAL ONE (16:16)
--- NOTE | 2017-03-05 16:17 | NUR ---
pt is in room #2b. dr singh evaluated the pt.
--- NOTE | 2017-03-05 16:18 | NUR ---
report was given to daniel m/s. pt was transfered to m/s room #208.
[2017-03-05 16:40] VITALS: BP 104/53
--- NOTE | 2017-03-05 17:00 | NUR ---
Patient in from ER. aaox4. vitals stable afebrile with no c/o pain. as stated headache and palpitations that resumed on its own with no need of medications. at bedside.
--- NOTE | 2017-03-05 17:25 | NUR ---
Dr. Juliano Rosario called to be notified of new admission. message left with exchange, awaiting call back.
--- NOTE | 2017-03-05 18:28 | NUR ---
2nd call to Dr. smith to notify him of pt's admission and at this time informed that admitting physician will be Dr. Corbett. Dr. Corbett called to be notified of pt's admission. Awaiting call back.
--- NOTE | 2017-03-05 18:56 | NUR ---
A call to dr. Henao this time done by supercharge repair supervisor. as instructed by Dr. Corbett to call Dr. Henao for admission orders. Awaiting call back.
[2017-03-05] MEDS ORDERED: ZOLPIDEM 5 MG TABLET PO PRN (19:30)
[2017-03-05] MEDS ORDERED: MAGNESIUM HYDROXIDE 30 ML LIQUID UDC PO PRN (19:30)
[2017-03-05] MEDS ORDERED: Z GUARD REMEDY PASTE 57 GM TUBE TOP PRN (19:30)
[2017-03-05] MEDS ORDERED: ONDANSETRON 4 MG/2 ML VIAL IV PRN (19:30)
--- NOTE | 2017-03-05 19:35 | NUR ---
PT RECEIVED IN BED, AWAKE. DAUGHTER AT BEDSIDE. PT V/S STABLE. NO ACUTE DISTRESS NOTED. PT DOES NOT COMPLAIN OF PAIN AT THIS TIME. AWAITING ADMITTING ORDERS. PT ORIENTED TO ROOM. SAFETY MEASURE IMPLEMENTED. CALL LIGHT WITHIN REACH.
--- NOTE | 2017-03-05 20:00 | NUR ---
PT CONCERNED ABOUT BS. DOMINGUEZ DONE, PT BS 157. PT STATES, " I TAKE INSULIN AT NIGHT AND GLUCOPHAGE IN THE MORNING." WILL NOTIFY
[2017-03-05 20:29] VITALS: BP 108/54
--- NOTE | 2017-03-05 21:14 | NUR ---
Clinical pharmacy note:Vancomycin dosing per pharmacy Subjective: To start Vancomycin dosing on this patient for fever(no MD note yet) Objective: BUN 28 Scr 1.4 WBC 11.0 Temp 98.6 Assessment/Plan: Will start Vancomycin 1gram IV every 28hrs (first dose tonight at 2230) and draw trough by 4th dose(not ordered yet) for expected trough around 15. Will monitor renal function closely to adjust the dose if needed. Will follow daily.
[2017-03-05] MEDS: ropiniROLE 0.5 MG TABLET PO SCH (21:31)
[2017-03-05] MEDS: ACETAMINOPHEN 325 MG TABLET PO PRN (21:32)
[2017-03-05] MEDS: DOCUSATE SODIUM 100 MG CAPSULE PO SCH (21:33)
[2017-03-05] MEDS: METOPROLOL TARTRATE 25 MG TABLET PO SCH (21:33)
[2017-03-05] MEDS: PIPERACILLIN SODIUM/TAZOBACTAM 4.5 G in IV DEXTROSE 5% 50 ML IV SCH (21:35)
[2017-03-05] MEDS ORDERED: VANCOMYCIN IV 1 G in PREMIXED 0 EACH IV SCH (22:30)
[2017-03-06 04:00] VITALS: BP 95/47
[2017-03-06] MEDS: PIPERACILLIN SODIUM/TAZOBACTAM 4.5 G in IV DEXTROSE 5% 50 ML IV SCH ×3 (06:02→22:23)
[2017-03-06] MEDS: PANTOPRAZOLE SODIUM 40 MG TABLET.DR PO SCH (06:02)
[2017-03-06] MEDS: LEVOTHYROXINE SODIUM 25 MCG TABLET PO SCH (06:02)
[2017-03-06 06:39] LABS: BASOPHILS # (AUTO) 0.1 K/uL (0.0-8.0); BASOPHILS % (AUTO) 0.8 % (0.0-2.0); EOSINOPHILS # (AUTO) 0.1 K/uL (0.0-0.7); EOSINOPHILS % (AUTO) 1.4 % (0.0-7.0); HEMATOCRIT 38.5 % (37-47); HEMOGLOBIN 12.3 G/DL (12.0-16.0); LYMPHOCYTES # (AUTO) 1.7 K/UL (0.8-4.8); LYMPHOCYTES % (AUTO) 18.5 % (20.5-51.5); MEAN CORPUSCULAR HEMOGLOBIN 28.6 UUG (27.0-31.0); MEAN CORPUSCULAR HGB CONC 32 g/dL (32.0-37.0); MEAN CORPUSCULAR VOLUME 89.1 FL (81.0-99.0); MONOCYTES # (AUTO) 0.9 K/UL (0.1-1.30); MONOCYTES % (AUTO) 9.7 % (0.0-11.0); NEUTROPHILS # (AUTO) 6.5 K/UL (1.8-8.9); NEUTROPHILS % (AUTO) 69.6 % (38.5-71.5); PLATELET COUNT (AUTO) 331 K/UL (150-450); RED BLOOD CELL COUNT(AUTO) 4.32 MIL/UL (4.2-5.4); WHITE BLOOD COUNT (AUTO) 9.3 K/UL (4.0-11.2)
--- NOTE | 2017-03-06 06:59 | NUR ---
END OF SHIFT NOTES. PT IN STABLE CONDITION. IN NO ACUTE DISTRESS THROUGHOUT SHIFT. NEEDS ATTENDED. IVF INFUSING. IV ANTIBIOTICS ADMINISTERED. SAFETY MAINTAINED.
[2017-03-06] MEDS ORDERED: PANTOPRAZOLE SODIUM 40 MG TABLET.DR PO SCH (07:00)
[2017-03-06 07:01] LABS: MAGNESIUM 1.5 mg/dL (1.8-2.4); PHOSPHOROUS 3.3 mg/dL (2.5-4.9); POTASSIUM 3.1 mmol/L (3.5-5.1)
[2017-03-06] MEDS: METOPROLOL TARTRATE 25 MG TABLET PO SCH ×2 (08:53→20:20)
[2017-03-06] MEDS: METFORMIN HCL 500 MG TABLET PO SCH ×2 (08:53→17:02)
[2017-03-06] MEDS: FERROUS SULFATE 325 MG TABEC PO SCH (08:54)
[2017-03-06] MEDS: AMIODARONE HCL 200 MG TABLET PO SCH (08:54)
[2017-03-06] MEDS ORDERED: SERTRALINE HCL 50 MG TABLET PO SCH (09:00)
[2017-03-06] MEDS: NICOTINE 14 MG/24HR PATCH TD SCH (11:42)
[2017-03-06 12:02] VITALS: BP 108/58
[2017-03-06] MEDS ORDERED: MAGNESIUM SULFATE/D5W 100 ML IV SCH (13:00)
[2017-03-06] MEDS ORDERED: POTASSIUM CHLORIDE 20 MEQ TAB.PRT.SR PO ONE (13:00)
[2017-03-06] MEDS ORDERED: MAGNESIUM OXIDE 400 MG TABLET PO ONE (13:30)
--- NOTE | 2017-03-06 14:41 | NUR ---
Clinical pharmacy note:Vancomycin dosing per pharmacy Subjective: To continue Vancomycin dosing on this patient for fever(no MD note yet) Objective: BUN 16 Scr 1.0 WBC 9.3 Temp 98.5 Assessment/Plan: Since Scr improved, rescheduled regimen to 1gm q22hrs for expected trough of 14.99, second dose now due tonight at 2030. Will order trough before 4th scheduled dose (not ordered yet). Will monitor renal function closely to adjust the dose if needed. Will follow daily.
[2017-03-06] MEDS: IV NS 1000 ML 1,000 ML IV PRN (15:43)
[2017-03-06 16:04] VITALS: BP 105/53
[2017-03-06] MEDS: RIVAROXABAN 15 MG TABLET PO SCH (17:02)
--- NOTE | 2017-03-06 18:10 | NUR ---
pt sitting in chair, no acute distress. HL IV left hand removed with no redness or irritation noted. IV in left upper arm intact and patent, infusing 100ml/hr of NS. all safety and comfort measures maintained throughout shift, call light in reach, family at bedside. spoke with daughter on the phone earlier and updated on pt condition
[2017-03-06 19:00] VITALS: BP 96/58
--- NOTE | 2017-03-06 19:30 | NUR ---
PT RECEIVED IN BED, AWAKE. FAMILY AT BEDSIDE. PT IN NO ACUTE DISTRESS. V/S STABLE. NO COMPLAINTS OF PAIN AT THIS TIME. IVF INFUSING. DISCUSSED PLAN OF CARE FOR INJECTION MOLDING MACHINE SETTER. SAFETY MEASURES IMPLEMENTED. CALL LIGHT WITHIN REACH.
[2017-03-06] MEDS: ropiniROLE 0.5 MG TABLET PO SCH (20:20)
[2017-03-06] MEDS: DOCUSATE SODIUM 100 MG CAPSULE PO SCH (20:20)
[2017-03-06] MEDS: ACETAMINOPHEN 325 MG TABLET PO PRN (20:20)
[2017-03-06] MEDS ORDERED: VANCOMYCIN IV 1 G in PREMIXED 0 EACH IV SCH (20:30)
--- NOTE | 2017-03-06 20:34 | NUR ---
ADMINISTERED TYLENOL 650MG TO PT. PT HAS A LOW GRADE FEVER 99.7F
[2017-03-06] MEDS: HYDROCODONE/APAP 5-325MG TABLET PO PRN (22:25)
[2017-03-07 04:00] VITALS: BP 126/54
[2017-03-07] MEDS: LEVOTHYROXINE SODIUM 25 MCG TABLET PO SCH (06:08)
[2017-03-07] MEDS: PIPERACILLIN SODIUM/TAZOBACTAM 4.5 G in IV DEXTROSE 5% 50 ML IV SCH ×2 (06:08→14:00)
[2017-03-07] MEDS: PANTOPRAZOLE SODIUM 40 MG TABLET.DR PO SCH (06:08)
[2017-03-07] MEDS: IV NS 1000 ML 1,000 ML IV PRN (06:08)
[2017-03-07] MEDS: ACETAMINOPHEN 325 MG TABLET PO PRN (06:18)
[2017-03-07 06:25] LABS: BASOPHILS # (AUTO) 0.1 K/uL (0.0-8.0); BASOPHILS % (AUTO) 0.8 % (0.0-2.0); EOSINOPHILS # (AUTO) 0.3 K/uL (0.0-0.7); EOSINOPHILS % (AUTO) 3.3 % (0.0-7.0); HEMATOCRIT 36.6 % (37-47); LYMPHOCYTES # (AUTO) 2.5 K/UL (0.8-4.8); LYMPHOCYTES % (AUTO) 27.7 % (20.5-51.5); MEAN CORPUSCULAR HEMOGLOBIN 29.3 UUG (27.0-31.0); MEAN CORPUSCULAR HGB CONC 33 g/dL (32.0-37.0); MEAN CORPUSCULAR VOLUME 89.7 FL (81.0-99.0); MONOCYTES # (AUTO) 1.1 K/UL (0.1-1.30); MONOCYTES % (AUTO) 12.3 % (0.0-11.0); NEUTROPHILS % (AUTO) 55.9 % (38.5-71.5); PLATELET COUNT (AUTO) 274 K/UL (150-450); RED BLOOD CELL COUNT(AUTO) 4.08 MIL/UL (4.2-5.4)
--- NOTE | 2017-03-07 06:33 | NUR ---
END OF SHIFT NOTES. PT SLEPT INTERMITTENTLY THROUGHOUT SHIFT. PT IN STABLE CONDITION. PT STATES, "I HAVE A VERY BAD HEADACHE, BUT I HAVE HEADACHE EVERY DAY." TYLENOL PROVIDED ORDERED. IVF INFUSING. IV ANTIBIOTICS ADMINISTERED. NEEDS ATTENDED. SAFETY MAINTAINED.
[2017-03-07 06:34] LABS: MAGNESIUM 1.5 mg/dL (1.8-2.4); POTASSIUM 3.9 mmol/L (3.5-5.1)
[2017-03-07 06:44] LABS: EOSINOPHILS % (MANUAL) 2 % (0-8); LYMPHOCYTES % (MANUAL) 23 % (20-40); MONOCYTES % (MANUAL) 10 % (2-10); NEUTROPHILS % (MANUAL) 65 % (42-75)
--- NOTE | 2017-03-07 08:00 | NUR ---
Awake, alert, oriented x 4. IVF infusing.
[2017-03-07] MEDS: FERROUS SULFATE 325 MG TABEC PO SCH (08:52)
[2017-03-07] MEDS: METFORMIN HCL 500 MG TABLET PO SCH ×2 (08:52→17:18)
[2017-03-07] MEDS: FUROSEMIDE 20 MG TABLET PO SCH (08:52)
[2017-03-07] MEDS: AMIODARONE HCL 200 MG TABLET PO SCH (08:52)
[2017-03-07] MEDS: NICOTINE 14 MG/24HR PATCH TD SCH (08:53)
[2017-03-07] MEDS: METOPROLOL TARTRATE 25 MG TABLET PO SCH ×2 (08:53→20:31)
[2017-03-07] MEDS: SERTRALINE HCL 50 MG TABLET PO SCH (08:53)
[2017-03-07] MEDS: HYDROCODONE/APAP 5-325MG TABLET PO PRN ×2 (08:57→22:36)
[2017-03-07 11:03] VITALS: BP 118/80
--- NOTE | 2017-03-07 14:30 | NUR ---
Mg 1.5, Magnesium IV given as ordered
[2017-03-07 15:05] VITALS: BP 116/57
[2017-03-07] MEDS: MAGNESIUM SULFATE/D5W 100 ML IV SCH ×2 (15:05→16:30)
--- NOTE | 2017-03-07 15:18 | NUR ---
Clinical pharmacy note:Vancomycin dosing per pharmacy Subjective: To continue Vancomycin dosing on this patient for fever(no MD note yet) Objective: BUN 8 Scr 1.0 WBC 9. Temp 98 Assessment/Plan: Since Scr is stable, will continue regimen of 1gm q22hrs for expected trough of 14.99, Will order trough before 4th scheduled dose (ordered for tomorrow at 1600). Will monitor renal function closely to adjust the dose if needed. Will follow daily.
[2017-03-07] MEDS: RIVAROXABAN 15 MG TABLET PO SCH (17:19)
--- NOTE | 2017-03-07 18:09 | NUR ---
Afebrile. IVF infusing. Headache relieved. Kept comfortable
--- NOTE | 2017-03-07 19:00 | NUR ---
RECEIVED PATIENT IN BED ALERT ORIENTED, NO SOB NO CHEST PAIN , NO COMPLAIN OF PAIN AT THIS TIME, FAMILY AT BEDSIDE, CONT TO MONITOR, ON PAIN MANAGEMENT.
[2017-03-07 20:00] VITALS: BP 140/59
[2017-03-07] MEDS: DOCUSATE SODIUM 100 MG CAPSULE PO SCH (20:30)
[2017-03-07] MEDS: ropiniROLE 0.5 MG TABLET PO SCH (20:30)
[2017-03-08 05:22] VITALS: BP 119/66
[2017-03-08] MEDS: LEVOTHYROXINE SODIUM 25 MCG TABLET PO SCH (06:26)
[2017-03-08] MEDS: PANTOPRAZOLE SODIUM 40 MG TABLET.DR PO SCH (06:26)
[2017-03-08 06:43] LABS: MAGNESIUM 1.8 mg/dL (1.8-2.4); POTASSIUM 3.4 mmol/L (3.5-5.1)
--- NOTE | 2017-03-08 07:20 | NUR ---
RECEIVED REPORT FROM SHIRT IRONER, PATIENT IN BED SLEEPING, BED IN LOW POSITION, SIDE RAILS UPX2.
[2017-03-08] MEDS: NICOTINE 14 MG/24HR PATCH TD SCH (08:48)
[2017-03-08] MEDS: AMIODARONE HCL 200 MG TABLET PO SCH (08:48)
[2017-03-08] MEDS: HYDROCODONE/APAP 5-325MG TABLET PO PRN (08:48)
[2017-03-08] MEDS: FERROUS SULFATE 325 MG TABEC PO SCH (08:49)
[2017-03-08] MEDS: FUROSEMIDE 20 MG TABLET PO SCH (08:49)
[2017-03-08] MEDS: METOPROLOL TARTRATE 25 MG TABLET PO SCH (08:49)
[2017-03-08] MEDS: SERTRALINE HCL 50 MG TABLET PO SCH (08:49)
[2017-03-08] MEDS: METFORMIN HCL 500 MG TABLET PO SCH (08:49)
[2017-03-08 11:19] VITALS: BP 102/68
[2017-03-08] MEDS ORDERED: POTASSIUM CHLORIDE 20 MEQ TAB.PRT.SR PO ONE (14:15)
--- NOTE | 2017-03-08 14:44 | NUR ---
PATIENT HAS BEEN SLEEPING INTERMITTENTLY THROUGHOUT THE DAY. NO EVIDENCE OF DISTRESS NOTED, NO FEVER. PATIENT'S DISCHARGE PAPERWORK HAS BEEN PROCESSED AND PATIENT IS BEING TAKEN OUT BY WHEELCHAIR TO MEET FAMILY AT FRONT ENTRANCE.
--- NOTE | 2017-03-08 16:18 | NUR ---
Discharge Plan: Once the patient is medically cleared the patient will be discharged back home [[address] [place] [address]]. Patient's daughter [Hue [phone]] is the patient's caregiver. Ivis ARANA, spoke with the daughter and informed her of the patient discharge plans. Hue will crop picker the patient via private car.
== END 2017-03-08 14:45 | disposition home or self-care (01) | DRG 690 ==
LOC: ER 14:20 → MED 16:14
PROVIDERS: ADMIT Internal Medicine
DX: N39.0 Urinary tract infection, site not specified (principal); T86.841 Corneal transplant failure; I50.32 Chronic diastolic (congestive) heart failure; Z79.899 Other long term (current) drug therapy; F17.210 Nicotine dependence, cigarettes, uncomplicated; H54.41 Blindness, right eye, normal vision left eye; M06.9 Rheumatoid arthritis, unspecified; K21.9 Gastro-esophageal reflux disease without esophagitis; F32.9 Major depressive disorder, single episode, unspecified; G47.33 Obstructive sleep apnea (adult) (pediatric); E66.9 Obesity, unspecified; Z68.26 Body mass index [BMI] 26.0-26.9, adult; Z79.52 Long term (current) use of systemic steroids; Z79.4 Long term (current) use of insulin; Z87.440 Personal history of urinary (tract) infections; R33.9 Retention of urine, unspecified; K59.09 Other constipation; I48.0 Paroxysmal atrial fibrillation; I11.0 Hypertensive heart disease with heart failure; E78.5 Hyperlipidemia, unspecified; E11.9 Type 2 diabetes mellitus without complications; J44.9 Chronic obstructive pulmonary disease, unspecified; G89.29 Other chronic pain; M54.5 Low back pain; D50.9 Iron deficiency anemia, unspecified; I25.10 Atherosclerotic heart disease of native coronary artery without angina pectoris; Z79.01 Long term (current) use of anticoagulants
CPT/HCPCS: 36415; 70030-TC; 71010; 83605; 83735; 84100; 85025; 85730; 87040; 87086; 93005; 97161; A4663; J0696; J2543; J3370; J3475; J3490; J7030; J7060

== ENCOUNTER 2020-05-31 09:06 | Inpatient (IN) | payer MEDICARE, OTHER ==
[~2020-05-31] VITALS: Ht 152.4 cm; Wt 63.5 kg
[~2020-05-31 09:06] MED LIST changes: +METF-440 PO; -METF500T4 PO; +NICO-671 TD; -NICO1PAT25 TD; -NITR100C11 PO; -PRED10TA PO
[2020-05-31 09:37] LABS: EOSINOPHILS # (AUTO) 0.2 K/uL (0.0-0.7)
[2020-05-31 09:39] LABS: BASOPHILS # (AUTO) 0.1 K/uL (0.0-8.0); BASOPHILS % (AUTO) 1.5 % (0.0-2.0); EOSINOPHILS % (AUTO) 3.1 % (0.0-7.0); LYMPHOCYTES # (AUTO) 1.4 K/uL (20.0-40.0); LYMPHOCYTES % (AUTO) 18.4 % (20.5-51.5); MEAN CORPUSCULAR HGB CONC 30 g/dL (32.3-35.6); MEAN CORPUSCULAR VOLUME 69.2 fL (75.5-95.3); MONOCYTES # (AUTO) 0.8 K/uL (2.0-10.0); MONOCYTES % (AUTO) 9.9 % (0.0-11.0); NEUTROPHILS # (AUTO) 5.2 K/uL (1.8-8.9); NEUTROPHILS % (AUTO) 67.1 % (38.5-71.5); PLATELET COUNT (AUTO) 625 K/uL (179-408); RED BLOOD CELL COUNT(AUTO) 3.04 MIL/uL (3.63-4.92); WHITE BLOOD COUNT (AUTO) 7.7 K/uL (3.8-11.8)
[2020-05-31] MEDS ORDERED: DULO60CA45 PO (09:40)
[2020-05-31] MEDS ORDERED: OMEG-130 PO (09:40)
[2020-05-31] MEDS ORDERED: HYDR-4354 PO (09:40)
[2020-05-31] MEDS ORDERED: [UNRECOGNIZED DRUG - OTHER] LEFTEYE (09:40)
[2020-05-31] MEDS ORDERED: LINA145C PO (09:40)
[2020-05-31] MEDS ORDERED: MEMA10TA PO (09:40)
[2020-05-31] MEDS ORDERED: TOBR5DRO2 RIGHTEYE (09:40)
[2020-05-31] MEDS ORDERED: SODI15DR5 LEFTEYE (09:40)
[2020-05-31] MEDS ORDERED: METO25TA6 PO (09:40)
[2020-05-31] MEDS ORDERED: POTA10CA43 PO (09:40)
[2020-05-31] MEDS ORDERED: OLOP2.5D12 RIGHTEYE (09:40)
[2020-05-31] MEDS ORDERED: OLME1TAB19 PO (09:40)
[2020-05-31] MEDS ORDERED: FAMO40TA7 PO (09:40)
[2020-05-31] MEDS ORDERED: NITR50CA PO (09:40)
[2020-05-31] MEDS ORDERED: PRED5DRO16 LEFTEYE (09:40)
[2020-05-31 09:44] LABS: CREATININE 1.1 mg/dL (0.6-1.3)
[2020-05-31 09:49] LABS: BILIRUBIN,DIRECT 0.1 mg/dL (0.0-0.2); BILIRUBIN,TOTAL 0.2 mg/dL (0.2-1.0); TOTAL PROTEIN, SERUM 7.8 g/dL (6.4-8.2)
[2020-05-31 09:50] LABS: HEMOGLOBIN 6.4 g/dL (10.9-14.3)
[2020-05-31 11:32] LABS: *BILIRUBIN,URIN NEGATIVE (NEGATIVE); *BLOOD, URINE NEGATIVE (NEGATIVE); *CLARITY,URINE SLIGHTLY CLOUDY (CLEAR); *COLOR,URINE YELLOW (YELLOW); *KETONES,URINE NEGATIVE (NEGATIVE); *UROBILINOGEN,URINE 0.2 E.U./dl (NORMAL); LEUKOCYTE ESTERASE ,URINE NEGATIVE (NEGATIVE); NITRITE, URINE NEGATIVE (NEGATIVE); UGLUCOSE NEGATIVE (NEGATIVE)
[2020-05-31] MEDS ORDERED: SWABABLE VALVE TRANSFER SET EA MC ONE (12:38)
[2020-05-31] MEDS ORDERED: IV NORMAL SALINE 250 ML IV ONE (12:38)
[2020-05-31] MEDS ORDERED: IOHEXOL 300MG/ML 100 ML INFUS..BTL ONE (12:38)
[2020-05-31 14:07] LABS: IRON, SERUM 10 ug/dL (50-175)
[2020-05-31 15:04] LABS: BACTERIA,URINE FEW /HPF (NONE SEEN); RBC,URINE 0-3 /HPF (0-3); SQUAMOUS EPITHELIAL CELL,UR FEW /HPF (NONE SEEN); WBC,URINE 0-3 /HPF (0-3)
[2020-05-31 15:43] LABS: NEUTROPHILS % (MANUAL) 73 % (42-75)
[2020-05-31 15:44] LABS: BAND % (MANUAL) 1 % (0-10); EOSINOPHILS % (MANUAL) 1 % (0-8); LYMPHOCYTES % (MANUAL) 20 % (20-40); MONOCYTES % (MANUAL) 5 % (2-10)
[2020-05-31] MEDS ORDERED: INSULIN REGULAR, HUMAN 300 UNIT/3 ML VIAL SQ PRN (16:30)
[2020-05-31] MEDS ORDERED: DEXTROSE 50% 50 ML DISP.SYRIN IV PRN (16:30)
[2020-05-31] MEDS ORDERED: TEMAZEPAM 15 MG CAPSULE PO PRN (20:00)
[2020-05-31] MEDS ORDERED: ACETAMINOPHEN 325 MG TABLET PO PRN (20:00)
[2020-05-31] MEDS ORDERED: ONDANSETRON 4 MG/2 ML VIAL IV PRN (20:00)
[2020-05-31 20:31] VITALS: BP 118/77
[2020-05-31] MEDS ORDERED: DOCUSATE SODIUM 100 MG CAPSULE PO SCH (21:00)
[2020-05-31] MEDS: BLOOD SUGAR DIAGNOSTIC 1 EACH STRIP VI SCH (21:50)
[2020-06-01 00:52] VITALS: BP 122/60
[2020-06-01 04:51] VITALS: BP 128/66
[2020-06-01] MEDS ORDERED: PANTOPRAZOLE SODIUM 40 MG TABLET.DR PO SCH (07:00)
[2020-06-01] MEDS: BLOOD SUGAR DIAGNOSTIC 1 EACH STRIP VI SCH (07:14)
[2020-06-01 07:47] LABS: BASOPHILS # (AUTO) 0.1 K/uL (0.0-8.0); BASOPHILS % (AUTO) 1.5 % (0.0-2.0); EOSINOPHILS # (AUTO) 0.2 K/uL (0.0-0.7); HEMOGLOBIN 7.9 g/dL (10.9-14.3); LYMPHOCYTES # (AUTO) 1.3 K/uL (20.0-40.0); LYMPHOCYTES % (AUTO) 16.1 % (20.5-51.5); MEAN CORPUSCULAR HEMOGLOBIN 22.8 uug (24.7-32.8); MEAN CORPUSCULAR HGB CONC 32 g/dL (32.3-35.6); MEAN CORPUSCULAR VOLUME 72.4 fL (75.5-95.3); MONOCYTES # (AUTO) 1.1 K/uL (2.0-10.0); MONOCYTES % (AUTO) 13.3 % (0.0-11.0); NEUTROPHILS # (AUTO) 5.2 K/uL (1.8-8.9); NEUTROPHILS % (AUTO) 66.1 % (38.5-71.5); PLATELET COUNT (AUTO) 664 K/uL (179-408); RED BLOOD CELL COUNT(AUTO) 3.45 MIL/uL (3.63-4.92); WHITE BLOOD COUNT (AUTO) 7.9 K/uL (3.8-11.8)
[2020-06-01 07:52] LABS: BILIRUBIN,TOTAL 0.3 mg/dL (0.2-1.0); PHOSPHOROUS 5.2 mg/dL (2.5-4.9); POTASSIUM 3.8 mmol/L (3.5-5.1)
[2020-06-01 07:53] LABS: THYROID STIMULATING HORMONE 1.048 mIU/mL (0.358-3.740)
[2020-06-01] MEDS ORDERED: METFORMIN HCL 500 MG TABLET PO SCH (08:00)
[2020-06-01] MEDS ORDERED: MEMANTINE HCL 10 MG TABLET PO SCH (09:00)
[2020-06-01] MEDS ORDERED: OMEGA-3 FATTY ACIDS/FISH OIL CAPSULE PO SCH (09:00)
[2020-06-01] MEDS ORDERED: FERROUS SULFATE 325 MG TABEC PO SCH (09:00)
[2020-06-01] MEDS ORDERED: LEVOTHYROXINE SODIUM 25 MCG TABLET PO SCH (09:00)
[2020-06-01] MEDS ORDERED: DULOXETINE 60 MG CAPSULE.DR PO SCH (09:00)
[2020-06-01] MEDS ORDERED: FLUTICASONE/VILANTEROL 1 EACH BLST.W.DEV INH SCH ×2 (09:00→10:30)
[2020-06-01] MEDS ORDERED: METOPROLOL TARTRATE 25 MG TABLET PO SCH (09:00)
[2020-06-01] MEDS ORDERED: POTASSIUM CHLORIDE 8 MEQ TAB.PRT.SR PO SCH (09:00)
[2020-06-01] MEDS ORDERED: CHOLECALCIFEROL 1,000 UNIT TABLET PO SCH (09:00)
[2020-06-01] MEDS ORDERED: IPRATROPIUM/ALBUTEROL SULFATE 14.7 GM INHALER INH PRN (10:30)
[2020-06-01 12:00] VITALS: BP 128/57
[2020-06-01 12:43] LABS: EOSINOPHILS % (MANUAL) 6 % (0-8); LYMPHOCYTES % (MANUAL) 11 % (20-40); MONOCYTES % (MANUAL) 10 % (2-10); NEUTROPHILS % (MANUAL) 73 % (42-75)
[2020-06-01] MEDS ORDERED: SOD FERRIC GLUC COMPLX/SUCROSE 125 MG in IV NORMAL SALINE 100 ML IV SCH (14:00)
[2020-06-01] MEDS ORDERED: ATOR10TA PO (14:49)
[2020-06-01] MEDS ORDERED: INFLUENZA VACCINE 2020-2021 0.5 ML DISP.SYRIN IM ONE (15:15)
[2020-06-01 15:52] VITALS: BP 137/70
[2020-06-01] MEDS ORDERED: RIVAROXABAN 15 MG TABLET PO SCH (17:00)
[2020-06-01] MEDS ORDERED: ATORVASTATIN 10 MG TABLET PO SCH (21:00)
[2020-06-03] MEDS ORDERED: METFORMIN HCL 500 MG TABLET PO SCH (08:00)
== END 2020-06-01 16:00 | disposition home or self-care (01) | DRG 378 ==
LOC: ER 09:06 → TELE3 18:34
PROVIDERS: ADMIT Internal Medicine; ATTEND Internal Medicine
PROC: 30233N1 Transfusion of Nonautologous Red Blood Cells into Peripheral Vein, Percutaneous Approach (ICD-10-PCS; principal; 2020-05-31)
DX: K57.91 Diverticulosis of intestine, part unspecified, without perforation or abscess with bleeding (principal); I50.32 Chronic diastolic (congestive) heart failure; D62 Acute posthemorrhagic anemia; D50.9 Iron deficiency anemia, unspecified; R07.9 Chest pain, unspecified; E03.9 Hypothyroidism, unspecified; E11.9 Type 2 diabetes mellitus without complications; E27.8 Other specified disorders of adrenal gland; E78.5 Hyperlipidemia, unspecified; G89.29 Other chronic pain; H54.61 Unqualified visual loss, right eye, normal vision left eye; I11.0 Hypertensive heart disease with heart failure; I48.0 Paroxysmal atrial fibrillation; I25.10 Atherosclerotic heart disease of native coronary artery without angina pectoris; J44.9 Chronic obstructive pulmonary disease, unspecified; K21.9 Gastro-esophageal reflux disease without esophagitis; M06.9 Rheumatoid arthritis, unspecified; Z79.4 Long term (current) use of insulin; Z87.440 Personal history of urinary (tract) infections; R53.1 Weakness; M19.90 Unspecified osteoarthritis, unspecified site; Z87.01 Personal history of pneumonia (recurrent); Z87.891 Personal history of nicotine dependence; M54.10 Radiculopathy, site unspecified; Z79.01 Long term (current) use of anticoagulants; R19.5 Other fecal abnormalities
CPT/HCPCS: 36415; 70030-TC; 71045; 71260; 82378; 83550; 83735; 84100; 84443; 85025; 85730; 86850; 86900; 86901; 86920; 90686; 93005; A4663; G0378; J1815; J2916; J3490; J7050; P9016-BL; P9021; Q9967; U0003

== ENCOUNTER 2021-02-09 06:11 | Inpatient (IN) | payer MEDICARE, OTHER ==
[~2021-02-09] VITALS: Ht 152.4 cm; Wt 64.9 kg
[~2021-02-09 06:11] MED LIST changes: -ACET325T53 PO; -ACID1TAB4 PO; -AMIO200T6 PO; +ATOR10TA PO; +DULO60CA45 PO; +FAMO40TA7 PO; -FURO20TA4 PO; +HYDR-4354 PO; +LINA145C PO; +MEMA10TA PO; -NICO-671 TD; +NITR50CA PO; +OLME1TAB19 PO; +OLOP2.5D12 RIGHTEYE; +OMEG-130 PO; -PANT40TA2 PO; +POTA10CA43 PO; +PRED5DRO16 LEFTEYE; -ROPI0.5T PO; -SERT50TA12 PO; +SODI15DR5 LEFTEYE; +TOBR5DRO2 RIGHTEYE; +[UNRECOGNIZED DRUG - OTHER] LEFTEYE
[2021-02-09] MEDS ORDERED: IV NORMAL SALINE 1000 ML BAG IV ONE ×2 (07:00→08:30)
[2021-02-09] MEDS ORDERED: DONE10TA44 PO (07:11)
[2021-02-09] MEDS ORDERED: FEBU40TA PO (07:11)
[2021-02-09] MEDS ORDERED: OLME1TAB19 PO (07:11)
[2021-02-09] MEDS ORDERED: [UNRECOGNIZED DRUG - OTHER] (07:11)
[2021-02-09] MEDS ORDERED: [UNRECOGNIZED DRUG - SUPPLY] RIGHTEYE (07:14)
[2021-02-09 07:22] LABS: MEAN CORPUSCULAR HEMOGLOBIN 23.6 uug (24.7-32.8); MEAN CORPUSCULAR VOLUME 77.6 fL (75.5-95.3); PLATELET COUNT (AUTO) 512 K/uL (179-408)
[2021-02-09 08:01] LABS: CARBON DIOXIDE 22 mmol/L (21-32); CHLORIDE 102 mmol/L (98-107); CREATININE 1.6 mg/dL (0.6-1.3); GLUCOSE 162 mg/dL (74-106); POTASSIUM 3.8 mmol/L (3.5-5.1); UREA NITROGEN, BLOOD 28 mg/dL (7-18)
[2021-02-09 08:12] LABS: ALANINE AMINOTRANSFERASE 14 U/L (14-59); ALKALINE PHOSPHATASE 59 U/L (50-136); ASPARTATE AMINOTRANSFERASE 11 U/L (15-37); BILIRUBIN,DIRECT 0.1 mg/dL (0.0-0.2); BILIRUBIN,TOTAL 0.3 mg/dL (0.2-1.0); TOTAL PROTEIN, SERUM 7.6 g/dL (6.4-8.2)
[2021-02-09] MEDS ORDERED: CEFTRIAXONE 1 G in IV DEXTROSE 5% 50 ML IV ONE (08:15)
[2021-02-09] MEDS ORDERED: CEFTRIAXONE /D5W 50ML IVPB **ER PYXIS IV ONE (08:27)
[2021-02-09] MEDS ORDERED: HYDROMORPHONE 1 MG/1 ML DISP.SYRIN IV ONE (08:45)
[2021-02-09] MEDS ORDERED: ONDANSETRON 4 MG/2 ML VIAL IV ONE (08:45)
[2021-02-09 08:56] LABS: LIPASE 126 U/L (73-393)
[2021-02-09 08:56] LABS: *BILIRUBIN,URIN NEGATIVE (NEGATIVE); *BLOOD, URINE NEGATIVE (NEGATIVE); *CLARITY,URINE SLIGHTLY CLOUDY (CLEAR); *COLOR,URINE YELLOW (YELLOW); *KETONES,URINE NEGATIVE (NEGATIVE); *UROBILINOGEN,URINE 0.2 E.U./dl (NORMAL); LEUKOCYTE ESTERASE ,URINE NEGATIVE (NEGATIVE); NITRITE, URINE NEGATIVE (NEGATIVE); UGLUCOSE NEGATIVE (NEGATIVE)
[2021-02-09] MEDS ORDERED: HYDROMORPHONE 1 MG/1 ML DISP.SYRIN ONE (09:03)
[2021-02-09] MEDS ORDERED: ONDANSETRON 4 MG/2 ML VIAL ONE (09:03)
[2021-02-09 11:00] VITALS: BP 132/72
[2021-02-09] MEDS ORDERED: MORPHINE SULFATE 2 MG/1 ML DISP.SYRIN IV PRN (11:15)
[2021-02-09] MEDS ORDERED: ONDANSETRON 4 MG/2 ML VIAL IV PRN (11:15)
[2021-02-09] MEDS ORDERED: VANCOMYCIN IV 1,000 MG in IV DEXTROSE 5% 250 ML IV SCH (13:00)
[2021-02-09] MEDS ORDERED: AMIODARONE HCL IV 150 MG in IV DEXTROSE 5% 100 ML IV ONE (13:30)
[2021-02-09] MEDS: AMIODARONE HCL IV 450 MG in IV DEXTROSE 5% 250 ML IV PRN (14:47)
[2021-02-09] MEDS: PIPERACILLIN SODIUM/TAZOBACTAM 3.375 G in IV DEXTROSE 5% 50 ML IV SCH ×2 (15:08→21:08)
[2021-02-09] MEDS: IV NS 1000 ML 1,000 ML IV PRN (15:34)
[2021-02-09] MEDS ORDERED: APIXABAN 2.5 MG TABLET PO SCH (15:45)
[2021-02-09 16:27] VITALS: BP 106/63
[2021-02-09] MEDS: ACETAMINOPHEN 325 MG TABLET PO PRN (17:30)
[2021-02-09] MEDS: MEMANTINE HCL 10 MG TABLET PO SCH (17:31)
[2021-02-09] MEDS: RIVAROXABAN 15 MG TABLET PO SCH (17:34)
[2021-02-09 20:25] VITALS: BP 108/64
[2021-02-09] MEDS: TEMAZEPAM 15 MG CAPSULE PO PRN (21:09)
[2021-02-09] MEDS: DOCUSATE SODIUM 100 MG CAPSULE PO SCH (21:09)
[2021-02-10 00:12] VITALS: BP 112/48
[2021-02-10] MEDS: AMIODARONE HCL IV 450 MG in IV DEXTROSE 5% 250 ML IV PRN (01:28)
[2021-02-10 04:25] VITALS: BP 121/55
[2021-02-10] MEDS: PIPERACILLIN SODIUM/TAZOBACTAM 3.375 G in IV DEXTROSE 5% 50 ML IV SCH ×3 (06:02→22:13)
[2021-02-10 06:41] LABS: HEMATOCRIT 25.2 % (31.2-41.9); MEAN CORPUSCULAR VOLUME 75.6 fL (75.5-95.3); PLATELET COUNT (AUTO) 519 K/uL (179-408)
[2021-02-10 07:03] LABS: THYROID STIMULATING HORMONE 0.318 mIU/mL (0.358-3.740)
[2021-02-10 07:13] LABS: BILIRUBIN,TOTAL 0.3 mg/dL (0.2-1.0); MAGNESIUM 2.1 mg/dL (1.8-2.4); POTASSIUM 3.2 mmol/L (3.5-5.1); TOTAL PROTEIN, SERUM 6.9 g/dL (6.4-8.2)
[2021-02-10 08:00] VITALS: BP 100/54
[2021-02-10] MEDS ORDERED: DONEPEZIL 10 MG TABLET PO SCH (09:00)
[2021-02-10] MEDS ORDERED: DULOXETINE 60 MG CAPSULE.DR PO SCH (09:00)
[2021-02-10] MEDS ORDERED: POTASSIUM PHOSPHATE MM 15 MMOL in IV NORMAL SALINE 250 ML IV ONE (09:45)
[2021-02-10] MEDS ORDERED: POTASSIUM CHLORIDE 20 MEQ TAB.PRT.SR PO ONE (10:00)
[2021-02-10] MEDS: FAMOTIDINE 20 MG TABLET PO SCH (10:09)
[2021-02-10] MEDS: CHOLECALCIFEROL 1,000 UNIT TABLET PO SCH (10:09)
[2021-02-10] MEDS: FLUTICASONE/VILANTEROL 1 EACH BLST.W.DEV INH SCH (10:10)
[2021-02-10] MEDS: POTASSIUM CHLORIDE 10 MEQ TAB.PRT.SR PO SCH (10:10)
[2021-02-10] MEDS: MEMANTINE HCL 10 MG TABLET PO SCH ×2 (10:12→16:50)
[2021-02-10] MEDS: LEVOTHYROXINE SODIUM 25 MCG TABLET PO SCH (10:12)
[2021-02-10] MEDS: POTASSIUM PHOSPHATE MM 7.5 MMOL in IV NORMAL SALINE 97.5 ML IV SCH ×2 (10:20→14:42)
[2021-02-10] MEDS: IV NS 1000 ML 1,000 ML IV PRN (11:02)
[2021-02-10] MEDS ORDERED: HYDROCODONE/APAP 10-325 MG TABLET PO PRN (11:45)
[2021-02-10 12:00] VITALS: BP 113/59
[2021-02-10] MEDS: VANCOMYCIN IV 1,000 MG in IV DEXTROSE 5% 250 ML IV SCH (14:37)
[2021-02-10] MEDS: DEXAMETHASONE SOD PHOSPHATE 4 MG INJ IV SCH (14:41)
[2021-02-10] MEDS: GLUCERNA SHAKE VANILLA 237 ML CAN PO SCH (16:49)
[2021-02-10] MEDS: RIVAROXABAN 15 MG TABLET PO SCH (17:01)
[2021-02-10 20:10] VITALS: BP 115/58
[2021-02-10] MEDS: DOCUSATE SODIUM 100 MG CAPSULE PO SCH (20:16)
[2021-02-10] MEDS: AMIODARONE HCL 200 MG TABLET PO SCH (20:16)
[2021-02-10] MEDS: TEMAZEPAM 15 MG CAPSULE PO PRN (23:23)
[2021-02-11 00:03] VITALS: BP 119/63
[2021-02-11 04:15] VITALS: BP 126/66
[2021-02-11] MEDS: PIPERACILLIN SODIUM/TAZOBACTAM 3.375 G in IV DEXTROSE 5% 50 ML IV SCH ×3 (05:15→22:07)
[2021-02-11 06:33] LABS: HEMATOCRIT 24.9 % (31.2-41.9); MEAN CORPUSCULAR HEMOGLOBIN 23.1 uug (24.7-32.8); MEAN CORPUSCULAR VOLUME 75.7 fL (75.5-95.3); PLATELET COUNT (AUTO) 526 K/uL (179-408)
[2021-02-11 06:48] LABS: CREATININE 0.9 mg/dL (0.6-1.3); PHOSPHOROUS 2.6 mg/dL (2.5-4.9); POTASSIUM 4.2 mmol/L (3.5-5.1)
[2021-02-11] MEDS: FAMOTIDINE 20 MG TABLET PO SCH (08:21)
[2021-02-11] MEDS: AMIODARONE HCL 200 MG TABLET PO SCH ×2 (08:22→22:07)
[2021-02-11] MEDS: POTASSIUM CHLORIDE 10 MEQ TAB.PRT.SR PO SCH (08:22)
[2021-02-11] MEDS: MEMANTINE HCL 10 MG TABLET PO SCH ×2 (08:22→17:28)
[2021-02-11] MEDS: LEVOTHYROXINE SODIUM 25 MCG TABLET PO SCH (08:22)
[2021-02-11] MEDS: CHOLECALCIFEROL 1,000 UNIT TABLET PO SCH (08:22)
[2021-02-11] MEDS: DEXAMETHASONE SOD PHOSPHATE 4 MG INJ IV SCH (08:23)
[2021-02-11] MEDS: GLUCERNA SHAKE VANILLA 237 ML CAN PO SCH ×2 (08:23→17:00)
[2021-02-11] MEDS: FLUTICASONE/VILANTEROL 1 EACH BLST.W.DEV INH SCH (09:00)
[2021-02-11] MEDS: ACETAMINOPHEN 325 MG TABLET PO PRN (12:08)
[2021-02-11 12:21] VITALS: BP 118/61
[2021-02-11] MEDS: VANCOMYCIN IV 1,000 MG in IV DEXTROSE 5% 250 ML IV SCH (13:10)
[2021-02-11] MEDS ORDERED: MIRALAX 17 GM POWD.PACK PO PRN (14:00)
[2021-02-11] MEDS: ACIDOPHILUS/BULGARICUS CHEW TAB PO SCH ×2 (14:34→22:12)
[2021-02-11 15:31] VITALS: BP 132/82
[2021-02-11] MEDS: RIVAROXABAN 15 MG TABLET PO SCH (17:28)
[2021-02-11 20:07] VITALS: BP 131/68
[2021-02-11] MEDS: DOCUSATE SODIUM 100 MG CAPSULE PO SCH (22:06)
[2021-02-12 04:02] VITALS: BP 138/63
[2021-02-12] MEDS: PIPERACILLIN SODIUM/TAZOBACTAM 3.375 G in IV DEXTROSE 5% 50 ML IV SCH ×2 (06:00→13:29)
[2021-02-12 06:20] LABS: HEMATOCRIT 23.2 % (31.2-41.9); MEAN CORPUSCULAR HEMOGLOBIN 23.5 uug (24.7-32.8); MEAN CORPUSCULAR VOLUME 75.2 fL (75.5-95.3); PLATELET COUNT (AUTO) 594 K/uL (179-408)
[2021-02-12 06:32] LABS: PHOSPHOROUS 2.4 mg/dL (2.5-4.9); POTASSIUM 3.6 mmol/L (3.5-5.1)
[2021-02-12] MEDS: AMIODARONE HCL 200 MG TABLET PO SCH (08:23)
[2021-02-12] MEDS: MEMANTINE HCL 10 MG TABLET PO SCH (08:23)
[2021-02-12] MEDS: ACIDOPHILUS/BULGARICUS CHEW TAB PO SCH (08:23)
[2021-02-12] MEDS: LEVOTHYROXINE SODIUM 25 MCG TABLET PO SCH (08:23)
[2021-02-12] MEDS: FAMOTIDINE 20 MG TABLET PO SCH (08:23)
[2021-02-12] MEDS: CHOLECALCIFEROL 1,000 UNIT TABLET PO SCH (08:23)
[2021-02-12] MEDS: DEXAMETHASONE SOD PHOSPHATE 4 MG INJ IV SCH (08:24)
[2021-02-12] MEDS: ACETAMINOPHEN 325 MG TABLET PO PRN (08:35)
[2021-02-12] MEDS: GLUCERNA SHAKE VANILLA 237 ML CAN PO SCH (09:00)
[2021-02-12] MEDS ORDERED: SOD FERRIC GLUC COMPLX/SUCROSE 125 MG in IV NORMAL SALINE 100 ML IV SCH (09:00)
[2021-02-12] MEDS: FLUTICASONE/VILANTEROL 1 EACH BLST.W.DEV INH SCH (09:00)
[2021-02-12] MEDS ORDERED: FUROSEMIDE 20 MG/2 ML VIAL IV PRN (10:00)
[2021-02-12] MEDS ORDERED: POTASSIUM PHOSPHATE MM 7.5 MMOL in IV NORMAL SALINE 97.5 ML IV ONE (11:00)
[2021-02-12 11:35] VITALS: BP 133/65
[2021-02-12] MEDS: VANCOMYCIN IV 1,000 MG in IV DEXTROSE 5% 250 ML IV SCH (12:09)
[2021-02-12] MEDS ORDERED: HYDR-3980 PO (12:46)
[2021-02-12] MEDS ORDERED: AMOX-430 PO (12:46)
[2021-02-12] MEDS ORDERED: ACID1TAB4 PO (12:46)
[2021-02-12] MEDS ORDERED: FAMO-132 PO (12:46)
[2021-02-12] MEDS ORDERED: AMIO200T6 PO (12:46)
== END 2021-02-12 15:20 | disposition home health service (06) | DRG 871 ==
LOC: ER 06:17 → TELE3 10:17 → TELE-TD3 13:58 → CCU 02-10 08:25 → TELE3 02-10 19:16 → MEDSURG3 02-11 18:11
PROVIDERS: ADMIT Internal Medicine; ATTEND Internal Medicine
PROC: 05H933Z Insertion of Infusion Device into Right Brachial Vein, Percutaneous Approach (ICD-10-PCS; principal; 2021-02-09)
DX: A41.9 Sepsis, unspecified organism (principal); E43 Unspecified severe protein-calorie malnutrition; N17.0 Acute kidney failure with tubular necrosis; I50.31 Acute diastolic (congestive) heart failure; D68.59 Other primary thrombophilia; T86.8411 Corneal transplant failure, right eye; E86.0 Dehydration; I48.0 Paroxysmal atrial fibrillation; Z79.01 Long term (current) use of anticoagulants; J44.9 Chronic obstructive pulmonary disease, unspecified; F17.210 Nicotine dependence, cigarettes, uncomplicated; Z20.822 Contact with and (suspected) exposure to COVID-19; Z74.09 Other reduced mobility; D50.9 Iron deficiency anemia, unspecified; F32.9 Major depressive disorder, single episode, unspecified; H54.61 Unqualified visual loss, right eye, normal vision left eye; M48.061 Spinal stenosis, lumbar region without neurogenic claudication; I70.8 Atherosclerosis of other arteries; G89.29 Other chronic pain; M06.9 Rheumatoid arthritis, unspecified; I11.0 Hypertensive heart disease with heart failure; G31.84 Mild cognitive impairment of uncertain or unknown etiology; F41.9 Anxiety disorder, unspecified; E27.8 Other specified disorders of adrenal gland; E66.9 Obesity, unspecified; Z68.27 Body mass index [BMI] 27.0-27.9, adult; K21.9 Gastro-esophageal reflux disease without esophagitis; I35.8 Other nonrheumatic aortic valve disorders; I25.10 Atherosclerotic heart disease of native coronary artery without angina pectoris; E11.9 Type 2 diabetes mellitus without complications; M50.10 Cervical disc disorder with radiculopathy, unspecified cervical region; E03.9 Hypothyroidism, unspecified; M46.05 Spinal enthesopathy, thoracolumbar region; Z79.890 Hormone replacement therapy; Z90.49 Acquired absence of other specified parts of digestive tract; K40.90 Unilateral inguinal hernia, without obstruction or gangrene, not specified as recurrent; Z79.51 Long term (current) use of inhaled steroids; Z79.899 Other long term (current) drug therapy; Z79.4 Long term (current) use of insulin
CPT/HCPCS: 36415; 70030-TC; 71045; 72125; 83550; 83605; 83615; 83690; 83735; 84100; 84443; 85025; 86140; 86850; 86900; 86901; 86920; 87040; 87086; 93005; 93307; A4663; C1758; G0378; J0282; J0696; J1100; J1170; J2270; J2405; J2543; J3370; J3490; J7030; J7050; J7060; U0003

== ENCOUNTER 2021-05-17 02:16 | Inpatient (IN) | payer MEDICARE, OTHER ==
[~2021-05-17] VITALS: Ht 165.1 cm; Wt 75.8 kg
[~2021-05-17 02:16] MED LIST changes: +ACID1TAB4 PO; +AMIO200T6 PO; +AMOX-430 PO; -ATOR10TA PO; +DONE10TA44 PO; +FAMO-132 PO; -FAMO40TA7 PO; +FEBU40TA PO; -FERR325T28 PO; +HYDR-3980 PO; -HYDR-4354 PO; -METO25TA6 PO; -NITR50CA PO; -PRED5DRO16 LEFTEYE; -SODI15DR5 LEFTEYE; -TOBR5DRO2 RIGHTEYE; -[UNRECOGNIZED DRUG - OTHER] LEFTEYE
--- NOTE | 2021-05-17 02:27 | NUR ---
PT BIB RA 83 FROM HOME C/O SHIVERING AND SHAKING, ACCOMPANIED WITH SOB. PT A/O X3, DENIES CP/PRESSURE, NO N/V/D. 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 CLEAR SPEECH, COMPLETE SENTENCES.
--- NOTE | 2021-05-17 02:32 | NUR ---
DR. MALIK AT BEDSIDE, MSE IN PROGRESS.
[2021-05-17] MEDS ORDERED: ACETAMINOPHEN ES 500 MG TABLET PO ONE (02:45)
[2021-05-17] MEDS ORDERED: CEFTRIAXONE 1 G in IV DEXTROSE 5% 50 ML IV ONE (02:45)
--- NOTE | 2021-05-17 02:50 | NUR ---
LAB AT BEDSIDE.
[2021-05-17] MEDS ORDERED: FAMO40TA7 PO (02:57)
[2021-05-17] MEDS ORDERED: METF-440 PO (02:57)
[2021-05-17] MEDS ORDERED: OLME1TAB19 PO (02:57)
[2021-05-17] MEDS ORDERED: POTA8TAB3 PO (02:57)
[2021-05-17] MEDS ORDERED: PRED5DRO16 LEFTEYE (02:57)
[2021-05-17] MEDS ORDERED: [UNRECOGNIZED DRUG - OTHER] RIGHTEYE (02:57)
[2021-05-17] MEDS ORDERED: eye vitamin PO (02:57)
[2021-05-17] MEDS ORDERED: TOBR5DRO2 RIGHTEYE (02:57)
[2021-05-17] MEDS ORDERED: LEVO125T8 PO (02:57)
[2021-05-17] MEDS ORDERED: SODI15DR5 LEFTEYE (02:57)
[2021-05-17] MEDS ORDERED: CEFTRIAXONE /D5W 50ML IVPB **ER PYXIS IV ONE (02:58)
[2021-05-17] MEDS ORDERED: ACETAMINOPHEN ES 500 MG TABLET ONE (02:58)
--- NOTE | 2021-05-17 03:01 | NUR ---
XRAY AT BEDSIDE.
[2021-05-17 03:21] LABS: HEMATOCRIT 34.9 % (31.2-41.9); MEAN CORPUSCULAR HEMOGLOBIN 29.3 uug (24.7-32.8); MEAN CORPUSCULAR VOLUME 89.3 fL (75.5-95.3); PLATELET COUNT (AUTO) 295 K/uL (179-408)
[2021-05-17 03:30] LABS: ALANINE AMINOTRANSFERASE 16 U/L (14-59); ALKALINE PHOSPHATASE 62 U/L (50-136); ASPARTATE AMINOTRANSFERASE 14 U/L (15-37); BILIRUBIN,DIRECT < 0.1 mg/dL (0.0-0.2); BILIRUBIN,TOTAL 0.2 mg/dL (0.2-1.0); CARBON DIOXIDE 25 mmol/L (21-32); CHLORIDE 102 mmol/L (98-107); CREATININE 1.1 mg/dL (0.6-1.3); GLUCOSE 155 mg/dL (74-106); POTASSIUM 3.8 mmol/L (3.5-5.1); TOTAL PROTEIN, SERUM 7.6 g/dL (6.4-8.2); UREA NITROGEN, BLOOD 21 mg/dL (7-18)
[2021-05-17] MEDS ORDERED: IPRATROPIUM BROMIDE 0.5 MG/2.5 ML NEBU NEB ONE (03:30)
[2021-05-17] MEDS ORDERED: ALBUTEROL SULFATE 2.5 MG/3 ML NEBU NEB ONE (03:30)
[2021-05-17] MEDS ORDERED: methylPREDNISolone SOD SUCC 125 MG/2 ML VIAL IV ONE (03:30)
[2021-05-17] MEDS ORDERED: methylPREDNISolone SOD SUCC 125 MG/2 ML VIAL ONE (03:38)
--- NOTE | 2021-05-17 03:40 | NUR ---
CALLED [facility] PANEL CALL, HUMBERTO JACKSON PAGED.
[2021-05-17] MEDS ORDERED: IPRATROPIUM BROMIDE 0.5 MG/2.5 ML NEBU ONE (03:42)
[2021-05-17] MEDS ORDERED: ALBUTEROL SULFATE 2.5 MG/3 ML NEBU ONE (03:42)
[2021-05-17] MEDS ORDERED: ASPIRIN 81 MG TAB.CHEW PO ONE (03:45)
[2021-05-17] MEDS ORDERED: ASPIRIN 81 MG TAB.CHEW ONE (03:54)
[2021-05-17] MEDS ORDERED: DOXYCYCLINE HYCLATE 100 MG INJ IV ONE (03:59)
[2021-05-17] MEDS ORDERED: IV NORMAL SALINE 1000 ML BAG IV ONE (04:00)
[2021-05-17] MEDS ORDERED: DOXYCYCLINE HYCLATE IV 100 MG in IV DEXTROSE 5% 100 ML IV ONE (04:00)
[2021-05-17] MEDS ORDERED: VANCOMYCIN IV 200 ML ONE (04:00)
[2021-05-17] MEDS ORDERED: IV NS 1000 ML 1,000 ML IV ONE (04:00)
[2021-05-17] MEDS ORDERED: VANCOMYCIN 1G/D5W 200 ML PIGGYBACK IV ONE (04:00)
--- NOTE | 2021-05-17 04:10 | NUR ---
ASSISTED PT TO RESTROOM, STEADY GAIT, DENIES ANY BURNING OR PAIN WHILE URINATING. NO FOUL ODOR.
[2021-05-17 04:44] LABS: *BILIRUBIN,URIN NEGATIVE (NEGATIVE); *BLOOD, URINE 1+ (NEGATIVE); *CLARITY,URINE CLOUDY (CLEAR); *COLOR,URINE YELLOW (YELLOW); *KETONES,URINE NEGATIVE (NEGATIVE); *UROBILINOGEN,URINE 0.2 E.U./dl (NORMAL); LEUKOCYTE ESTERASE ,URINE 2+ (NEGATIVE); NITRITE, URINE NEGATIVE (NEGATIVE); UGLUCOSE NEGATIVE (NEGATIVE)
[2021-05-17 04:58] LABS: RBC,URINE 20-50 /HPF (0-3)
[2021-05-17 04:59] LABS: BACTERIA,URINE MODERATE /HPF (NONE SEEN); SQUAMOUS EPITHELIAL CELL,UR MODERATE /HPF (NONE SEEN); WBC,URINE 50-80 /HPF (0-3)
--- NOTE | 2021-05-17 05:22 | NUR ---
lab at bedside.
--- NOTE | 2021-05-17 06:23 | NUR ---
Bed assignment 327
--- NOTE | 2021-05-17 06:42 | NUR ---
Patient is resting comfortably in bed with eyes closed. Breathing even and unlabored.
[2021-05-17] MEDS ORDERED: DEXTROSE 50% 50 ML DISP.SYRIN IV PRN (06:45)
[2021-05-17] MEDS ORDERED: ALBUTEROL SULFATE 8 GM HFA.AER.AD IH PRN (06:45)
[2021-05-17] MEDS ORDERED: MAGNESIUM HYDROXIDE 30 ML LIQUID UDC PO PRN (06:45)
[2021-05-17] MEDS ORDERED: IPRATROPIUM BROMIDE 12.9 GM INHALER INH PRN (06:45)
[2021-05-17] MEDS ORDERED: ONDANSETRON 4 MG/2 ML VIAL IV PRN (06:45)
--- NOTE | 2021-05-17 07:05 | NUR ---
ASSISTED PT TO AMBULATE TO RESTROOM. STEADY GAIT.
[2021-05-17] MEDS: BLOOD SUGAR DIAGNOSTIC 1 EACH STRIP VI SCH ×4 (07:30→20:24)
--- NOTE | 2021-05-17 07:51 | NUR ---
ASSISSTEF PT TO BATHROOM, PT WALKS IN STEADY GAIT.
--- NOTE | 2021-05-17 07:51 | NUR ---
Sameer espinoza in [facility] - 05/17/21 at 0758 by ANA PT AMBULATED TO BATHROOM WITH STEADY GAIT, WITH ASSISSTANCE.
--- NOTE | 2021-05-17 08:20 | NUR ---
PT IS A-FIB WITH HR OF 112-121 ON BEDISDE MONITOR, REPEAT EKG CONFIRMED IT. BP 110/71, PT DENEIS ANY SOB OR CP AT THIS TIME. CALLED EPIC TO INFORM THE ADMITTING . Addendum: 05/17/21 at 0824 by PHILIPPE THE EKG ON ADMISSION TO ER READ SINUS RYTHM WITH SHORT IN, RATE OF 83
--- NOTE | 2021-05-17 08:29 | NUR ---
DR. KIM CALLED BACK AND CHANGE THE STATUS TO [facility], WILL CARRY THE ORDERS WHILE PT IS IN ER.
--- NOTE | 2021-05-17 08:40 | NUR ---
Nursing production welding supervisor notified for [facility] bed assignment, production welding supervisor to call back with further information.
[2021-05-17] MEDS ORDERED: IPRATROPIUM BROMIDE 0.5 MG/2.5 ML NEBU NEB PRN (08:45)
[2021-05-17] MEDS ORDERED: ALBUTEROL SULFATE 2.5 MG/ 0.5 ML NEBU NEB PRN (08:45)
[2021-05-17] MEDS ORDERED: ENOXAPARIN SODIUM 40 MG/0.4 ML DISP.SYRIN SQ ONE (08:51)
[2021-05-17] MEDS ORDERED: PIPERACILLIN/TAZOBACTAM/D5W 50 ML IV ONE (08:51)
[2021-05-17] MEDS: PIPERACILLIN SODIUM/TAZOBACTAM 3.375 G in IV DEXTROSE 5% 100 ML IV SCH ×2 (08:55→16:46)
[2021-05-17] MEDS ORDERED: PIPERACILLIN SODIUM/TAZOBACTAM 3.375 G in IV DEXTROSE 5% 50 ML IV SCH (09:00)
[2021-05-17] MEDS ORDERED: ENOXAPARIN SODIUM 40 MG/0.4 ML DISP.SYRIN SQ SCH (09:00)
--- NOTE | 2021-05-17 09:00 | NUR ---
pt co of mild headache 4/10, medicated per admitting orders.
[2021-05-17] MEDS: INSULIN REGULAR, HUMAN 300 UNIT/3 ML VIAL SQ PRN ×3 (09:04→16:51)
[2021-05-17] MEDS ORDERED: INSULIN REGULAR, HUMAN 300 UNIT/3 ML VIAL ONE (09:09)
[2021-05-17] MEDS: ACETAMINOPHEN 325 MG TABLET PO PRN ×2 (09:14→21:18)
--- NOTE | 2021-05-17 09:14 | NUR ---
pt wants to rest, refuses breakfast or any juice at this time.
[2021-05-17] MEDS ORDERED: ACETAMINOPHEN 325 MG TABLET ONE (09:19)
--- NOTE | 2021-05-17 09:59 | NUR ---
PTS DAUGHTER, GINNY COLLINS, CALLED AND SAID THE FOLLOWING: PT HAS SOME AUTOIMMUNE DESEASE, PT IS UNDER CARE OF DR. CALDWELL, LOCKSTITCH LINING SETTER/ONCOLOGIST, , FOR UNKNOWN ETIOLOGY OF ANEMIA. PT WAS SEEN ON SATURDAY AND HAS TO FOLLOW UP Q 2 WEEKS. PT'S PRIMAR Y DOCTOR IS DR. ALAMO, [phone], PT'S DAUGHTRER ALREADY INFORMED THAT THE PT IS IN HOSPITAL.
--- NOTE | 2021-05-17 10:10 | NUR ---
DR. CHIU AT BEDSIDE.
--- NOTE | 2021-05-17 10:40 | NUR ---
TRANSFERED PT TO FLOOR IN STABLE CONDITION.
--- NOTE | 2021-05-17 10:50 | NUR ---
ADMITTED FROM HOME VIA ER A 76 YO FEMALE WITH ADMITTING DX OF UTI, COPD EXACERBATION, AWAKE ALERT AND ORIENTED X3, ABLE TO PARTICIPATE WITH ADMISSION ASSESSMENT CONNECTED TO HEART MONITOR, RAPID AFIB AT A RATE OF 120-128, NO SOB OR CHEST PAIN. PATIENT SEEN BY DR TADEO IN ER WITH ORDER TO START AMIODARONE DRIP PER PROTOCOL.
[2021-05-17] MEDS: METOPROLOL SUCCINATE XL 25 MG TAB.SR.24H PO SCH ×2 (11:00→12:17)
[2021-05-17] MEDS ORDERED: AMIODARONE HCL IV 150 MG in IV DEXTROSE 5% 100 ML IV ONE (11:00)
--- NOTE | 2021-05-17 11:00 | NUR ---
SEEN BY DR KIM WITH ORDERS
[2021-05-17 12:00] VITALS: BP 129/77
[2021-05-17] MEDS: AMIODARONE HCL IV 450 MG in IV DEXTROSE 5% 250 ML IV PRN ×2 (12:02→21:42)
[2021-05-17] MEDS: IV NS 1000 ML 1,000 ML IV PRN (13:23)
[2021-05-17] MEDS ORDERED: methylPREDNISolone SOD SUCC 40 MG/ML VIAL IV SCH (14:00)
--- NOTE | 2021-05-17 14:00 | NUR ---
PATIENT CONVERTED TO SR AT 1400 65-80/MIN, DENIES CHEST PAIN OR SOB WILL NOTIFY GROUND [employer] [employer]
--- NOTE | 2021-05-17 15:56 | NUR ---
TEXT MESSAGE FROM DR GERMAIN RECEIVED, ADVISED TO CONTINUE AMIODARONE DRIP TILL TOMORROW PER PROTOCOL
[2021-05-17 16:00] VITALS: BP 106/48
[2021-05-17] MEDS: RIVAROXABAN 15 MG TABLET PO SCH (16:52)
--- NOTE | 2021-05-17 19:00 | NUR ---
Received patient from [facility] per wheelchair accompanied by 2 staff member, without any incident. Patient is awake, A/Ox3, confused, denies pain at this time. No signs of acute distress noted. Checked IV site patent and flushed. Bed at lowest position, brakes on, siderails x3. Call light within reach. Will continue to monitor.
--- NOTE | 2021-05-17 19:30 | NUR ---
Patient emotional and c/o why she's here in this hospital. " I wanted to go to his hospital" referring to Dr. Hearn. "I'm blind and sick." Patient advised and reoriented that during emergency the ambulance will take her to the nearest hospital. Offered to call Dr. Hearn so patient can talk to him and patient says it's ok. "I'll talk to him tomorrow." Patient needs met. Call light within reach, warm blankets and commode provided. Message left to patient's daughter Hue re: patient's transfer to CCU for convenience. Status remains [facility].
[2021-05-17 20:00] VITALS: BP 128/44
--- NOTE | 2021-05-17 20:05 | NUR ---
Patient's daughter Hue called back; informed of transfer and patient's condition. Will come.
[2021-05-17] MEDS: ATORVASTATIN 20 MG TABLET PO SCH (20:15)
--- NOTE | 2021-05-17 20:50 | NUR ---
Daughter at bedside, report given. Addendum: 05/17/21 at 2207 by Suri Marcelino RN Amended: Links added.
[2021-05-17 21:00] VITALS: BP 122/74
--- NOTE | 2021-05-17 21:00 | NUR ---
Daughter is requesting calming meds for her mom and to contact Dr. Corbett. Contacted Dr. Corbett regarding daughter's request.
--- NOTE | 2021-05-17 21:57 | NUR ---
Dr. Corbett called back with new orders. Noted and carried out.
[2021-05-17 22:00] VITALS: BP 118/94
[2021-05-17] MEDS ORDERED: ALPRAZOLAM 0.5 MG TABLET PO PRN (22:00)
[2021-05-17] MEDS: VANCOMYCIN IV 1,000 MG in IV DEXTROSE 5% 250 ML IV SCH (22:09)
[2021-05-17 23:00] VITALS: BP 108/58
[2021-05-18] VITALS (13 sets, daily range): BP systolic 88–148; BP diastolic 25–92
[2021-05-18] MEDS: PIPERACILLIN SODIUM/TAZOBACTAM 3.375 G in IV DEXTROSE 5% 100 ML IV SCH ×3 (00:13→16:48)
[2021-05-18 05:00] LABS: HEMATOCRIT 28.8 % (31.2-41.9); MEAN CORPUSCULAR HEMOGLOBIN 28.8 uug (24.7-32.8); MEAN CORPUSCULAR VOLUME 88.5 fL (75.5-95.3); PLATELET COUNT (AUTO) 336 K/uL (179-408)
[2021-05-18 05:16] LABS: BILIRUBIN,TOTAL 0.4 mg/dL (0.2-1.0); CREATININE 1.1 mg/dL (0.6-1.3); MAGNESIUM 2.1 mg/dL (1.8-2.4); PHOSPHOROUS 2.8 mg/dL (2.5-4.9); POTASSIUM 3.3 mmol/L (3.5-5.1); TOTAL PROTEIN, SERUM 6.2 g/dL (6.4-8.2)
--- NOTE | 2021-05-18 06:05 | NUR ---
Called [facility] and spoke with Dr. Saldivar, reported patient's condition HR 48-low 50s, BP 86/36, stop amiodarone drip and AM labs, with no new orders. Will continue to monitor closely.
[2021-05-18] MEDS: BLOOD SUGAR DIAGNOSTIC 1 EACH STRIP VI SCH ×4 (06:33→20:54)
--- NOTE | 2021-05-18 07:24 | NUR ---
Patient is in stable condition, able to make needs known with assistance, vital signs stable. AM care and comfort care provided.
[2021-05-18] MEDS ORDERED: POTASSIUM CHLORIDE 20 MEQ POWDER PACKET GT ONE (07:45)
[2021-05-18] MEDS: AMIODARONE HCL 200 MG TABLET PO SCH ×2 (08:38→20:54)
[2021-05-18] MEDS: IV NS 1000 ML 1,000 ML IV PRN (10:07)
[2021-05-18 10:58] LABS: IRON, SERUM 46 ug/dL (50-175)
[2021-05-18] MEDS: VANCOMYCIN IV 1,000 MG in IV DEXTROSE 5% 250 ML IV SCH (16:47)
[2021-05-18] MEDS: RIVAROXABAN 15 MG TABLET PO SCH (17:01)
--- NOTE | 2021-05-18 19:18 | NUR ---
Left pt. in room AAOX4. vitals stable, no c/of pain. IV line patent. Hemodynamically stable.
[2021-05-18] MEDS ORDERED: HYDROCODONE/APAP 10-325 MG TABLET PO PRN (19:30)
[2021-05-18] MEDS: ATORVASTATIN 20 MG TABLET PO SCH (20:54)
[2021-05-18] MEDS: DOCUSATE SODIUM 100 MG CAPSULE PO SCH (20:54)
[2021-05-19 00:01] VITALS: BP 123/75
--- NOTE | 2021-05-19 00:01 | NUR ---
Ambulatory to BRP, paola well.
[2021-05-19] MEDS: PIPERACILLIN SODIUM/TAZOBACTAM 3.375 G in IV DEXTROSE 5% 100 ML IV SCH ×3 (00:54→17:16)
[2021-05-19 04:00] VITALS: BP 111/65
[2021-05-19] MEDS: IV NS 1000 ML 1,000 ML IV PRN (05:04)
[2021-05-19 05:18] LABS: HEMATOCRIT 31.2 % (31.2-41.9); MEAN CORPUSCULAR HEMOGLOBIN 29.8 uug (24.7-32.8); MEAN CORPUSCULAR VOLUME 89.4 fL (75.5-95.3); PLATELET COUNT (AUTO) 388 K/uL (179-408)
[2021-05-19 05:28] LABS: CREATININE 1.1 mg/dL (0.6-1.3); MAGNESIUM 2.2 mg/dL (1.8-2.4); PHOSPHOROUS 2.3 mg/dL (2.5-4.9); POTASSIUM 3.7 mmol/L (3.5-5.1)
[2021-05-19 05:38] LABS: THYROID STIMULATING HORMONE 1.934 mIU/mL (0.358-3.740)
[2021-05-19] MEDS: BLOOD SUGAR DIAGNOSTIC 1 EACH STRIP VI SCH ×3 (06:46→17:05)
[2021-05-19] MEDS: LEVOTHYROXINE SODIUM 125 MCG TABLET PO SCH (06:47)
[2021-05-19 07:48] VITALS: BP 149/58
[2021-05-19] MEDS ORDERED: Medication Not On Formulary EA (Potassium Chloride 8 MEQ) PO SCH (09:00)
[2021-05-19] MEDS: AMIODARONE HCL 200 MG TABLET PO SCH ×2 (09:34→20:31)
[2021-05-19] MEDS: DULOXETINE 60 MG CAPSULE.DR PO SCH (09:34)
[2021-05-19] MEDS: FLUTICASONE/VILANTEROL 1 EACH BLST.W.DEV INH SCH (09:35)
[2021-05-19] MEDS: POTASSIUM CHLORIDE 8 MEQ TAB.PRT.SR PO SCH (09:35)
[2021-05-19 11:16] VITALS: BP 153/78
[2021-05-19] MEDS: VANCOMYCIN IV 1,000 MG in IV DEXTROSE 5% 250 ML IV SCH (11:21)
[2021-05-19] MEDS ORDERED: POTASSIUM PHOSPHATE MM 7.5 MMOL in IV NORMAL SALINE 97.5 ML IV ONE (13:00)
[2021-05-19 16:04] VITALS: BP 113/87
[2021-05-19] MEDS: RIVAROXABAN 15 MG TABLET PO SCH (17:17)
[2021-05-19 20:00] VITALS: BP 137/61
[2021-05-19] MEDS: ATORVASTATIN 20 MG TABLET PO SCH (20:32)
[2021-05-19] MEDS: DOCUSATE SODIUM 100 MG CAPSULE PO SCH (20:32)
--- NOTE | 2021-05-19 20:43 | NUR ---
Received pt resting in bed. AAO x4. No acute distress noted. Denies pain/ discomfort. Due meds given as ordered. Blood sugar 95, no insulin coverage as per sliding scale. IV line, patent. BRP, tolerated well, continent. Safety measures maintained. Call light and personal items within reach. Will continue to monitor.
[2021-05-20] MEDS: PIPERACILLIN SODIUM/TAZOBACTAM 3.375 G in IV DEXTROSE 5% 100 ML IV SCH ×2 (00:29→08:38)
[2021-05-20 04:00] VITALS: BP_SYST 130; BP_SYST 136; BP_DIAS 78; BP_DIAS 91
[2021-05-20] MEDS: LEVOTHYROXINE SODIUM 125 MCG TABLET PO SCH (06:07)
[2021-05-20 07:29] LABS: HEMATOCRIT 30.4 % (31.2-41.9); MEAN CORPUSCULAR HEMOGLOBIN 29.6 uug (24.7-32.8); PLATELET COUNT (AUTO) 337 K/uL (179-408)
[2021-05-20 07:45] LABS: CREATININE 1.1 mg/dL (0.6-1.3); MAGNESIUM 2.1 mg/dL (1.8-2.4); PHOSPHOROUS 3.8 mg/dL (2.5-4.9); POTASSIUM 3.5 mmol/L (3.5-5.1)
--- NOTE | 2021-05-20 08:00 | NUR ---
awake alert and verbally responsive no ss of pain or sob SR on monitor
[2021-05-20] MEDS: DULOXETINE 60 MG CAPSULE.DR PO SCH (08:38)
[2021-05-20] MEDS: POTASSIUM CHLORIDE 8 MEQ TAB.PRT.SR PO SCH (08:38)
[2021-05-20] MEDS: AMIODARONE HCL 200 MG TABLET PO SCH (08:38)
[2021-05-20] MEDS: FLUTICASONE/VILANTEROL 1 EACH BLST.W.DEV INH SCH (08:47)
[2021-05-20] MEDS ORDERED: POTASSIUM CHLORIDE 20 MEQ TAB.PRT.SR PO ONE (10:30)
[2021-05-20 11:03] VITALS: BP 142/53
--- NOTE | 2021-05-20 12:00 | NUR ---
seen by dr rooney plan [facility] home today
[2021-05-20] MEDS ORDERED: ALPR0.5T PO (13:21)
[2021-05-20] MEDS ORDERED: AMIO200T6 PO (13:21)
[2021-05-20] MEDS ORDERED: HYDR-3980 PO (13:21)
[2021-05-20] MEDS ORDERED: ATOR10TA PO (13:21)
[2021-05-20] MEDS ORDERED: AMOX-430 PO (13:40)
[2021-05-20 14:59] VITALS: BP 117/52
--- NOTE | 2021-05-20 16:06 | NUR ---
discharge home stable accompanied by with rx and follow-up instruction with primary doctor given
== END 2021-05-20 16:00 | disposition home or self-care (01) | DRG 871 ==
LOC: ER 02:19 → OBSER 08:24 → TELE3 10:26 → TELE-TD3 10:30 → CCU 20:06 → TELE-TD3 05-19 07:37 → TELE3 05-19 10:03 → MEDSURG3 05-20 11:49
PROVIDERS: ADMIT Internal Medicine; ATTEND Internal Medicine
PROC: 05H533Z Insertion of Infusion Device into Right Subclavian Vein, Percutaneous Approach (ICD-10-PCS; principal; 2021-05-17)
PROC: B546ZZA Ultrasonography of Right Subclavian Vein, Guidance (ICD-10-PCS; 2021-05-17)
DX: A41.9 Sepsis, unspecified organism (principal); E43 Unspecified severe protein-calorie malnutrition; I21.A1 Myocardial infarction type 2; J44.1 Chronic obstructive pulmonary disease with (acute) exacerbation; N39.0 Urinary tract infection, site not specified; D68.59 Other primary thrombophilia; I50.32 Chronic diastolic (congestive) heart failure; I48.0 Paroxysmal atrial fibrillation; Z79.01 Long term (current) use of anticoagulants; E03.9 Hypothyroidism, unspecified; Z20.822 Contact with and (suspected) exposure to COVID-19; E78.5 Hyperlipidemia, unspecified; E11.9 Type 2 diabetes mellitus without complications; E66.9 Obesity, unspecified; F32.A Depression, unspecified; F17.210 Nicotine dependence, cigarettes, uncomplicated; F41.9 Anxiety disorder, unspecified; G89.4 Chronic pain syndrome; I25.10 Atherosclerotic heart disease of native coronary artery without angina pectoris; K21.9 Gastro-esophageal reflux disease without esophagitis; Z79.4 Long term (current) use of insulin; Z87.440 Personal history of urinary (tract) infections; K59.00 Constipation, unspecified; I11.0 Hypertensive heart disease with heart failure; M06.9 Rheumatoid arthritis, unspecified; M19.90 Unspecified osteoarthritis, unspecified site; M54.10 Radiculopathy, site unspecified; H54.61 Unqualified visual loss, right eye, normal vision left eye; E61.1 Iron deficiency; G31.84 Mild cognitive impairment of uncertain or unknown etiology; Z68.27 Body mass index [BMI] 27.0-27.9, adult; Z79.84 Long term (current) use of oral hypoglycemic drugs
CPT/HCPCS: 36415; 70030-TC; 71045; 83550; 83605; 83615; 83735; 84100; 84443; 85025; 85730; 86140; 87040; 87086; 87400; 93005; A9150; G0378; J0282; J0696; J1650; J1815; J2543; J2930; J3370; J3490; J3590; J7030; J7040; J7060; U0003

== ENCOUNTER 2021-10-13 19:04 | Inpatient (IN) | payer MEDICARE, OTHER ==
[~2021-10-13] VITALS: Ht 165.1 cm; Wt 68.0 kg
[~2021-10-13 19:04] MED LIST changes: -ACID1TAB4 PO; +ALPR0.5T PO; +ATOR10TA PO; -FAMO-132 PO; +LEVO125T8 PO; -LEVO25TA9 PO; -POTA10CA43 PO; +POTA8TAB3 PO
--- NOTE | 2021-10-13 19:10 | NUR ---
PT BIB RA FROM HOME FOR AMS PER PARAMEDICS REPORT FAMILY STATES SHE IS USUALLY A/O X3 BUT THIS MORNING THEY NOTICED SHE IS A/O X2. PT IS RESPOSIVE CLEAR SPEECH, COMPLETE SENTENCES BUT PROVIDES POOR HX. NO SOB OR LABORED BREATHING, AFEBRILE. DENIES CP/PRESSURE. GLUCOSE CHECK UPON ARRIVAL IS 142.
--- NOTE | 2021-10-13 19:20 | NUR ---
DR. EDDY AT BEDSIDE, MSE IN PROGRESS.
--- NOTE | 2021-10-13 19:50 | NUR ---
LAB AT BEDSIDE.
[2021-10-13] MEDS ORDERED: SODI15DR5 LEFTEYE (20:17)
[2021-10-13] MEDS ORDERED: METO-356 PO (20:17)
[2021-10-13] MEDS ORDERED: PRED5DRO24 LEFTEYE (20:17)
[2021-10-13] MEDS ORDERED: TOBR3.5O2 RIGHTEYE (20:17)
[2021-10-13] MEDS ORDERED: FLUT1BLS IH (20:17)
[2021-10-13] MEDS ORDERED: FAMO40TA7 PO (20:17)
[2021-10-13] MEDS ORDERED: ESOM40CA PO (20:17)
[2021-10-13 20:43] LABS: CARBON DIOXIDE 26 mmol/L (21-32); CHLORIDE 101 mmol/L (98-107); CREATININE 1.1 mg/dL (0.6-1.3); GLUCOSE 157 mg/dL (74-106); POTASSIUM 3.9 mmol/L (3.5-5.1); UREA NITROGEN, BLOOD 27 mg/dL (7-18)
[2021-10-13 20:45] LABS: ETHANOL < 3 MG/DL (0-0)
[2021-10-13] MEDS ORDERED: ACETAMINOPHEN 650 MG SUPP.RECT RC ONE ×2 (20:45→20:52)
[2021-10-13] MEDS ORDERED: ACETAMINOPHEN 325 MG SUPP RC ONE (20:45)
[2021-10-13 20:51] LABS: ALANINE AMINOTRANSFERASE 23 U/L (14-59); ALKALINE PHOSPHATASE 61 U/L (50-136); ASPARTATE AMINOTRANSFERASE 20 U/L (15-37); BILIRUBIN,DIRECT 0.1 mg/dL (0.0-0.2); BILIRUBIN,TOTAL 0.2 mg/dL (0.2-1.0); TOTAL PROTEIN, SERUM 7.8 g/dL (6.4-8.2)
[2021-10-13 20:52] LABS: ACETAMINOPHEN < 2.0 ug/mL (10-30)
[2021-10-13] MEDS ORDERED: ACETAMINOPHEN 325 MG SUPP ONE (20:52)
[2021-10-13 20:56] LABS: THYROID STIMULATING HORMONE 0.833 mIU/mL (0.358-3.740)
[2021-10-13 21:55] LABS: HEMATOCRIT 33.8 % (31.2-41.9); MEAN CORPUSCULAR HEMOGLOBIN 29.1 uug (24.7-32.8); MEAN CORPUSCULAR VOLUME 88.2 fL (75.5-95.3); PLATELET COUNT (AUTO) 297 K/uL (179-408)
[2021-10-13 22:26] LABS: *BILIRUBIN,URIN NEGATIVE (NEGATIVE); *COLOR,URINE YELLOW (YELLOW); *KETONES,URINE NEGATIVE (NEGATIVE); *UROBILINOGEN,URINE 0.2 E.U./dl (NORMAL); LEUKOCYTE ESTERASE ,URINE 1+ (NEGATIVE); NITRITE, URINE NEGATIVE (NEGATIVE); PH,URINE 5.5 (5.0-8.0); UGLUCOSE NEGATIVE (NEGATIVE)
--- NOTE | 2021-10-13 22:28 | NUR ---
ASSISTED PT TO AMBULATE TO RESTROOM.
[2021-10-13 22:32] LABS: *BLOOD, URINE TRACE (NEGATIVE); *CLARITY,URINE HAZY (CLEAR)
[2021-10-13 22:39] LABS: *AMPHETAMINE, URINE NEGATIVE (NEGATIVE); *CANNABINOID, URINE NEGATIVE (NEGATIVE); *COCCAINE, URINE NEGATIVE (NEGATIVE); *OPIATE, URINE POSITIVE (NEGATIVE); *PHENCYCLIDINE SCREEN,URINE NEGATIVE (NEGATIVE)
[2021-10-13 22:46] LABS: BACTERIA,URINE FEW /HPF (NONE SEEN); RBC,URINE 0-3 /HPF (0-3); SQUAMOUS EPITHELIAL CELL,UR MODERATE /HPF (NONE SEEN)
[2021-10-13] MEDS ORDERED: PIPERACILLIN SODIUM/TAZOBACTAM 3.375 G in IV DEXTROSE 5% 50 ML IV ONE (23:00)
[2021-10-13] MEDS ORDERED: IV NS 1000 ML 1,000 ML IV ONE (23:00)
[2021-10-13] MEDS ORDERED: PIPERACILLIN/TAZOBACTAM/D5W 50 ML IV ONE (23:23)
--- NOTE | 2021-10-13 23:52 | NUR ---
PT TAKEN TO CT.
--- NOTE | 2021-10-14 | NUR ---
Called [facility] to page Dr. Bowie.
--- NOTE | 2021-10-14 00:14 | NUR ---
PT RETURNED FROM CT.
[2021-10-14] MEDS ORDERED: ACETAMINOPHEN 325 MG TABLET PO PRN (01:15)
[2021-10-14] MEDS ORDERED: MAGNESIUM HYDROXIDE 30 ML LIQUID UDC PO PRN (01:15)
[2021-10-14] MEDS ORDERED: REMEDY ESSENTIAL ZINC PASTE 113 GM TP PRN (01:15)
[2021-10-14] MEDS ORDERED: ONDANSETRON 4 MG/2 ML VIAL IV PRN (01:15)
--- NOTE | 2021-10-14 03:50 | NUR ---
GAVE REPORT TO CHACORTA MACKAY.
--- NOTE | 2021-10-14 04:35 | NUR ---
Pt. admitted to tele , under care of Dr. Bowie Belongs List completed
--- NOTE | 2021-10-14 05:00 | NUR ---
admitted this 76 y.o elderly lady from er via wheelchair, alert, oriented x2, forgetful at times.diagnosis of altered mental status,according to daughter, pt had taken extra vicodin of unknown quantity.continent of bowel and bladder.on tele afib hr 120-135, bun 27.g20 on right forarm, patent and intact.afebrile.
[2021-10-14 05:09] VITALS: BP 119/76
[2021-10-14] MEDS ORDERED: PIPERACILLIN SODIUM/TAZOBACTAM 3.375 G in IV DEXTROSE 5% 50 ML IV SCH (06:00)
--- NOTE | 2021-10-14 06:14 | NUR ---
voided freely well, refused to be assessed, just wanted to sleep and be left alone.urine test showed positive for opiates.kept warm and comfortable. needs attended to.dr hayes notified re; afib hr bet 120-135.
[2021-10-14] MEDS ORDERED: DILTIAZEM HCL 25 MG IV IV ONE (07:45)
--- NOTE | 2021-10-14 08:00 | NUR ---
Received patient report from PM nurse. Arrived to patient's room sleeping comfortably with no signs of distress or discomfort. Patient's heart rate at 138. Kerzuma notified and orderred Cardizem 10mg IVP. Will monitor patient. IV site patent and intact. Bed left in lowest position with call light within reach. Patient ambulatory with assistance to bathroom.
[2021-10-14] MEDS: PANTOPRAZOLE SODIUM 40 MG TABLET.DR PO SCH (08:11)
[2021-10-14] MEDS: IV 1/2NS 1000 ML 1,000 ML IV PRN ×2 (09:20→19:00)
[2021-10-14] MEDS: PIPERACILLIN SODIUM/TAZOBACTAM 3.375 G in IV DEXTROSE 5% 100 ML IV SCH ×2 (09:21→16:12)
[2021-10-14 11:44] VITALS: BP 123/58
[2021-10-14] MEDS ORDERED: RIVA10TA PO (14:34)
[2021-10-14] MEDS ORDERED: LEVO25TA9 PO (14:36)
[2021-10-14] MEDS ORDERED: ICOS1CAP PO (14:48)
[2021-10-14] MEDS ORDERED: METO25TA6 PO (14:49)
[2021-10-14 16:10] VITALS: BP 103/52
--- NOTE | 2021-10-14 17:36 | NUR ---
Patient pulled out IV site when going to the restroom. Multiple attempts at reinserting new IV line, unsuccessful. Order for midline put in. Midline supplies at bedside.
--- NOTE | 2021-10-14 18:30 | NUR ---
New IV site placed, CHANEL 18G.
[2021-10-14] MEDS ORDERED: MISCELLANEOUS MED EACHEYE PRN (18:45)
--- NOTE | 2021-10-14 18:48 | NUR ---
Patient's family request eye drops to be at patient's bedside due. Order put in for 4 eyedrops PRN due to family request. Will endorse information to PM nurse
[2021-10-14 20:15] VITALS: BP 124/71
--- NOTE | 2021-10-14 21:26 | NUR ---
Patient alert oriented, speak Malaysian but understand Uzbek, and speak Uzbek also, no complain of pain, continent of bladder, assisted with toileting, monitor closely, risk for fall due patient has right eye blindness, place close to station, staff seat close by patient room. cont to monitor. patient tele monitor A fib control, seen by assembler tubing. no sob no chest pain. cont to monitor.
[2021-10-15] MEDS: PIPERACILLIN SODIUM/TAZOBACTAM 3.375 G in IV DEXTROSE 5% 100 ML IV SCH ×3 (00:07→15:53)
[2021-10-15 00:08] VITALS: BP 127/53
[2021-10-15 04:20] VITALS: BP 108/43
[2021-10-15] MEDS: PANTOPRAZOLE SODIUM 40 MG TABLET.DR PO SCH (06:31)
[2021-10-15 06:35] LABS: HEMATOCRIT 29.3 % (31.2-41.9); MEAN CORPUSCULAR HEMOGLOBIN 28.9 uug (24.7-32.8); MEAN CORPUSCULAR VOLUME 88.6 fL (75.5-95.3); PLATELET COUNT (AUTO) 316 K/uL (179-408)
[2021-10-15 06:51] LABS: CREATININE 0.9 mg/dL (0.6-1.3); MAGNESIUM 2.2 mg/dL (1.8-2.4); PHOSPHOROUS 1.9 mg/dL (2.5-4.9); POTASSIUM 3.6 mmol/L (3.5-5.1)
[2021-10-15 07:30] LABS: THYROID STIMULATING HORMONE 0.397 mIU/mL (0.358-3.740)
--- NOTE | 2021-10-15 08:00 | NUR ---
Fall precaution implemented. Bed alarm on. Pt NIGERIEN speaking but able to make her needs known. Right Upper arm ML intact. IVF infusing as ordered. Assisted pt to bathroom SBA. Pt has good balance when ambulating. Pt's right eye is blind environmental safety done. Pt independent on eating. Call light is within reach.
[2021-10-15 09:22] LABS: EOSINOPHILS % (MANUAL) 2 % (0-8); LYMPHOCYTES % (MANUAL) 32 % (20-40); MONOCYTES % (MANUAL) 9 % (2-10); NEUTROPHILS % (MANUAL) 57 % (42-75)
[2021-10-15 11:52] VITALS: BP 129/55
[2021-10-15] MEDS: NEUTRA PHOS PACKET PO ONE ×2 (15:45→15:53)
[2021-10-15 16:01] VITALS: BP 112/60
--- NOTE | 2021-10-15 17:28 | NUR ---
No fall noted. Pt is in no acute distress. Still awaiting for medications to be reconciled. Pharmacy contacted DR for meds to be reconciled.
--- NOTE | 2021-10-15 19:30 | NUR ---
RECEIVED PT AWAKE, ALERT AND ORIENTEDX3. FAMILY AT BEDSIDE. PT IV INTACT. PT ON ROOM AIR. SAFETY AND COMFORT PROVIDED. WILL CONTINUE TO MONITOR.
[2021-10-15 20:06] VITALS: BP 140/69
--- NOTE | 2021-10-15 21:26 | NUR ---
PT TRYING TO GET OUT OF THE BED AND PUSHING THE CALL LIGHT BUTTON ALWAYS. DAUGHTER DUSTIN CALLED AND ASKED IF HER MOTHER CAN HAVE HER KLONOPIN 0.5MG HS WHICH SHE TAKE AT HOME AT NIGHT. NOTIFY DR. CHRIS MCCARTNEY REGARDING FAMILY REQUEST AND ASSESSMENT WITH PT. DR. STEVENS ORDERED KLONOPIN0.5MG HSPRN.
[2021-10-15] MEDS ORDERED: CLONAZEPAM 0.5 MG TABLET PO PRN (21:30)
--- NOTE | 2021-10-15 22:01 | NUR ---
Klonopin 0.5mg hs prn given for pt for restlessness and for sleep. Tylenol prn 650 mg given as per pt request. Safety and comfort provided. Will continue to monitor.
--- NOTE | 2021-10-15 23:00 | NUR ---
CALLED DUSTIN (DAUGHTER OF PT) AND UPDATE HER REAGRDING HER MOTHER AND TOLD HER THAT THE DRLashawn ORDERED KLONOPIN. PT IS CURRENTLY SLEEPING AND IN NO ACUTE DISTRESS. WILL CONTINUE TO MONITOR.
--- NOTE | 2021-10-15 23:30 | NUR ---
Pt Klonopin effective. Pt resting and calmer. Pt in no acute distress. Will continue to monitor.
[2021-10-16] MEDS: PIPERACILLIN SODIUM/TAZOBACTAM 3.375 G in IV DEXTROSE 5% 100 ML IV SCH ×2 (00:55→08:14)
[2021-10-16] MEDS: IV 1/2NS 1000 ML 1,000 ML IV PRN (02:02)
[2021-10-16 04:06] VITALS: BP 140/46
[2021-10-16 06:04] LABS: HEMATOCRIT 30.7 % (31.2-41.9); MEAN CORPUSCULAR HEMOGLOBIN 28.9 uug (24.7-32.8); MEAN CORPUSCULAR VOLUME 88.7 fL (75.5-95.3); PLATELET COUNT (AUTO) 351 K/uL (179-408)
[2021-10-16] MEDS: PANTOPRAZOLE SODIUM 40 MG TABLET.DR PO SCH (06:19)
[2021-10-16 06:22] LABS: BILIRUBIN,TOTAL 0.2 mg/dL (0.2-1.0); CREATININE 0.9 mg/dL (0.6-1.3); MAGNESIUM 2.3 mg/dL (1.8-2.4); PHOSPHOROUS 2.3 mg/dL (2.5-4.9); POTASSIUM 3.7 mmol/L (3.5-5.1); TOTAL PROTEIN, SERUM 6.9 g/dL (6.4-8.2)
--- NOTE | 2021-10-16 06:25 | NUR ---
Pt slept intermittently. Pt in no acute distress. Iv intact. Pt assisted to the restroom. Prescribed medication given and pt tolerated it well. Safety and comfort provided. All needs are met. Pt vital signs within normal limit. Will endorse to incoming nurse for continuity of care.
[2021-10-16 11:42] VITALS: BP 118/46
--- NOTE | 2021-10-16 12:45 | NUR ---
PATIENT SEEN BY DR MORGAN WITH ORDER TO DISCHARGE HOME TODAY AND NOTED.
[2021-10-16] MEDS ORDERED: CEPH500C2 PO (12:57)
--- NOTE | 2021-10-16 13:00 | NUR ---
NOTED THAT PATIENT REMOVED HER MIDLINE STATED THAT SHE WAS TOLD THAT SHE COULD GO HOME SO SHE THOUGHT THAT SHE COULD REMOVE THINGS HERSELF NO BLEEDING AT THIS TIME PREPPING PATIENT FOR DISCHARGE.
--- NOTE | 2021-10-16 14:15 | NUR ---
CALLED AND SPOKE WITH PATIENTS DAUGHTER GINNY VIERA PATIENT IS READY TO GO HOME STATED THAT PATIENTS WILL BE COMING SOON WITH HER CLOTHES TO TAKE HER HOME.
--- NOTE | 2021-10-16 15:30 | NUR ---
PATIENT DISCHARGED PICKED UP BY HER IN SATISFACTORY CONDITION WITH DISCHARGE INSTRUCTIONS AND PATIENT INSTRUCTED TO TOOL MARKER HER ANTIBIOTICS FROM THE [facility] AND HER EXPRESSED UNDERSTANDING WAS ALSO INSTRUCTED TO FOLLOW UP WITH HER PRIMARY DOCTOR WITHIN THE NEXT ONE TO TWO WEEKS.
== END 2021-10-16 15:30 | disposition home or self-care (01) | DRG 917 ==
LOC: ER 19:06 → TELE3 10-14 04:00 → MEDSURG3 10-15 10:50
PROC: 05H533Z Insertion of Infusion Device into Right Subclavian Vein, Percutaneous Approach (ICD-10-PCS; principal; 2021-10-14)
PROC: B546ZZA Ultrasonography of Right Subclavian Vein, Guidance (ICD-10-PCS; 2021-10-14)
DX: T40.2X1A Poisoning by other opioids, accidental (unintentional), initial encounter (principal); G92.8 Other toxic encephalopathy; N39.0 Urinary tract infection, site not specified; E11.9 Type 2 diabetes mellitus without complications; E78.5 Hyperlipidemia, unspecified; G89.29 Other chronic pain; I10 Essential (primary) hypertension; I25.10 Atherosclerotic heart disease of native coronary artery without angina pectoris; J44.9 Chronic obstructive pulmonary disease, unspecified; K21.9 Gastro-esophageal reflux disease without esophagitis; Z79.01 Long term (current) use of anticoagulants; H54.61 Unqualified visual loss, right eye, normal vision left eye; Z20.822 Contact with and (suspected) exposure to COVID-19; Y92.009 Unspecified place in unspecified non-institutional (private) residence as the place of occurrence of the external cause; Z79.84 Long term (current) use of oral hypoglycemic drugs
CPT/HCPCS: 36415; 70030-TC; 70450; 71045; 83605; 83735; 84100; 84443; 84484; 85025; 85730; 87040; 87086; 93005; 97161; A4663; C1758; G0378; G0480; J2543; J3490; J7030; J7060

== ENCOUNTER 2023-11-30 19:34 | Inpatient (IN) | payer MEDICARE, OTHER ==
[~2023-11-30] VITALS: Ht 157.5 cm; Wt 65.8 kg
[~2023-11-30 19:34] MED LIST changes: +ACET-73 PO; -ALPR0.5T PO; -AMIO200T6 PO; -AMOX-430 PO; -ATOR10TA PO; +CEPH500C2 PO; +CLON0.5T4 PO; -DOCU-141 PO; -DONE10TA44 PO; +ESOM40CA PO; +ESTR1VAG VG; +EVOL140S2 SQ; -FLUT1BLS INH; +FURO20TA4 PO; -HYDR-3980 PO; -LEVO125T8 PO; +LEVO25TA9 PO; -LINA145C PO; +LINA290C PO; +METO25TA6 PO; -OLME1TAB19 PO; -OLOP2.5D12 RIGHTEYE; -OMEG-130 PO; -POTA8TAB3 PO; +RIVA10TA PO; -RIVA15TA PO
[2023-11-30 20:39] LABS: BASOPHILS # (AUTO) 0.1 K/UL (0.0-0.2); BASOPHILS % (AUTO) 1.4 % (0.0-2.0); EOSINOPHILS # (AUTO) 0.2 K/uL (0.0-0.7); EOSINOPHILS % (AUTO) 2.1 % (0.0-7.0); HEMATOCRIT 33.5 % (31.2-41.9); HEMOGLOBIN 11.2 g/dL (10.9-14.3); LYMPHOCYTES # (AUTO) 2.2 K/uL (0.8-4.8); LYMPHOCYTES % (AUTO) 23.4 % (20.5-51.5); MEAN CORPUSCULAR HEMOGLOBIN 28.3 uug (24.7-32.8); MEAN CORPUSCULAR HGB CONC 34 g/dL (32.3-35.6); MEAN CORPUSCULAR VOLUME 84.4 fL (75.5-95.3); MONOCYTES % (AUTO) 10.4 % (0.0-11.0); NEUTROPHILS # (AUTO) 5.8 K/uL (1.8-8.9); NEUTROPHILS % (AUTO) 62.7 % (38.5-71.5); PLATELET COUNT (AUTO) 422 K/uL (179-408); RED BLOOD CELL COUNT(AUTO) 3.97 MIL/uL (3.63-4.92); RED CELL DISTRIBUTION WIDTH 16.4 % (12.3-17.7); WHITE BLOOD COUNT (AUTO) 9.3 K/uL (3.8-11.8)
[2023-11-30 20:48] LABS: DIFFERENTIAL COMMENT 1
[2023-11-30 20:53] LABS: AMMONIA 26 umol/L (11-32)
[2023-11-30 21:08] LABS: ETHANOL < 3 MG/DL (0-10)
[2023-11-30 21:32] LABS: CARBON DIOXIDE 22 mmol/L (21-32); CHLORIDE 101 mmol/L (98-107); CREATININE 1.9 mg/dL (0.6-1.3); GLUCOSE 125 mg/dL (74-106); POTASSIUM 3.9 mmol/L (3.5-5.1); SODIUM SERUM 136 mmol/L (136-145); UREA NITROGEN, BLOOD 28 mg/dL (7-18)
[2023-11-30 21:41] LABS: ALANINE AMINOTRANSFERASE 14 U/L (14-59); ALBUMIN 3.5 g/dL (3.4-5.0); ALKALINE PHOSPHATASE 47 U/L (50-136); ASPARTATE AMINOTRANSFERASE 6 U/L (15-37); BILIRUBIN,TOTAL 0.3 mg/dL (0.2-1.0); TOTAL PROTEIN, SERUM 7.2 g/dL (6.4-8.2)
[2023-11-30 21:45] LABS: BILIRUBIN,DIRECT < 0.1 mg/dL (0.0-0.2)
[2023-11-30 21:46] LABS: ACETAMINOPHEN < 2.0 ug/mL (10-30)
[2023-11-30 21:52] LABS: THYROID STIMULATING HORMONE 1.688 mIU/mL (0.358-3.740)
[2023-11-30 22:14] LABS: *BILIRUBIN,URIN NEGATIVE (NEGATIVE); *BLOOD, URINE NEGATIVE (NEGATIVE); *CLARITY,URINE CLEAR (CLEAR); *COLOR,URINE YELLOW (YELLOW); *KETONES,URINE NEGATIVE (NEGATIVE); *PROTEIN,URINE NEGATIVE (NEGATIVE); *UROBILINOGEN,URINE 0.2 E.U./dl (NORMAL); LEUKOCYTE ESTERASE ,URINE 3+ (NEGATIVE); NITRITE, URINE NEGATIVE (NEGATIVE); UGLUCOSE NEGATIVE (NEGATIVE)
[2023-11-30 22:15] LABS: LACTIC ACID 2.7 mmol/L (0.4-2.0)
[2023-11-30] MEDS ORDERED: HALOPERIDOL LACTATE 5 MG/1 ML VIAL ONE (22:18)
[2023-11-30] MEDS ORDERED: diphenhydrAMINE 50 MG/1 ML VIAL ONE (22:18)
[2023-11-30] MEDS: HALOPERIDOL LACTATE 5 MG/1 ML VIAL IV ONE (22:23)
[2023-11-30] MEDS: diphenhydrAMINE 50 MG/1 ML VIAL IV ONE (22:23)
[2023-11-30] MEDS ORDERED: ACETAMINOPHEN ES 500 MG TABLET- SA PATIENTS-PAIN ONLY PO PRN (22:45)
[2023-11-30] MEDS ORDERED: MAGNESIUM HYDROXIDE 30 ML LIQUID UDC PO PRN (22:45)
[2023-11-30] MEDS ORDERED: ENOXAPARIN SODIUM 40 MG/0.4 ML DISP.SYRIN SQ SCH (22:45)
[2023-11-30] MEDS ORDERED: ONDANSETRON 4 MG/2 ML VIAL IV PRN (22:45)
[2023-11-30] MEDS ORDERED: REMEDY ESSENTIAL ZINC PASTE 113 GM TP PRN (22:45)
[2023-11-30] MEDS ORDERED: FUROSEMIDE 20 MG TABLET PO PRN (22:45)
[2023-11-30 22:50] LABS: *AMPHETAMINE, URINE NEGATIVE (NEGATIVE); *BARBITURATE, URINE NEGATIVE (NEGATIVE); *BENZODIAZEPINE, URINE POSITIVE (NEGATIVE); *CANNABINOID, URINE NEGATIVE (NEGATIVE); *COCCAINE, URINE NEGATIVE (NEGATIVE); *OPIATE, URINE NEGATIVE (NEGATIVE); *PHENCYCLIDINE SCREEN,URINE NEGATIVE (NEGATIVE)
[2023-11-30 22:53] LABS: FENTANYL, URINE NEGATIVE (NEGATIVE)
[2023-11-30] MEDS ORDERED: CEFTRIAXONE /D5W 50ML IVPB **ER PYXIS IV ONE (22:55)
[2023-11-30] MEDS: CEFTRIAXONE 2 G in IV DEXTROSE 5% 100 ML IV ONE (22:56)
[2023-11-30] MEDS: IV NORMAL SALINE 1000 ML BAG IV ONE (22:56)
[2023-11-30 23:31] LABS: BACTERIA,URINE FEW /HPF (NONE SEEN); RBC,URINE 0-3 /HPF (0-3); SQUAMOUS EPITHELIAL CELL,UR FEW /HPF (NONE SEEN); WBC,URINE 20-50 /HPF (0-3)
[2023-12-01 01:42] VITALS: BP 105/53; TEMP 98.2; O2SAT 96
[2023-12-01] MEDS ORDERED: MEROPENEM 500MG/NS 50ML PB ***ER PYXIS ONLY IV ONE (01:43)
[2023-12-01] MEDS: IV 1/2NS 1000 ML 1,000 ML IV PRN (01:50)
[2023-12-01] MEDS: MEROPENEM 500 MG in IV NORMAL SALINE 50 ML IV SCH ×2 (01:51→14:15)
[2023-12-01 07:02] LABS: BASOPHILS # (AUTO) 0.1 K/UL (0.0-0.2); BASOPHILS % (AUTO) 1.1 % (0.0-2.0); EOSINOPHILS # (AUTO) 0.2 K/uL (0.0-0.7); EOSINOPHILS % (AUTO) 3.4 % (0.0-7.0); HEMATOCRIT 30.8 % (31.2-41.9); HEMOGLOBIN 10.3 g/dL (10.9-14.3); LYMPHOCYTES # (AUTO) 1.4 K/uL (0.8-4.8); MEAN CORPUSCULAR HGB CONC 33 g/dL (32.3-35.6); MEAN CORPUSCULAR VOLUME 83.8 fL (75.5-95.3); MONOCYTES # (AUTO) 0.6 K/uL (0.1-1.30); MONOCYTES % (AUTO) 9.2 % (0.0-11.0); NEUTROPHILS # (AUTO) 4.4 K/uL (1.8-8.9); NEUTROPHILS % (AUTO) 65.3 % (38.5-71.5); PLATELET COUNT (AUTO) 354 K/uL (179-408); RED BLOOD CELL COUNT(AUTO) 3.68 MIL/uL (3.63-4.92); RED CELL DISTRIBUTION WIDTH 16.4 % (12.3-17.7); WHITE BLOOD COUNT (AUTO) 6.8 K/uL (3.8-11.8)
[2023-12-01] MEDS: LEVOTHYROXINE SODIUM 25 MCG TABLET PO SCH (07:04)
[2023-12-01 07:11] LABS: DIFFERENTIAL COMMENT 1
[2023-12-01 07:36] LABS: ALANINE AMINOTRANSFERASE 17 U/L (14-59); ALBUMIN 3.2 g/dL (3.4-5.0); ALKALINE PHOSPHATASE 44 U/L (50-136); ASPARTATE AMINOTRANSFERASE 9 U/L (15-37); BILIRUBIN,TOTAL 0.2 mg/dL (0.2-1.0); CALCIUM 8.4 mg/dL (8.5-10.1); CARBON DIOXIDE 26 mmol/L (21-32); CHLORIDE 107 mmol/L (98-107); CREATININE 1.7 mg/dL (0.6-1.3); GLUCOSE 98 mg/dL (74-106); MAGNESIUM 2.1 mg/dL (1.8-2.4); POTASSIUM 3.5 mmol/L (3.5-5.1); SODIUM SERUM 143 mmol/L (136-145); TOTAL PROTEIN, SERUM 6.6 g/dL (6.4-8.2); UREA NITROGEN, BLOOD 26 mg/dL (7-18)
[2023-12-01 07:48] VITALS: BP 127/60; TEMP 97.8; O2SAT 94
[2023-12-01] MEDS ORDERED: METFORMIN HCL 500 MG TABLET PO SCH (09:00)
[2023-12-01] MEDS ORDERED: Medication Not On Formulary EA (Linaclotide (Linzess) 290 MCG) PO SCH (09:00)
[2023-12-01] MEDS: METOPROLOL TARTRATE 25 MG TABLET PO SCH (09:00)
[2023-12-01] MEDS: CHOLECALCIFEROL 1,000 UNIT TABLET PO SCH (11:36)
[2023-12-01] MEDS: MEMANTINE HCL 5 MG TABLET PO SCH (11:38)
[2023-12-01] MEDS: DULOXETINE 60 MG CAPSULE.DR PO SCH (11:38)
[2023-12-01] MEDS: PANTOPRAZOLE SODIUM 40 MG TABLET.DR PO SCH (11:39)
[2023-12-01] MEDS ORDERED: OLME1TAB90 PO (13:36)
[2023-12-01] MEDS ORDERED: FAMO40TA7 PO (13:38)
[2023-12-01] MEDS ORDERED: EVOL140P3 SQ (13:40)
[2023-12-01] MEDS ORDERED: QUET25TA PO (13:42)
[2023-12-01] MEDS: HALOPERIDOL LACTATE 5 MG/1 ML VIAL IVP PRN (13:45)
[2023-12-01 14:37] VITALS: BP 149/70; TEMP 97.3; O2SAT 97
[2023-12-01 17:07] VITALS: BP 116/75; TEMP 98.3; O2SAT 96
[2023-12-01] MEDS: diphenhydrAMINE 50 MG/1 ML VIAL IV ONE (19:06)
[2023-12-01] MEDS: HALOPERIDOL LACTATE 5 MG/1 ML VIAL IVP ONE (19:07)
[2023-12-01 19:37] VITALS: BP 146/61; TEMP 98.1; O2SAT 97
[2023-12-01] MEDS: CLONAZEPAM 0.5 MG TABLET PO SCH (20:35)
[2023-12-01] MEDS: RIVAROXABAN 10 MG TABLET PO SCH (20:36)
[2023-12-01 23:50] VITALS: BP 143/63; TEMP 98; O2SAT 96
[2023-12-02 03:58] VITALS: BP 157/65; TEMP 98; O2SAT 96
[2023-12-02] MEDS: LINZESS 290 MCG PO SCH (06:05)
[2023-12-02 08:00] VITALS: BP 125/75; TEMP 98.2; O2SAT 99
[2023-12-02] MEDS: FEBUXOSTAT 40 MG PO SCH (10:49)
[2023-12-02] MEDS: [UNRECOGNIZED DRUG - OTHER] PO SCH (10:49)
[2023-12-02 11:26] LABS: BASOPHILS # (AUTO) 0.1 K/UL (0.0-0.2); BASOPHILS % (AUTO) 0.5 % (0.0-2.0); EOSINOPHILS % (AUTO) 0.2 % (0.0-7.0); HEMATOCRIT 33.1 % (31.2-41.9); HEMOGLOBIN 10.9 g/dL (10.9-14.3); LYMPHOCYTES # (AUTO) 0.9 K/uL (0.8-4.8); LYMPHOCYTES % (AUTO) 7.9 % (20.5-51.5); MEAN CORPUSCULAR HEMOGLOBIN 27.5 uug (24.7-32.8); MEAN CORPUSCULAR HGB CONC 33 g/dL (32.3-35.6); MEAN CORPUSCULAR VOLUME 83.7 fL (75.5-95.3); MONOCYTES # (AUTO) 0.8 K/uL (0.1-1.30); MONOCYTES % (AUTO) 6.5 % (0.0-11.0); NEUTROPHILS # (AUTO) 9.9 K/uL (1.8-8.9); NEUTROPHILS % (AUTO) 84.9 % (38.5-71.5); PLATELET COUNT (AUTO) 411 K/uL (179-408); RED BLOOD CELL COUNT(AUTO) 3.95 MIL/uL (3.63-4.92); RED CELL DISTRIBUTION WIDTH 16.7 % (12.3-17.7); WHITE BLOOD COUNT (AUTO) 11.6 K/uL (3.8-11.8)
[2023-12-02 11:39] LABS: CARBON DIOXIDE 26 mmol/L (21-32); CHLORIDE 106 mmol/L (98-107); GLUCOSE 145 mg/dL (74-106); POTASSIUM 3.9 mmol/L (3.5-5.1); SODIUM SERUM 143 mmol/L (136-145); UREA NITROGEN, BLOOD 14 mg/dL (7-18)
[2023-12-02 11:51] LABS: DIFFERENTIAL COMMENT 1
[2023-12-02 12:00] VITALS: BP 139/67; TEMP 98; O2SAT 100
[2023-12-02 12:52] LABS: ALANINE AMINOTRANSFERASE 21 U/L (14-59); ALBUMIN 3.3 g/dL (3.4-5.0); ALKALINE PHOSPHATASE 48 U/L (50-136); ASPARTATE AMINOTRANSFERASE 23 U/L (15-37); BILIRUBIN,TOTAL 0.7 mg/dL (0.2-1.0); MAGNESIUM 1.9 mg/dL (1.8-2.4); PHOSPHOROUS 2.8 mg/dL (2.5-4.9); TOTAL PROTEIN, SERUM 7.1 g/dL (6.4-8.2)
[2023-12-02 12:53] LABS: CHOLESTEROL 117 mg/dL (<200); HDL CHOLESTEROL 70 mg/dL (40-60); TRIGLYCERIDES 58 MG/DL (30-150)
[2023-12-02 16:00] VITALS: BP 143/93; TEMP 98.4; O2SAT 100
[2023-12-02] MEDS: RIVAROXABAN 10 MG TABLET PO SCH (21:19)
[2023-12-02 22:01] VITALS: BP 130/100; TEMP 98; O2SAT 98
[2023-12-03] VITALS (11 sets, daily range): BP systolic 102–154; BP diastolic 44–98; TEMP 97.6–98.7; O2SAT 95–98
[2023-12-03] MEDS: MEROPENEM 500 MG in IV NORMAL SALINE 50 ML IV SCH (01:05)
[2023-12-03] MEDS: ACETAMINOPHEN 325 MG TABLET PO PRN (01:25)
[2023-12-03] MEDS: QUETIAPINE FUMARATE 25 MG TABLET PO SCH (08:54)
[2023-12-03] MEDS: SERTRALINE HCL 50 MG TABLET PO SCH (08:54)
[2023-12-03] MEDS: AMIODARONE HCL IV 150 MG in IV DEXTROSE 5% 100 ML IV ONE (09:11)
[2023-12-03] MEDS: AMIODARONE HCL IV 450 MG in IV DEXTROSE 5% 250 ML IV PRN (10:06)
[2023-12-03] MEDS: OLANZAPINE 10 MG VIAL IM ONE (15:24)
[2023-12-04] VITALS (19 sets, daily range): BP systolic 125–159; BP diastolic 47–116; TEMP 97.5–98.8; O2SAT 95–100
[2023-12-04] MEDS ORDERED: MEROPENEM 500MG/NS 50ML PB ***ER PYXIS ONLY IV ONE (01:57)
[2023-12-04 04:48] LABS: BASOPHILS # (AUTO) 0.1 K/UL (0.0-0.2); BASOPHILS % (AUTO) 0.6 % (0.0-2.0); EOSINOPHILS # (AUTO) 0.3 K/uL (0.0-0.7); EOSINOPHILS % (AUTO) 2.5 % (0.0-7.0); HEMATOCRIT 35.2 % (31.2-41.9); HEMOGLOBIN 11.4 g/dL (10.9-14.3); LYMPHOCYTES # (AUTO) 1.4 K/uL (0.8-4.8); LYMPHOCYTES % (AUTO) 10.7 % (20.5-51.5); MEAN CORPUSCULAR HEMOGLOBIN 27.7 uug (24.7-32.8); MEAN CORPUSCULAR HGB CONC 33 g/dL (32.3-35.6); MEAN CORPUSCULAR VOLUME 85.1 fL (75.5-95.3); MONOCYTES # (AUTO) 0.9 K/uL (0.1-1.30); MONOCYTES % (AUTO) 6.8 % (0.0-11.0); NEUTROPHILS # (AUTO) 10.1 K/uL (1.8-8.9); NEUTROPHILS % (AUTO) 79.4 % (38.5-71.5); PLATELET COUNT (AUTO) 388 K/uL (179-408); RED BLOOD CELL COUNT(AUTO) 4.14 MIL/uL (3.63-4.92); RED CELL DISTRIBUTION WIDTH 17.1 % (12.3-17.7); WHITE BLOOD COUNT (AUTO) 12.7 K/uL (3.8-11.8)
[2023-12-04 04:58] LABS: DIFFERENTIAL COMMENT 1
[2023-12-04 05:13] LABS: CALCIUM 8.3 mg/dL (8.5-10.1); CREATININE 1.1 mg/dL (0.6-1.3); MAGNESIUM 1.8 mg/dL (1.8-2.4); PHOSPHOROUS 1.9 mg/dL (2.5-4.9); POTASSIUM 3.2 mmol/L (3.5-5.1)
[2023-12-04] MEDS: POTASSIUM PHOSPHATE MM 15 MMOL in IV NORMAL SALINE 250 ML IV ONE (07:35)
[2023-12-04] MEDS: MAGNESIUM SULFATE/D5W 100 ML IV SCH (07:56)
[2023-12-04] MEDS: AMIODARONE HCL IV 450 MG in IV DEXTROSE 5% 250 ML IV PRN (07:58)
[2023-12-04] MEDS: POTASSIUM CHLORIDE 20 MEQ TAB.PRT.SR PO SCH (10:55)
[2023-12-04] MEDS: MEROPENEM 1 G in IV NORMAL SALINE 100 ML IV SCH (13:17)
[2023-12-04] MEDS ORDERED: IPRATROPIUM BROMIDE 0.5 MG/2.5 ML NEBU ONE (14:21)
[2023-12-04] MEDS: GLUCERNA SHAKE 237 ML CAN PO SCH (17:04)
[2023-12-04] MEDS ORDERED: AMIODARONE HCL 150 MG/3 ML VIAL IV ONE (20:38)
[2023-12-04] MEDS: RIVAROXABAN 15 MG TABLET PO SCH (21:37)
[2023-12-05] VITALS (10 sets, daily range): BP systolic 93–159; BP diastolic 64–106; TEMP 98–98.8; O2SAT 93–99
[2023-12-05] MEDS: hydrALAZINE HCL 20 MG/1 ML VIAL IV PRN (04:15)
[2023-12-05] MEDS: METOPROLOL TARTRATE 25 MG TABLET PO ONE (10:25)
[2023-12-05] MEDS: DILTIAZEM HCL 30 MG TABLET PO SCH (10:26)
[2023-12-05] MEDS: METOPROLOL TARTRATE 25 MG TABLET PO SCH (17:27)
[2023-12-06] VITALS (23 sets, daily range): BP systolic 99–156; BP diastolic 54–111; TEMP 98–98.7; O2SAT 84–99
[2023-12-06 05:06] LABS: BASOPHILS % (AUTO) 0.2 % (0.0-2.0); EOSINOPHILS # (AUTO) 0.3 K/uL (0.0-0.7); HEMATOCRIT 36.4 % (31.2-41.9); HEMOGLOBIN 11.9 g/dL (10.9-14.3); LYMPHOCYTES # (AUTO) 1.6 K/uL (0.8-4.8); LYMPHOCYTES % (AUTO) 14.3 % (20.5-51.5); MEAN CORPUSCULAR HEMOGLOBIN 27.8 uug (24.7-32.8); MEAN CORPUSCULAR HGB CONC 33 g/dL (32.3-35.6); MEAN CORPUSCULAR VOLUME 84.6 fL (75.5-95.3); MONOCYTES # (AUTO) 1.2 K/uL (0.1-1.30); MONOCYTES % (AUTO) 10.9 % (0.0-11.0); NEUTROPHILS # (AUTO) 7.9 K/uL (1.8-8.9); NEUTROPHILS % (AUTO) 71.6 % (38.5-71.5); PLATELET COUNT (AUTO) 382 K/uL (179-408); RED CELL DISTRIBUTION WIDTH 16.9 % (12.3-17.7); WHITE BLOOD COUNT (AUTO) 11.1 K/uL (3.8-11.8)
[2023-12-06 05:13] LABS: DIFFERENTIAL COMMENT 1
[2023-12-06 05:17] LABS: CALCIUM 8.6 mg/dL (8.5-10.1); CARBON DIOXIDE 26 mmol/L (21-32); CHLORIDE 107 mmol/L (98-107); CREATININE 0.9 mg/dL (0.6-1.3); GLUCOSE 119 mg/dL (74-106); MAGNESIUM 1.9 mg/dL (1.8-2.4); PHOSPHOROUS 2.3 mg/dL (2.5-4.9); POTASSIUM 3.2 mmol/L (3.5-5.1); SODIUM SERUM 143 mmol/L (136-145); UREA NITROGEN, BLOOD 13 mg/dL (7-18)
[2023-12-06 05:25] LABS: ALBUMIN 2.9 g/dL (3.4-5.0); BILIRUBIN,DIRECT 0.2 mg/dL (0.0-0.2); TOTAL PROTEIN, SERUM 6.8 g/dL (6.4-8.2)
[2023-12-06] MEDS: POTASSIUM PHOSPHATE MM 15 MMOL in IV NORMAL SALINE 250 ML IV ONE (08:38)
[2023-12-06] MEDS: POTASSIUM CHLORIDE 50 ML IV SCH (08:40)
[2023-12-07] VITALS (23 sets, daily range): BP systolic 98–170; BP diastolic 58–109; TEMP 97.5–98.5; O2SAT 90–97
[2023-12-07 04:45] LABS: BASOPHILS # (AUTO) 0.1 K/UL (0.0-0.2); BASOPHILS % (AUTO) 1.1 % (0.0-2.0); EOSINOPHILS # (AUTO) 0.5 K/uL (0.0-0.7); EOSINOPHILS % (AUTO) 4.5 % (0.0-7.0); HEMATOCRIT 34.2 % (31.2-41.9); HEMOGLOBIN 11.4 g/dL (10.9-14.3); LYMPHOCYTES # (AUTO) 1.6 K/uL (0.8-4.8); LYMPHOCYTES % (AUTO) 15.5 % (20.5-51.5); MEAN CORPUSCULAR HEMOGLOBIN 27.9 uug (24.7-32.8); MEAN CORPUSCULAR HGB CONC 33 g/dL (32.3-35.6); MEAN CORPUSCULAR VOLUME 83.9 fL (75.5-95.3); MONOCYTES % (AUTO) 10.1 % (0.0-11.0); NEUTROPHILS % (AUTO) 68.8 % (38.5-71.5); PLATELET COUNT (AUTO) 403 K/uL (179-408); RED BLOOD CELL COUNT(AUTO) 4.07 MIL/uL (3.63-4.92); RED CELL DISTRIBUTION WIDTH 16.7 % (12.3-17.7); WHITE BLOOD COUNT (AUTO) 10.1 K/uL (3.8-11.8)
[2023-12-07 05:13] LABS: DIFFERENTIAL COMMENT 1
[2023-12-07 05:37] LABS: CALCIUM 8.2 mg/dL (8.5-10.1); CREATININE 0.9 mg/dL (0.6-1.3); MAGNESIUM 1.6 mg/dL (1.8-2.4); PHOSPHOROUS 2.5 mg/dL (2.5-4.9); POTASSIUM 3.4 mmol/L (3.5-5.1)
[2023-12-07] MEDS: POTASSIUM CHLORIDE 50 ML IV SCH (08:49)
[2023-12-07] MEDS: MAGNESIUM SULFATE/D5W 100 ML IV SCH (08:49)
[2023-12-07] MEDS: METOPROLOL TARTRATE 50 MG TABLET PO SCH (08:51)
[2023-12-07] MEDS ORDERED: METOPROLOL TARTRATE 25 MG TABLET PO SCH (09:00)
[2023-12-07] MEDS: DILTIAZEM HCL 30 MG TABLET PO SCH (12:00)
[2023-12-07] MEDS ORDERED: DILTIAZEM HCL 60 MG TABLET PO SCH ×2 (12:00)
[2023-12-07] MEDS ORDERED: DILTIAZEM HCL 30 MG TABLET PO SCH (12:00)
[2023-12-07] MEDS ORDERED: MAGNESIUM OXIDE 400 MG TABLET PO ONE (13:15)
[2023-12-07 18:32] LABS: *BILIRUBIN,URIN NEGATIVE (NEGATIVE); *BLOOD, URINE 3+ (NEGATIVE); *CLARITY,URINE CLEAR (CLEAR); *COLOR,URINE YELLOW (YELLOW); *KETONES,URINE NEGATIVE (NEGATIVE); *PROTEIN,URINE NEGATIVE (NEGATIVE); *UROBILINOGEN,URINE 0.2 E.U./dl (NORMAL); LEUKOCYTE ESTERASE ,URINE 3+ (NEGATIVE); NITRITE, URINE NEGATIVE (NEGATIVE); PH,URINE 5.5 (5.0-8.0); UGLUCOSE NEGATIVE (NEGATIVE)
[2023-12-07 18:57] LABS: BACTERIA,URINE MANY /HPF (NONE SEEN); RBC,URINE 20-50 /HPF (0-3); SQUAMOUS EPITHELIAL CELL,UR MANY /HPF (NONE SEEN); WBC,URINE 80-100 /HPF (0-3)
[2023-12-08] VITALS (25 sets, daily range): BP systolic 105–164; BP diastolic 56–103; TEMP 98–98.7; O2SAT 93–99
[2023-12-08 04:33] LABS: BASOPHILS # (AUTO) 0.1 K/UL (0.0-0.2); BASOPHILS % (AUTO) 1.1 % (0.0-2.0); EOSINOPHILS # (AUTO) 0.5 K/uL (0.0-0.7); EOSINOPHILS % (AUTO) 5.9 % (0.0-7.0); HEMATOCRIT 32.5 % (31.2-41.9); LYMPHOCYTES # (AUTO) 1.3 K/uL (0.8-4.8); MEAN CORPUSCULAR HEMOGLOBIN 28.3 uug (24.7-32.8); MEAN CORPUSCULAR HGB CONC 34 g/dL (32.3-35.6); MONOCYTES % (AUTO) 10.6 % (0.0-11.0); NEUTROPHILS # (AUTO) 6.3 K/uL (1.8-8.9); NEUTROPHILS % (AUTO) 68.4 % (38.5-71.5); PLATELET COUNT (AUTO) 388 K/uL (179-408); RED BLOOD CELL COUNT(AUTO) 3.87 MIL/uL (3.63-4.92); RED CELL DISTRIBUTION WIDTH 16.9 % (12.3-17.7); WHITE BLOOD COUNT (AUTO) 9.1 K/uL (3.8-11.8)
[2023-12-08 05:14] LABS: DIFFERENTIAL COMMENT 1
[2023-12-08 05:23] LABS: ALANINE AMINOTRANSFERASE 16 U/L (14-59); ALBUMIN 2.5 g/dL (3.4-5.0); ALKALINE PHOSPHATASE 45 U/L (50-136); ASPARTATE AMINOTRANSFERASE 15 U/L (15-37); BILIRUBIN,TOTAL 0.6 mg/dL (0.2-1.0); CARBON DIOXIDE 28 mmol/L (21-32); CHLORIDE 107 mmol/L (98-107); CREATININE 0.9 mg/dL (0.6-1.3); GLUCOSE 124 mg/dL (74-106); MAGNESIUM 2.2 mg/dL (1.8-2.4); PHOSPHOROUS 2.6 mg/dL (2.5-4.9); POTASSIUM 3.5 mmol/L (3.5-5.1); SODIUM SERUM 144 mmol/L (136-145); TOTAL PROTEIN, SERUM 6.1 g/dL (6.4-8.2); UREA NITROGEN, BLOOD 10 mg/dL (7-18)
[2023-12-08] MEDS: MINERAL OIL/PETROLAT OPHT OINT 3.5 GM TUBE EACHEYE SCH (05:58)
[2023-12-08] MEDS ORDERED: BISACODYL 10 MG SUPP.RECT RC PRN (12:30)
[2023-12-08] MEDS: QUETIAPINE FUMARATE 25 MG TABLET PO PRN (15:40)
[2023-12-09] VITALS: BP 122/76; TEMP 98.4; O2SAT 97
[2023-12-09 04:00] VITALS: BP 119/79; TEMP 97.9; O2SAT 97
[2023-12-09 07:32] VITALS: BP 131/70; TEMP 99.1; O2SAT 97
[2023-12-09 11:40] VITALS: BP 106/76; TEMP 98.8; O2SAT 100
[2023-12-09] MEDS ORDERED: DILTIAZEM HCL 30 MG TABLET PO SCH (12:00)
[2023-12-09] MEDS: LINZESS 290 MCG PO SCH (12:09)
[2023-12-09] MEDS: DILTIAZEM HCL 60 MG TABLET PO SCH (12:24)
[2023-12-09 15:40] VITALS: BP 113/73; TEMP 99.1; O2SAT 99
[2023-12-09] MEDS: POLYVINYL ALCOHOL OPHT DROPS 15 ML BOTTLE EACHEYE SCH (17:45)
[2023-12-09] MEDS: DILTIAZEM HCL 30 MG TABLET PO SCH (17:47)
[2023-12-09 20:38] VITALS: BP 122/56; TEMP 98.4; O2SAT 95
[2023-12-10 00:01] VITALS: BP 146/64; TEMP 98.3; O2SAT 95
[2023-12-10 04:05] VITALS: BP 134/84; TEMP 98.4; O2SAT 93
[2023-12-10 06:09] LABS: BASOPHILS # (AUTO) 0.2 K/UL (0.0-0.2); BASOPHILS % (AUTO) 2.5 % (0.0-2.0); EOSINOPHILS # (AUTO) 0.1 K/uL (0.0-0.7); EOSINOPHILS % (AUTO) 1.2 % (0.0-7.0); HEMATOCRIT 35.1 % (31.2-41.9); HEMOGLOBIN 11.7 g/dL (10.9-14.3); LYMPHOCYTES # (AUTO) 1.7 K/uL (0.8-4.8); MEAN CORPUSCULAR HGB CONC 34 g/dL (32.3-35.6); MEAN CORPUSCULAR VOLUME 83.5 fL (75.5-95.3); MONOCYTES # (AUTO) 0.8 K/uL (0.1-1.30); MONOCYTES % (AUTO) 8.7 % (0.0-11.0); NEUTROPHILS # (AUTO) 6.5 K/uL (1.8-8.9); NEUTROPHILS % (AUTO) 69.6 % (38.5-71.5); PLATELET COUNT (AUTO) 474 K/uL (179-408); RED CELL DISTRIBUTION WIDTH 17.3 % (12.3-17.7); WHITE BLOOD COUNT (AUTO) 9.4 K/uL (3.8-11.8)
[2023-12-10 06:21] LABS: DIFFERENTIAL COMMENT 1
[2023-12-10 06:30] LABS: CALCIUM 8.9 mg/dL (8.5-10.1); MAGNESIUM 1.9 mg/dL (1.8-2.4); PHOSPHOROUS 3.8 mg/dL (2.5-4.9); POTASSIUM 2.9 mmol/L (3.5-5.1)
[2023-12-10 08:00] VITALS: BP 139/74; TEMP 97.6; O2SAT 99
[2023-12-10 08:09] VITALS: BP 139/74; TEMP 97.6; O2SAT 99
[2023-12-10] MEDS ORDERED: POTASSIUM CHLORIDE 20 MEQ TAB.PRT.SR PO ONE (09:15)
[2023-12-10] MEDS: POTASSIUM CHLORIDE 20 MEQ POWDER PACKET PO ONE (09:36)
[2023-12-10 11:56] VITALS: BP 137/66; TEMP 97.6; O2SAT 96
[2023-12-10] MEDS ORDERED: RIVA15TA PO (15:16)
[2023-12-10] MEDS ORDERED: QUET25TA PO ×2 (15:17→15:18)
[2023-12-10] MEDS ORDERED: PANT40TA2 PO (15:19)
[2023-12-10] MEDS ORDERED: METO50TA16 PO (15:22)
[2023-12-10] MEDS ORDERED: DILT30TA35 PO (15:24)
[2023-12-10] MEDS ORDERED: POTA10CA43 PO (15:24)
[2023-12-10] MEDS ORDERED: NUT.237L36 PO (15:26)
[2023-12-10] MEDS ORDERED: BISA10SU61 RC (15:27)
[2023-12-10] MEDS ORDERED: DEXT1DRO3 EACHEYE (15:28)
[2023-12-10] MEDS ORDERED: SERT25TA PO (15:29)
[2023-12-10 16:00] VITALS: BP 151/70; TEMP 97.6; O2SAT 98
[2023-12-11] MEDS ORDERED: POTASSIUM CHLORIDE 10 MEQ TAB.PRT.SR PO SCH (09:00)
[2023-12-14 08:00] VITALS: BP 155/73; TEMP 97.6; O2SAT 97
== END 2023-12-10 18:47 | DRG 871 ==
LOC: ER 19:38 → TELE3 22:26 → CCU 12-03 12:00 → TELE3 12-08 18:09
PROVIDERS: ADMIT Internal Medicine; ATTEND Internal Medicine
PROC: 05HC33Z Insertion of Infusion Device into Left Basilic Vein, Percutaneous Approach (ICD-10-PCS; principal; 2023-12-01)
PROC: 05HB33Z Insertion of Infusion Device into Right Basilic Vein, Percutaneous Approach (ICD-10-PCS; 2023-12-06)
DX: A41.9 Sepsis, unspecified organism (principal); G92.8 Other toxic encephalopathy; N17.0 Acute kidney failure with tubular necrosis; N39.0 Urinary tract infection, site not specified; I48.92 Unspecified atrial flutter; I13.0 Hypertensive heart and chronic kidney disease with heart failure and stage 1 through stage 4 chronic kidney disease, or unspecified chronic kidney disease; E87.20 Acidosis, unspecified; F03.C3 Unspecified dementia, severe, with mood disturbance; F03.C4 Unspecified dementia, severe, with anxiety; D68.59 Other primary thrombophilia; I48.19 Other persistent atrial fibrillation; I50.32 Chronic diastolic (congestive) heart failure; E44.0 Moderate protein-calorie malnutrition; I48.0 Paroxysmal atrial fibrillation; Z78.1 Physical restraint status; J44.9 Chronic obstructive pulmonary disease, unspecified; I25.10 Atherosclerotic heart disease of native coronary artery without angina pectoris; N18.9 Chronic kidney disease, unspecified; K21.9 Gastro-esophageal reflux disease without esophagitis; E83.51 Hypocalcemia; E87.6 Hypokalemia; E78.5 Hyperlipidemia, unspecified; E83.39 Other disorders of phosphorus metabolism; E83.42 Hypomagnesemia; E11.22 Type 2 diabetes mellitus with diabetic chronic kidney disease; H54.8 Legal blindness, as defined in USA; K42.9 Umbilical hernia without obstruction or gangrene; E03.9 Hypothyroidism, unspecified; M50.10 Cervical disc disorder with radiculopathy, unspecified cervical region; E88.09 Other disorders of plasma-protein metabolism, not elsewhere classified; Z79.4 Long term (current) use of insulin; Z87.891 Personal history of nicotine dependence; Z94.7 Corneal transplant status; Z79.890 Hormone replacement therapy; Z79.01 Long term (current) use of anticoagulants; Z79.899 Other long term (current) drug therapy; Z79.84 Long term (current) use of oral hypoglycemic drugs; Z86.73 Personal history of transient ischemic attack (TIA), and cerebral infarction without residual deficits
CPT/HCPCS: 36415; 70450; 71045; 83605; 83735; 84100; 84443; 84484; 85025; 85730; 87040; 93005; 93307; A4606; A4663; A6213; C1758; G0378; G0480; J0282; J0360; J0696; J1200; J1630; J2185; J2358; J3475; J3480; J3490; J3590; J7040; J7050

== ENCOUNTER 2023-12-10 14:30 | Inpatient (IN) | payer MEDICARE, OTHER ==
[~2023-12-10] VITALS: Ht 157.5 cm; Wt 64.4 kg
[~2023-12-10 14:30] MED LIST changes: -CEPH500C2 PO; +FAMO40TA7 PO; +OLME1TAB90 PO; +QUET25TA PO
[2023-12-10] MEDS ORDERED: RIVA15TA PO (15:16)
[2023-12-10] MEDS ORDERED: QUET25TA PO ×2 (15:17→15:18)
[2023-12-10] MEDS ORDERED: PANT40TA2 PO (15:19)
[2023-12-10] MEDS ORDERED: METO50TA16 PO (15:22)
[2023-12-10] MEDS ORDERED: DILT30TA35 PO (15:24)
[2023-12-10] MEDS ORDERED: POTA10CA43 PO (15:24)
[2023-12-10] MEDS ORDERED: NUT.237L36 PO (15:26)
[2023-12-10] MEDS ORDERED: BISA10SU61 RC (15:27)
[2023-12-10] MEDS ORDERED: DEXT1DRO3 EACHEYE (15:28)
[2023-12-10] MEDS ORDERED: SERT25TA PO (15:29)
[2023-12-10] MEDS ORDERED: BISACODYL 10 MG SUPP.RECT RC PRN (16:45)
[2023-12-10] MEDS ORDERED: GLUCERNA 1.2 1000ML LIQUID PO SCH (17:00)
[2023-12-10] MEDS: GLUCERNA SHAKE 237 ML CAN PO SCH (19:00)
[2023-12-10] MEDS: METOPROLOL TARTRATE 50 MG TABLET PO SCH (19:00)
[2023-12-10] MEDS: MEMANTINE HCL 10 MG TABLET PO SCH (19:00)
[2023-12-10] MEDS: QUETIAPINE FUMARATE 25 MG TABLET PO SCH (19:00)
[2023-12-10] MEDS: POLYVINYL ALCOHOL OPHT DROPS 15 ML BOTTLE EACHEYE SCH (19:00)
[2023-12-10 20:13] VITALS: BP 130/70; TEMP 97.8; O2SAT 95
[2023-12-10] MEDS: CLONAZEPAM 0.5 MG TABLET PO SCH (21:00)
[2023-12-10] MEDS: RIVAROXABAN 15 MG TABLET PO SCH (21:00)
[2023-12-10] MEDS: DILTIAZEM HCL 30 MG TABLET PO SCH (22:45)
[2023-12-11 05:18] VITALS: BP 128/55; TEMP 97.7; O2SAT 95
[2023-12-11] MEDS: DILTIAZEM HCL 30 MG TABLET PO ONE (05:56)
[2023-12-11] MEDS: LEVOTHYROXINE SODIUM 25 MCG TABLET PO SCH (07:00)
[2023-12-11] MEDS ORDERED: Medication Not On Formulary EA (Sertraline Hcl (Zoloft) 25 MG) PO SCH (09:00)
[2023-12-11] MEDS: POTASSIUM CHLORIDE 10 MEQ TAB.PRT.SR PO SCH (10:13)
[2023-12-11] MEDS: SERTRALINE HCL 50 MG TABLET PO SCH (10:15)
[2023-12-11] MEDS: DILTIAZEM HCL 30 MG TABLET PO SCH (12:25)
[2023-12-11 15:33] VITALS: BP 113/46; TEMP 97.5; O2SAT 96
[2023-12-11 19:35] VITALS: BP 120/55; TEMP 97.8; O2SAT 95
[2023-12-12 06:39] LABS: BASOPHILS # (AUTO) 0.1 K/UL (0.0-0.2); BASOPHILS % (AUTO) 1.2 % (0.0-2.0); EOSINOPHILS # (AUTO) 0.3 K/uL (0.0-0.7); EOSINOPHILS % (AUTO) 3.5 % (0.0-7.0); HEMATOCRIT 32.8 % (31.2-41.9); LYMPHOCYTES # (AUTO) 1.7 K/uL (0.8-4.8); LYMPHOCYTES % (AUTO) 21.1 % (20.5-51.5); MEAN CORPUSCULAR HEMOGLOBIN 27.9 uug (24.7-32.8); MEAN CORPUSCULAR HGB CONC 33 g/dL (32.3-35.6); MEAN CORPUSCULAR VOLUME 83.6 fL (75.5-95.3); MONOCYTES # (AUTO) 0.9 K/uL (0.1-1.30); MONOCYTES % (AUTO) 10.6 % (0.0-11.0); NEUTROPHILS # (AUTO) 5.2 K/uL (1.8-8.9); NEUTROPHILS % (AUTO) 63.6 % (38.5-71.5); PLATELET COUNT (AUTO) 478 K/uL (179-408); RED BLOOD CELL COUNT(AUTO) 3.93 MIL/uL (3.63-4.92); RED CELL DISTRIBUTION WIDTH 16.7 % (12.3-17.7); WHITE BLOOD COUNT (AUTO) 8.2 K/uL (3.8-11.8)
[2023-12-12 06:47] LABS: DIFFERENTIAL COMMENT 1
[2023-12-12 06:55] LABS: BILIRUBIN,TOTAL 0.6 mg/dL (0.2-1.0); CREATININE 0.9 mg/dL (0.6-1.3); MAGNESIUM 1.7 mg/dL (1.8-2.4); PHOSPHOROUS 3.4 mg/dL (2.5-4.9); TOTAL PROTEIN, SERUM 6.8 g/dL (6.4-8.2); URIC ACID 2.1 mg/dL (2.6-6.0)
[2023-12-12 07:02] LABS: CALCIUM 8.6 mg/dL (8.5-10.1)
[2023-12-12 07:13] VITALS: BP 114/41; TEMP 97.4; O2SAT 95
[2023-12-12] MEDS: POTASSIUM CHLORIDE 20 MEQ TAB.PRT.SR PO ONE (14:28)
[2023-12-12] MEDS: MAGNESIUM OXIDE 400 MG TABLET PO ONE (14:29)
[2023-12-12 16:48] VITALS: BP_SYST 125; BP_SYST 97; BP_DIAS 45; BP_DIAS 57; TEMP 97.8; O2SAT 94
[2023-12-12 20:22] VITALS: BP 105/48; TEMP 98.4; O2SAT 99
[2023-12-12] MEDS: ACETAMINOPHEN 325 MG TABLET PO PRN (23:31)
[2023-12-13 06:26] VITALS: BP 151/83; TEMP 97.4; O2SAT 95
[2023-12-13] MEDS: DILTIAZEM HCL CD 120 MG CAP.SR.24H PO SCH (09:39)
[2023-12-13 12:57] LABS: CALCIUM 9.2 mg/dL (8.5-10.1); CREATININE 0.9 mg/dL (0.6-1.3); POTASSIUM 3.3 mmol/L (3.5-5.1)
[2023-12-13 15:39] VITALS: BP 161/98; TEMP 97.5; O2SAT 100
[2023-12-13] MEDS ORDERED: QUETIAPINE FUMARATE 25 MG TABLET PO PRN (20:15)
[2023-12-13 20:55] VITALS: BP 151/84; TEMP 97.3; O2SAT 97
[2023-12-13] MEDS ORDERED: ACETAMINOPHEN ES 500 MG TABLET PO PRN (23:30)
[2023-12-14 03:54] VITALS: BP 159/83; TEMP 97.8; O2SAT 98
[2023-12-14 04:37] VITALS: BP 159/83; TEMP 98.7; O2SAT 98
[2023-12-14 08:00] VITALS: BP 155/73; TEMP 98.7; O2SAT 97
[2023-12-14 16:00] VITALS: BP 123/68; TEMP 97.6; O2SAT 97
[2023-12-15 13:34] LABS: CALCIUM 8.8 mg/dL (8.5-10.1); POTASSIUM 3.3 mmol/L (3.5-5.1)
[2023-12-15] MEDS ORDERED: ACETAMINOPHEN 325 MG TABLET PO PRN (14:30)
[2023-12-15] MEDS ORDERED: hydrALAZINE HCL 25 MG TABLET PO PRN (14:45)
[2023-12-15 16:00] VITALS: BP 129/74; TEMP 98; O2SAT 94
[2023-12-15 20:41] VITALS: BP 121/61; TEMP 98.5; O2SAT 96
[2023-12-16 05:40] VITALS: BP 122/73; TEMP 97.7; O2SAT 96
[2023-12-16] MEDS: PANTOPRAZOLE SODIUM 40 MG TABLET.DR PO SCH (06:41)
[2023-12-16 08:15] VITALS: BP 124/71; TEMP 97.6; O2SAT 96
[2023-12-16 08:34] VITALS: BP 124/71
[2023-12-16] MEDS: POTASSIUM CHLORIDE 20 MEQ TAB.PRT.SR PO SCH (08:34)
[2023-12-16] MEDS: REMEDY ESSENTIAL ZINC PASTE 113 GM TOP PRN (08:35)
== END 2023-12-16 13:40 | disposition home health service (06) | DRG 308 ==
PROVIDERS: ADMIT Physical Medicine & Rehabilitation Pain Medicine; ATTEND Physical Medicine & Rehabilitation Pain Medicine
DX: I48.0 Paroxysmal atrial fibrillation (principal); G92.8 Other toxic encephalopathy; N17.0 Acute kidney failure with tubular necrosis; E44.0 Moderate protein-calorie malnutrition; I13.0 Hypertensive heart and chronic kidney disease with heart failure and stage 1 through stage 4 chronic kidney disease, or unspecified chronic kidney disease; F03.93 Unspecified dementia, unspecified severity, with mood disturbance; F03.94 Unspecified dementia, unspecified severity, with anxiety; R00.8 Other abnormalities of heart beat; R53.1 Weakness; E11.22 Type 2 diabetes mellitus with diabetic chronic kidney disease; I50.9 Heart failure, unspecified; N18.9 Chronic kidney disease, unspecified; J44.9 Chronic obstructive pulmonary disease, unspecified; I25.10 Atherosclerotic heart disease of native coronary artery without angina pectoris; I48.92 Unspecified atrial flutter; D64.9 Anemia, unspecified; E03.9 Hypothyroidism, unspecified; E88.09 Other disorders of plasma-protein metabolism, not elsewhere classified; F32.A Depression, unspecified; G89.29 Other chronic pain; H54.8 Legal blindness, as defined in USA; K21.9 Gastro-esophageal reflux disease without esophagitis; Z87.440 Personal history of urinary (tract) infections; Z87.891 Personal history of nicotine dependence; Z94.7 Corneal transplant status; Z68.26 Body mass index [BMI] 26.0-26.9, adult; M54.2 Cervicalgia; M54.9 Dorsalgia, unspecified; M10.9 Gout, unspecified; M06.9 Rheumatoid arthritis, unspecified
CPT/HCPCS: 36415; 83735; 84100; 84550; 85025; 97535-GO-CO; A4663

== ENCOUNTER 2024-02-10 12:32 | Inpatient (IN) | payer MEDICARE, OTHER ==
[~2024-02-10] VITALS: Ht 160 cm; Wt 61.2 kg
[2024-02-10] VITALS (9 sets, daily range): BP systolic 108–141; BP diastolic 43–84; TEMP 97.3–99
[~2024-02-10 12:32] MED LIST changes: +BISA10SU61 RC; +DEXT1DRO3 EACHEYE; +DILT30TA35 PO; -DULO60CA45 PO; -ESOM40CA PO; -ESTR1VAG VG; -EVOL140S2 SQ; -FAMO40TA7 PO; -FURO20TA4 PO; -METF-440 PO; -METO25TA6 PO; +METO50TA16 PO; +NUT.237L36 PO; -OLME1TAB90 PO; +PANT40TA2 PO; +POTA10CA43 PO; -RIVA10TA PO; +RIVA15TA PO; +SERT25TA PO
[2024-02-10 12:55] LABS: BASOPHILS # (AUTO) 0.1 K/UL (0.0-0.2); BASOPHILS % (AUTO) 1.2 % (0.0-2.0); DIFFERENTIAL COMMENT 0; EOSINOPHILS # (AUTO) 0.1 K/uL (0.0-0.7); EOSINOPHILS % (AUTO) 1.5 % (0.0-7.0); LYMPHOCYTES # (AUTO) 1.5 K/uL (0.8-4.8); LYMPHOCYTES % (AUTO) 30.2 % (20.5-51.5); MEAN CORPUSCULAR HEMOGLOBIN 20.4 uug (24.7-32.8); MEAN CORPUSCULAR HGB CONC 29 g/dL (32.3-35.6); MEAN CORPUSCULAR VOLUME 69.6 fL (75.5-95.3); MONOCYTES # (AUTO) 0.5 K/uL (0.1-1.30); MONOCYTES % (AUTO) 10.9 % (0.0-11.0); NEUTROPHILS # (AUTO) 2.7 K/uL (1.8-8.9); NEUTROPHILS % (AUTO) 56.2 % (38.5-71.5); PLATELET COUNT (AUTO) 446 K/uL (179-408); RED CELL DISTRIBUTION WIDTH 21.3 % (12.3-17.7); WHITE BLOOD COUNT (AUTO) 4.9 K/uL (3.8-11.8)
[2024-02-10 13:36] LABS: IRON, SERUM 164 ug/dL (50-175)
[2024-02-10 13:46] LABS: ALANINE AMINOTRANSFERASE 21 U/L (14-59); ALBUMIN 3.3 g/dL (3.4-5.0); ALKALINE PHOSPHATASE 47 U/L (50-136); ASPARTATE AMINOTRANSFERASE 6 U/L (15-37); BILIRUBIN,TOTAL 0.4 mg/dL (0.2-1.0); CALCIUM 8.7 mg/dL (8.5-10.1); CARBON DIOXIDE 26 mmol/L (21-32); CHLORIDE 106 mmol/L (98-107); CREATININE 1.1 mg/dL (0.6-1.3); GLUCOSE 144 mg/dL (74-106); HEMATOCRIT 14.4 % (31.2-41.9); HEMOGLOBIN 4.2 g/dL (10.9-14.3); NT-PRO BNP 1288 pg/mL (0-125); POTASSIUM 4.1 mmol/L (3.5-5.1); RED BLOOD CELL COUNT(AUTO) 2.07 MIL/uL (3.63-4.92); SODIUM SERUM 141 mmol/L (136-145); TOTAL PROTEIN, SERUM 6.7 g/dL (6.4-8.2); UREA NITROGEN, BLOOD 22 mg/dL (7-18)
[2024-02-10 17:43] LABS: BASOPHILS % (MANUAL) 0 % (0-2); EOSINOPHILS % (MANUAL) 0 % (0-8); LYMPHOCYTES % (MANUAL) 30 % (20-40); MONOCYTES % (MANUAL) 10 % (2-10); NEUTROPHILS % (MANUAL) 60 % (42-75)
[2024-02-10] MEDS: FUROSEMIDE 20 MG/2 ML VIAL IV ONE (18:32)
[2024-02-10] MEDS ORDERED: BISACODYL 10 MG SUPP.RECT RC PRN (18:45)
[2024-02-10] MEDS: DILTIAZEM HCL 30 MG TABLET PO ONE ×2 (19:49→21:48)
[2024-02-10] MEDS ORDERED: ONDANSETRON 4 MG/2 ML VIAL IV PRN (20:00)
[2024-02-10 20:12] LABS: *BILIRUBIN,URIN NEGATIVE (NEGATIVE); *BLOOD, URINE NEGATIVE (NEGATIVE); *CLARITY,URINE CLEAR (CLEAR); *COLOR,URINE YELLOW (YELLOW); *KETONES,URINE NEGATIVE (NEGATIVE); *PROTEIN,URINE NEGATIVE (NEGATIVE); *UROBILINOGEN,URINE 0.2 E.U./dl (NORMAL); LEUKOCYTE ESTERASE ,URINE 1+ (NEGATIVE); NITRITE, URINE NEGATIVE (NEGATIVE); PH,URINE 6.5 (5.0-8.0); UGLUCOSE NEGATIVE (NEGATIVE)
[2024-02-10] MEDS: CLONAZEPAM 0.5 MG TABLET PO SCH (20:24)
[2024-02-10] MEDS: FUROSEMIDE 20 MG/2 ML VIAL IV PRN (21:27)
[2024-02-10] MEDS: QUETIAPINE FUMARATE 25 MG TABLET PO PRN (21:49)
[2024-02-11 00:06] VITALS: BP 140/68; TEMP 99.2
[2024-02-11] MEDS: ACETAMINOPHEN 325 MG TABLET PO PRN (00:07)
[2024-02-11] MEDS ORDERED: CEFTRIAXONE /D5W 50ML IVPB **ER PYXIS IV ONE (01:27)
[2024-02-11 02:10] VITALS: BP 141/68; TEMP 98.2
[2024-02-11 02:11] VITALS: BP 141/68; TEMP 98.2
[2024-02-11] MEDS: CEFTRIAXONE 1 G in IV DEXTROSE 5% 50 ML IV SCH (02:20)
[2024-02-11] MEDS: HYDROCODONE/APAP 10-325 MG TABLET PO PRN (03:03)
[2024-02-11] MEDS: LEVOTHYROXINE SODIUM 25 MCG TABLET PO SCH (06:24)
[2024-02-11 08:00] VITALS: BP 109/55; TEMP 97.8; O2SAT 91
[2024-02-11 08:10] LABS: BASOPHILS # (AUTO) 0.1 K/UL (0.0-0.2); BASOPHILS % (AUTO) 0.7 % (0.0-2.0); EOSINOPHILS % (AUTO) 0.1 % (0.0-7.0); HEMOGLOBIN 7.7 g/dL (10.9-14.3); LYMPHOCYTES # (AUTO) 1.8 K/uL (0.8-4.8); LYMPHOCYTES % (AUTO) 18.3 % (20.5-51.5); MEAN CORPUSCULAR HEMOGLOBIN 23.5 uug (24.7-32.8); MEAN CORPUSCULAR HGB CONC 31 g/dL (32.3-35.6); MEAN CORPUSCULAR VOLUME 75.7 fL (75.5-95.3); MONOCYTES # (AUTO) 0.8 K/uL (0.1-1.30); NEUTROPHILS # (AUTO) 7.1 K/uL (1.8-8.9); NEUTROPHILS % (AUTO) 72.9 % (38.5-71.5); PLATELET COUNT (AUTO) 424 K/uL (179-408); WHITE BLOOD COUNT (AUTO) 9.7 K/uL (3.8-11.8)
[2024-02-11] MEDS: SERTRALINE HCL 50 MG TABLET PO SCH (08:13)
[2024-02-11 08:14] LABS: CALCIUM 8.6 mg/dL (8.5-10.1); CARBON DIOXIDE 30 mmol/L (21-32); CHLORIDE 107 mmol/L (98-107); CREATININE 1.1 mg/dL (0.6-1.3); GLUCOSE 134 mg/dL (74-106); MAGNESIUM 2.1 mg/dL (1.8-2.4); PHOSPHOROUS 4.9 mg/dL (2.5-4.9); POTASSIUM 3.3 mmol/L (3.5-5.1); SODIUM SERUM 144 mmol/L (136-145); UREA NITROGEN, BLOOD 15 mg/dL (7-18)
[2024-02-11] MEDS: MEMANTINE HCL 10 MG TABLET PO SCH (08:14)
[2024-02-11] MEDS: PANTOPRAZOLE SODIUM 40 MG TABLET.DR PO SCH ×2 (08:14→16:12)
[2024-02-11] MEDS: DILTIAZEM HCL CD 120 MG CAP.SR.24H PO SCH (08:21)
[2024-02-11 08:25] LABS: THYROID STIMULATING HORMONE 1.337 mIU/mL (0.358-3.740)
[2024-02-11 08:44] LABS: DIFFERENTIAL COMMENT 1
[2024-02-11] MEDS: POTASSIUM CHLORIDE 20 MEQ TAB.PRT.SR PO ONE (09:26)
[2024-02-11] MEDS ORDERED: QUET25TA PO ×2 (11:16→11:17)
[2024-02-11] MEDS ORDERED: MEMA5TAB42 PO (11:19)
[2024-02-11] MEDS ORDERED: ESOM40CA PO (11:20)
[2024-02-11] MEDS ORDERED: DILT-2 PO (11:23)
[2024-02-11] MEDS: MEMANTINE HCL 5 MG TABLET PO SCH (11:42)
[2024-02-11 12:00] VITALS: BP 96/42; O2SAT 90
[2024-02-11 14:38] LABS: HEMATOCRIT 26.3 % (31.2-41.9)
[2024-02-11] MEDS ORDERED: BLOOD SUGAR DIAGNOSTIC 1 EACH STRIP VI SCH (17:00)
[2024-02-11] MEDS ORDERED: MEMANTINE HCL 10 MG TABLET PO SCH (17:00)
[2024-02-11] MEDS ORDERED: DEXTROSE 50% 50 ML DISP.SYRIN IV PRN (17:00)
[2024-02-11] MEDS ORDERED: INSULIN REGULAR, HUMAN 300 UNITS/3 ML VIAL SQ PRN (17:00)
[2024-02-11] MEDS ORDERED: INSULIN REGULAR, HUMAN 300 UNIT/3 ML VIAL SQ PRN (17:00)
[2024-02-11 20:00] VITALS: BP 143/65; TEMP 98.3; O2SAT 95
[2024-02-12] VITALS: BP 132/56; TEMP 98; O2SAT 95
[2024-02-12] MEDS: METOPROLOL TARTRATE 50 MG TABLET PO SCH (01:07)
[2024-02-12 09:00] VITALS: BP 130/70
[2024-02-12 09:30] LABS: HEMOGLOBIN 9.3 g/dL (10.9-14.3); RED BLOOD CELL COUNT(AUTO) 3.93 MIL/uL (3.63-4.92)
[2024-02-12 09:31] LABS: HEMATOCRIT 30.8 % (31.2-41.9); MEAN CORPUSCULAR HEMOGLOBIN 23.5 uug (24.7-32.8); MEAN CORPUSCULAR HGB CONC 30 g/dL (32.3-35.6); MEAN CORPUSCULAR VOLUME 78.3 fL (75.5-95.3); RED CELL DISTRIBUTION WIDTH 21.3 % (12.3-17.7)
[2024-02-12 09:32] LABS: BASOPHILS % (AUTO) 0.9 % (0.0-2.0); EOSINOPHILS % (AUTO) 1.3 % (0.0-7.0); LYMPHOCYTES % (AUTO) 9.4 % (20.5-51.5); MONOCYTES % (AUTO) 6.6 % (0.0-11.0); NEUTROPHILS % (AUTO) 81.8 % (38.5-71.5); PLATELET COUNT (AUTO) 497 K/uL (179-408)
[2024-02-12 09:33] LABS: BASOPHILS # (AUTO) 0.1 K/UL (0.0-0.2); EOSINOPHILS # (AUTO) 0.2 K/uL (0.0-0.7); LYMPHOCYTES # (AUTO) 1.2 K/uL (0.8-4.8); MONOCYTES # (AUTO) 0.9 K/uL (0.1-1.30); NEUTROPHILS # (AUTO) 10.7 K/uL (1.8-8.9)
[2024-02-12 14:03] LABS: CARBON DIOXIDE 24 mmol/L (21-32); CHLORIDE 108 mmol/L (98-107); GLUCOSE 147 mg/dL (74-106); POTASSIUM 3.7 mmol/L (3.5-5.1); SODIUM SERUM 144 mmol/L (136-145)
[2024-02-12 14:04] LABS: CALCIUM 9.4 mg/dL (8.5-10.1); CREATININE 1.1 mg/dL (0.6-1.3); MAGNESIUM 2.3 mg/dL (1.8-2.4); PHOSPHOROUS 3.4 mg/dL (2.5-4.9); UREA NITROGEN, BLOOD 15 mg/dL (7-18)
== END 2024-02-12 16:45 | disposition home health service (06) | DRG 811 ==
LOC: ER 12:32 → MEDSURG3 16:33 → TELE3 16:55 → MEDSURG3 02-12 11:56
PROVIDERS: ADMIT Internal Medicine; ATTEND Internal Medicine
PROC: 30233P1 Transfusion of Nonautologous Frozen Red Cells into Peripheral Vein, Percutaneous Approach (ICD-10-PCS; principal; 2024-02-10)
DX: D50.9 Iron deficiency anemia, unspecified (principal); G93.41 Metabolic encephalopathy; N39.0 Urinary tract infection, site not specified; E44.1 Mild protein-calorie malnutrition; F01.C3 Vascular dementia, severe, with mood disturbance; F02.C3 Dementia in other diseases classified elsewhere, severe, with mood disturbance; F02.C4 Dementia in other diseases classified elsewhere, severe, with anxiety; F01.C4 Vascular dementia, severe, with anxiety; M50.00 Cervical disc disorder with myelopathy, unspecified cervical region; T86.8411 Corneal transplant failure, right eye; H54.8 Legal blindness, as defined in USA; N18.9 Chronic kidney disease, unspecified; E11.22 Type 2 diabetes mellitus with diabetic chronic kidney disease; E88.09 Other disorders of plasma-protein metabolism, not elsewhere classified; Z68.23 Body mass index [BMI] 23.0-23.9, adult; B96.89 Other specified bacterial agents as the cause of diseases classified elsewhere; E87.6 Hypokalemia; G89.29 Other chronic pain; M25.552 Pain in left hip; M25.551 Pain in right hip; F17.210 Nicotine dependence, cigarettes, uncomplicated; I48.0 Paroxysmal atrial fibrillation; G30.9 Alzheimer's disease, unspecified; I25.10 Atherosclerotic heart disease of native coronary artery without angina pectoris; Z79.01 Long term (current) use of anticoagulants; I12.9 Hypertensive chronic kidney disease with stage 1 through stage 4 chronic kidney disease, or unspecified chronic kidney disease; K21.9 Gastro-esophageal reflux disease without esophagitis; M50.10 Cervical disc disorder with radiculopathy, unspecified cervical region; Z79.899 Other long term (current) drug therapy; K42.9 Umbilical hernia without obstruction or gangrene; E78.5 Hyperlipidemia, unspecified; Z78.1 Physical restraint status; E03.9 Hypothyroidism, unspecified; M10.9 Gout, unspecified
CPT/HCPCS: 36415; 70030-TC; 71045; 82378; 83550; 83605; 83735; 84100; 84443; 84484; 85018; 85025; 85610; 85730; 86850; 86900; 86901; 86920; A4606; A4663; G0378; J0696; J1940; P9016

== ENCOUNTER 2024-02-25 12:52 | Inpatient (IN) | payer MEDICARE, OTHER ==
[~2024-02-25] VITALS: Ht 160 cm; Wt 61.2 kg
[2024-02-25] VITALS (8 sets, daily range): BP systolic 113–143; BP diastolic 51–78; TEMP 97.4–98.9; O2SAT 96
[2024-02-25 13:25] LABS: BASOPHILS # (AUTO) 0.1 K/UL (0.0-0.2); BASOPHILS % (AUTO) 2.7 % (0.0-2.0); EOSINOPHILS # (AUTO) 0.1 K/uL (0.0-0.7); EOSINOPHILS % (AUTO) 2.4 % (0.0-7.0); LYMPHOCYTES # (AUTO) 1.7 K/uL (0.8-4.8); LYMPHOCYTES % (AUTO) 31.1 % (20.5-51.5); MEAN CORPUSCULAR HEMOGLOBIN 22.3 uug (24.7-32.8); MEAN CORPUSCULAR HGB CONC 29 g/dL (32.3-35.6); MEAN CORPUSCULAR VOLUME 75.8 fL (75.5-95.3); MONOCYTES # (AUTO) 0.4 K/uL (0.1-1.30); MONOCYTES % (AUTO) 7.5 % (0.0-11.0); NEUTROPHILS % (AUTO) 56.3 % (38.5-71.5); PLATELET COUNT (AUTO) 567 K/uL (179-408); RED BLOOD CELL COUNT(AUTO) 2.72 MIL/uL (3.63-4.92); RED CELL DISTRIBUTION WIDTH 21.5 % (12.3-17.7); WHITE BLOOD COUNT (AUTO) 5.4 K/uL (3.8-11.8)
[2024-02-25 13:36] LABS: CALCIUM 8.7 mg/dL (8.5-10.1); CARBON DIOXIDE 26 mmol/L (21-32); CHLORIDE 108 mmol/L (98-107); GLUCOSE 107 mg/dL (74-106); POTASSIUM 3.9 mmol/L (3.5-5.1); SODIUM SERUM 142 mmol/L (136-145); UREA NITROGEN, BLOOD 19 mg/dL (7-18)
[2024-02-25 13:42] LABS: ALANINE AMINOTRANSFERASE 10 U/L (14-59); ALBUMIN 3.3 g/dL (3.4-5.0); ALKALINE PHOSPHATASE 56 U/L (50-136); ASPARTATE AMINOTRANSFERASE 11 U/L (15-37); BILIRUBIN,DIRECT 0.1 mg/dL (0.0-0.2); BILIRUBIN,TOTAL 0.3 mg/dL (0.2-1.0); TOTAL PROTEIN, SERUM 6.9 g/dL (6.4-8.2)
[2024-02-25 13:45] LABS: DIFFERENTIAL COMMENT 1; HEMATOCRIT 20.6 % (31.2-41.9); HEMOGLOBIN 6.1 g/dL (10.9-14.3)
[2024-02-25] MEDS ORDERED: EVOL140P3 SQ (13:51)
[2024-02-25] MEDS ORDERED: DULA1.5P SQ (13:51)
[2024-02-25] MEDS ORDERED: GEMTESA (13:51)
[2024-02-25] MEDS ORDERED: RIME75TA SL (13:51)
[2024-02-25] MEDS ORDERED: ALPR0.255 PO (13:51)
[2024-02-25] MEDS ORDERED: HYOS-19 PO (13:51)
[2024-02-25] MEDS ORDERED: ATOR20TA (13:51)
[2024-02-25] MEDS ORDERED: FOLI1TAB27 PO (13:51)
[2024-02-25] MEDS ORDERED: RIZA10TA28 PO (13:51)
[2024-02-25] MEDS ORDERED: MEMA10TA56 PO (13:51)
[2024-02-25] MEDS ORDERED: METF500T67 (13:51)
[2024-02-25] MEDS ORDERED: NITR100C6 (13:51)
[2024-02-25] MEDS ORDERED: FAMO20TA29 (13:51)
[2024-02-25] MEDS ORDERED: hydrALAZINE HCL 25 MG TABLET PO PRN (15:15)
[2024-02-25] MEDS ORDERED: QUETIAPINE FUMARATE 25 MG TABLET PO PRN (15:15)
[2024-02-25] MEDS ORDERED: HYDROCODONE/APAP 5-325MG TABLET PO PRN (15:15)
[2024-02-25] MEDS: ACETAMINOPHEN 325 MG TABLET PO PRN (15:54)
[2024-02-25] MEDS: QUETIAPINE FUMARATE 25 MG TABLET PO ONE (16:04)
[2024-02-25] MEDS ORDERED: ONDANSETRON 4 MG/2 ML VIAL IV PRN (16:45)
[2024-02-25] MEDS ORDERED: ACETAMINOPHEN 325 MG TABLET PO PRN (16:45)
[2024-02-25] MEDS ORDERED: REMEDY ESSENTIAL ZINC PASTE 113 GM TP PRN (16:45)
[2024-02-25] MEDS: OLANZAPINE 10 MG VIAL IM ONE (19:05)
[2024-02-25 19:26] LABS: EOSINOPHILS % (MANUAL) 4 % (0-8); HYPOCHROMASIA 2+; LYMPHOCYTES % (MANUAL) 20 % (20-40); MONOCYTES % (MANUAL) 3 % (2-10); NEUTROPHILS % (MANUAL) 73 % (42-75); PLATELET ESTIMATE INCREASED
[2024-02-25 19:27] LABS: ANISOCYTOSIS 3+
[2024-02-25] MEDS: DOCUSATE SODIUM 100 MG CAPSULE PO SCH (20:24)
[2024-02-25] MEDS: CLONAZEPAM 0.5 MG TABLET PO SCH (20:25)
[2024-02-25] MEDS: LORAZEPAM 2 MG/1 ML VIAL IV ONE (21:37)
[2024-02-25] MEDS: FUROSEMIDE 20 MG/2 ML VIAL IV PRN (22:38)
[2024-02-26 00:21] VITALS: BP 134/66; TEMP 97.4
[2024-02-26 01:04] VITALS: BP 136/74; TEMP 97.9
[2024-02-26 03:32] VITALS: BP 131/62; TEMP 97.3
[2024-02-26] MEDS: PANTOPRAZOLE SODIUM 40 MG TABLET.DR PO SCH (06:15)
[2024-02-26 07:13] LABS: BASOPHILS # (AUTO) 0.1 K/UL (0.0-0.2); BASOPHILS % (AUTO) 1.3 % (0.0-2.0); EOSINOPHILS # (AUTO) 0.1 K/uL (0.0-0.7); EOSINOPHILS % (AUTO) 1.2 % (0.0-7.0); HEMATOCRIT 34.8 % (31.2-41.9); HEMOGLOBIN 11.3 g/dL (10.9-14.3); LYMPHOCYTES # (AUTO) 1.1 K/uL (0.8-4.8); LYMPHOCYTES % (AUTO) 10.3 % (20.5-51.5); MEAN CORPUSCULAR HEMOGLOBIN 25.8 uug (24.7-32.8); MEAN CORPUSCULAR HGB CONC 32 g/dL (32.3-35.6); MEAN CORPUSCULAR VOLUME 79.9 fL (75.5-95.3); MONOCYTES # (AUTO) 0.9 K/uL (0.1-1.30); MONOCYTES % (AUTO) 9.1 % (0.0-11.0); NEUTROPHILS % (AUTO) 78.1 % (38.5-71.5); PLATELET COUNT (AUTO) 556 K/uL (179-408); RED BLOOD CELL COUNT(AUTO) 4.36 MIL/uL (3.63-4.92); RED CELL DISTRIBUTION WIDTH 20.2 % (12.3-17.7); WHITE BLOOD COUNT (AUTO) 10.3 K/uL (3.8-11.8)
[2024-02-26 07:54] LABS: DIFFERENTIAL COMMENT 1
[2024-02-26 08:38] VITALS: BP 131/62
[2024-02-26] MEDS: DILTIAZEM HCL CD 120 MG CAP.SR.24H PO SCH (08:38)
[2024-02-26] MEDS: CLONAZEPAM 0.5 MG TABLET PO PRN (10:37)
== END 2024-02-26 11:45 | disposition home or self-care (01) | DRG 815 ==
LOC: ER 12:52 → MEDSURG3 14:16
PROVIDERS: ADMIT Nurse Practitioner Acute Care; ATTEND Nurse Practitioner Acute Care
PROC: 30233N1 Transfusion of Nonautologous Red Blood Cells into Peripheral Vein, Percutaneous Approach (ICD-10-PCS; principal; 2024-02-25)
DX: D89.89 Other specified disorders involving the immune mechanism, not elsewhere classified (principal); F03.92 Unspecified dementia, unspecified severity, with psychotic disturbance; D63.8 Anemia in other chronic diseases classified elsewhere; D46.9 Myelodysplastic syndrome, unspecified; H54.8 Legal blindness, as defined in USA; E11.22 Type 2 diabetes mellitus with diabetic chronic kidney disease; N18.9 Chronic kidney disease, unspecified; K59.09 Other constipation; K21.9 Gastro-esophageal reflux disease without esophagitis; J44.9 Chronic obstructive pulmonary disease, unspecified; E78.5 Hyperlipidemia, unspecified; D75.839 Thrombocytosis, unspecified; Z79.84 Long term (current) use of oral hypoglycemic drugs; Z79.899 Other long term (current) drug therapy
CPT/HCPCS: 36415; 70030-TC; 71045; 85025; 85730; 86850; 86900; 86901; 86920; 93005; G0378; J1940; J2060; J2358; P9016

== ENCOUNTER 2024-04-27 11:07 | Inpatient (IN) | payer MEDICARE, OTHER ==
[~2024-04-27] VITALS: Ht 157.5 cm; Wt 63.6 kg
[2024-04-27] MEDS ORDERED: ONDANSETRON 4 MG/2 ML VIAL ONE (11:22)
[2024-04-27] MEDS ORDERED: HYDROMORPHONE 1 MG/1 ML DISP.SYRIN ONE (11:23)
[2024-04-27] MEDS ORDERED: IOHEXOL 300MG/ML 100 ML INFUS..BTL ONE (11:28)
[2024-04-27] MEDS ORDERED: SWABABLE VALVE TRANSFER SET EA MC ONE (11:28)
[2024-04-27] MEDS ORDERED: IV NORMAL SALINE 250 ML IV ONE (11:29)
[2024-04-27 11:33] LABS: BASOPHILS # (AUTO) 0.1 K/UL (0.0-0.2); BASOPHILS % (AUTO) 0.6 % (0.0-2.0); EOSINOPHILS # (AUTO) 0.2 K/uL (0.0-0.7); EOSINOPHILS % (AUTO) 2.4 % (0.0-7.0); HEMATOCRIT 24.2 % (31.2-41.9); LYMPHOCYTES # (AUTO) 1.2 K/uL (0.8-4.8); LYMPHOCYTES % (AUTO) 13.2 % (20.5-51.5); MEAN CORPUSCULAR HEMOGLOBIN 23.2 uug (24.7-32.8); MEAN CORPUSCULAR HGB CONC 30 g/dL (32.3-35.6); MEAN CORPUSCULAR VOLUME 76.5 fL (75.5-95.3); MONOCYTES # (AUTO) 1.4 K/uL (0.1-1.30); MONOCYTES % (AUTO) 15.4 % (0.0-11.0); NEUTROPHILS # (AUTO) 6.2 K/uL (1.8-8.9); NEUTROPHILS % (AUTO) 68.4 % (38.5-71.5); PLATELET COUNT (AUTO) 484 K/uL (179-408); RED BLOOD CELL COUNT(AUTO) 3.16 MIL/uL (3.63-4.92); RED CELL DISTRIBUTION WIDTH 19.1 % (12.3-17.7)
[2024-04-27 11:48] LABS: ALANINE AMINOTRANSFERASE 9 U/L (14-59); ALBUMIN 3.4 g/dL (3.4-5.0); ALKALINE PHOSPHATASE 84 U/L (50-136); ASPARTATE AMINOTRANSFERASE 17 U/L (15-37); BILIRUBIN,DIRECT 0.1 mg/dL (0.0-0.2); BILIRUBIN,TOTAL 0.2 mg/dL (0.2-1.0); CALCIUM 8.5 mg/dL (8.5-10.1); CARBON DIOXIDE 23 mmol/L (21-32); CHLORIDE 108 mmol/L (98-107); GLUCOSE 169 mg/dL (74-106); LIPASE 89 U/L (16-77); SODIUM SERUM 141 mmol/L (136-145); TOTAL PROTEIN, SERUM 7.6 g/dL (6.4-8.2); UREA NITROGEN, BLOOD 23 mg/dL (7-18)
[2024-04-27 11:55] LABS: DIFFERENTIAL COMMENT 1; HEMOGLOBIN 7.3 g/dL (10.9-14.3)
[2024-04-27] MEDS: ONDANSETRON 4 MG/2 ML VIAL IV ONE (12:00)
[2024-04-27] MEDS: HYDROMORPHONE 1 MG/1 ML DISP.SYRIN IV ONE (12:00)
[2024-04-27] MEDS: IV NORMAL SALINE 1000 ML BAG IV ONE (12:00)
[2024-04-27] MEDS ORDERED: QUET50TA PO (12:29)
[2024-04-27] MEDS ORDERED: LINA290C PO (12:29)
[2024-04-27] MEDS ORDERED: HYDR-894 PO (12:29)
[2024-04-27] MEDS ORDERED: LEVO25TA9 PO (12:29)
[2024-04-27] MEDS ORDERED: QUET25TA PO (12:29)
[2024-04-27] MEDS ORDERED: ACET-2030 PO (12:29)
[2024-04-27] MEDS ORDERED: MEMA5TAB42 PO (12:29)
[2024-04-27] MEDS ORDERED: ESOM40CA PO (12:29)
[2024-04-27] MEDS ORDERED: RIVA15TA2 PO (12:29)
[2024-04-27] MEDS ORDERED: POTA-88 PO (12:29)
[2024-04-27] MEDS ORDERED: DILT-32 PO (12:29)
[2024-04-27] MEDS ORDERED: CRAN450T9 PO (12:29)
[2024-04-27 13:03] LABS: NT-PRO BNP 285 pg/mL (0-125)
[2024-04-27 13:10] LABS: POTASSIUM 4.3 mmol/L (3.5-5.1)
[2024-04-27 13:17] LABS: IRON, SERUM 23 ug/dL (50-175)
[2024-04-27 13:29] LABS: *BILIRUBIN,URIN NEGATIVE (NEGATIVE); *BLOOD, URINE NEGATIVE (NEGATIVE); *CLARITY,URINE CLEAR (CLEAR); *COLOR,URINE YELLOW (YELLOW); *KETONES,URINE NEGATIVE (NEGATIVE); *PROTEIN,URINE NEGATIVE (NEGATIVE); *UROBILINOGEN,URINE 0.2 E.U./dl (NORMAL); LEUKOCYTE ESTERASE ,URINE NEGATIVE (NEGATIVE); NITRITE, URINE NEGATIVE (NEGATIVE); PH,URINE 5.5 (5.0-8.0); UGLUCOSE NEGATIVE (NEGATIVE)
[2024-04-27] MEDS ORDERED: diphenhydrAMINE 25 MG CAP PO ONE (13:45)
[2024-04-27] MEDS: diphenhydrAMINE 25 MG CAP PO ONE (13:48)
[2024-04-27] MEDS: OLANZAPINE 10 MG VIAL IM ONE ×2 (15:01→15:35)
[2024-04-27 16:06] VITALS: BP 132/57; TEMP 98.2; O2SAT 94
[2024-04-27] MEDS: POLYVINYL ALCOHOL OPHT DROPS 15 ML BOTTLE EACHEYE SCH (17:00)
[2024-04-27] MEDS: ERYTHROMYCIN 0.5% OPHT OINT 3.5 GM TUBE RIGHTEYE SCH (17:00)
[2024-04-27] MEDS: SODIUM CHLORIDE 5% LEFTEYE SCH (17:00)
[2024-04-27] MEDS ORDERED: hydrALAZINE HCL 25 MG TABLET PO PRN (18:15)
[2024-04-27] MEDS ORDERED: MAGNESIUM HYDROXIDE 30 ML LIQUID UDC PO PRN (18:15)
[2024-04-27] MEDS: QUETIAPINE FUMARATE 25 MG TABLET PO SCH ×2 (19:01→20:46)
[2024-04-27 19:39] VITALS: BP 142/67; TEMP 99.1; O2SAT 95
[2024-04-27 20:09] LABS: ANISOCYTOSIS 2+; BAND % (MANUAL) 1 % (0-10); EOSINOPHILS % (MANUAL) 2 % (0-8); LYMPHOCYTES % (MANUAL) 12 % (20-40); MONOCYTES % (MANUAL) 12 % (2-10); NEUTROPHILS % (MANUAL) 73 % (42-75); PLATELET ESTIMATE ADEQUATE
[2024-04-27 20:10] LABS: HYPOCHROMASIA 1+; OVALOCYTES 1+; TEAR DROP CELLS 1+
[2024-04-27] MEDS ORDERED: Medication Not On Formulary EA (Quetiapine Fumarate (Seroquel) 50 MG) PO SCH (21:00)
[2024-04-27 21:56] VITALS: BP 145/71; TEMP 99
[2024-04-27] MEDS: ACETAMINOPHEN 325 MG TABLET PO PRN (22:11)
[2024-04-27 22:29] VITALS: BP 134/66; TEMP 98.6
[2024-04-27 23:00] VITALS: BP 136/60; TEMP 99.1
[2024-04-28] VITALS (7 sets, daily range): BP systolic 136–167; BP diastolic 71–93; TEMP 98–98.9; O2SAT 94–98
[2024-04-28] MEDS: LEVOTHYROXINE SODIUM 25 MCG TABLET PO SCH (06:09)
[2024-04-28] MEDS: PANTOPRAZOLE SODIUM 40 MG TABLET.DR PO SCH (06:09)
[2024-04-28 06:50] LABS: BASOPHILS # (AUTO) 0.1 K/UL (0.0-0.2); BASOPHILS % (AUTO) 0.8 % (0.0-2.0); EOSINOPHILS # (AUTO) 0.1 K/uL (0.0-0.7); EOSINOPHILS % (AUTO) 1.1 % (0.0-7.0); HEMATOCRIT 30.6 % (31.2-41.9); HEMOGLOBIN 9.7 g/dL (10.9-14.3); LYMPHOCYTES # (AUTO) 1.8 K/uL (0.8-4.8); LYMPHOCYTES % (AUTO) 15.5 % (20.5-51.5); MEAN CORPUSCULAR HEMOGLOBIN 24.1 uug (24.7-32.8); MEAN CORPUSCULAR HGB CONC 32 g/dL (32.3-35.6); MEAN CORPUSCULAR VOLUME 76.1 fL (75.5-95.3); MONOCYTES # (AUTO) 1.2 K/uL (0.1-1.30); MONOCYTES % (AUTO) 10.4 % (0.0-11.0); NEUTROPHILS # (AUTO) 8.2 K/uL (1.8-8.9); NEUTROPHILS % (AUTO) 72.2 % (38.5-71.5); PLATELET COUNT (AUTO) 509 K/uL (179-408); RED BLOOD CELL COUNT(AUTO) 4.02 MIL/uL (3.63-4.92); RED CELL DISTRIBUTION WIDTH 17.9 % (12.3-17.7); WHITE BLOOD COUNT (AUTO) 11.4 K/uL (3.8-11.8)
[2024-04-28 07:12] LABS: ALANINE AMINOTRANSFERASE 10 U/L (14-59); ALBUMIN 3.5 g/dL (3.4-5.0); ALKALINE PHOSPHATASE 90 U/L (50-136); ASPARTATE AMINOTRANSFERASE 6 U/L (15-37); BILIRUBIN,TOTAL 0.8 mg/dL (0.2-1.0); CALCIUM 8.8 mg/dL (8.5-10.1); CARBON DIOXIDE 26 mmol/L (21-32); CHLORIDE 108 mmol/L (98-107); GLUCOSE 161 mg/dL (74-106); LIPASE 48 U/L (16-77); MAGNESIUM 1.6 mg/dL (1.8-2.4); PHOSPHOROUS 4.2 mg/dL (2.5-4.9); SODIUM SERUM 143 mmol/L (136-145); TOTAL PROTEIN, SERUM 7.9 g/dL (6.4-8.2); UREA NITROGEN, BLOOD 14 mg/dL (7-18)
[2024-04-28 07:15] LABS: DIFFERENTIAL COMMENT 1
[2024-04-28 07:23] LABS: THYROID STIMULATING HORMONE 2.349 mIU/mL (0.358-3.740)
[2024-04-28] MEDS: MEMANTINE HCL 5 MG TABLET PO SCH (08:01)
[2024-04-28] MEDS: MAGNESIUM SULFATE/D5W 100 ML IV SCH (09:58)
[2024-04-28] MEDS: SOD FERRIC GLUC COMPLX/SUCROSE 125 MG in IV NORMAL SALINE 100 ML IV ONE (14:06)
[2024-04-28] MEDS ORDERED: LORAZEPAM 2 MG/1 ML VIAL IV PRN (16:45)
[2024-04-28] MEDS: DILTIAZEM HCL CD 120 MG CAP.SR.24H PO SCH (17:02)
[2024-04-28] MEDS: RIVAROXABAN 15 MG TABLET PO SCH (17:08)
[2024-04-29 00:53] VITALS: BP 120/53; TEMP 98.5
[2024-04-29 04:05] VITALS: BP 126/73; TEMP 98.5
[2024-04-29 07:17] LABS: BASOPHILS # (AUTO) 0.1 K/UL (0.0-0.2); BASOPHILS % (AUTO) 0.8 % (0.0-2.0); EOSINOPHILS # (AUTO) 0.3 K/uL (0.0-0.7); EOSINOPHILS % (AUTO) 3.2 % (0.0-7.0); HEMATOCRIT 31.9 % (31.2-41.9); LYMPHOCYTES # (AUTO) 1.2 K/uL (0.8-4.8); MEAN CORPUSCULAR HEMOGLOBIN 23.7 uug (24.7-32.8); MEAN CORPUSCULAR HGB CONC 31 g/dL (32.3-35.6); MEAN CORPUSCULAR VOLUME 75.7 fL (75.5-95.3); MONOCYTES % (AUTO) 12.1 % (0.0-11.0); NEUTROPHILS # (AUTO) 5.7 K/uL (1.8-8.9); NEUTROPHILS % (AUTO) 68.9 % (38.5-71.5); PLATELET COUNT (AUTO) 532 K/uL (179-408); RED BLOOD CELL COUNT(AUTO) 4.22 MIL/uL (3.63-4.92); RED CELL DISTRIBUTION WIDTH 18.2 % (12.3-17.7); WHITE BLOOD COUNT (AUTO) 8.3 K/uL (3.8-11.8)
[2024-04-29 07:20] LABS: DIFFERENTIAL COMMENT 1
[2024-04-29 07:22] LABS: CALCIUM 8.9 mg/dL (8.5-10.1); CARBON DIOXIDE 27 mmol/L (21-32); CHLORIDE 106 mmol/L (98-107); GLUCOSE 159 mg/dL (74-106); MAGNESIUM 2.3 mg/dL (1.8-2.4); POTASSIUM 3.7 mmol/L (3.5-5.1); SODIUM SERUM 142 mmol/L (136-145); UREA NITROGEN, BLOOD 16 mg/dL (7-18)
[2024-04-29 07:37] VITALS: BP 146/63; TEMP 98.2; O2SAT 94
[2024-04-29 12:00] VITALS: BP 157/70; TEMP 98.4; O2SAT 96
[2024-04-29] MEDS ORDERED: LORAZEPAM 2 MG/1 ML VIAL IM PRN (12:30)
[2024-04-29 16:00] VITALS: BP 138/69; TEMP 97.8; O2SAT 94
[2024-04-29 20:00] VITALS: BP 143/70; TEMP 98; O2SAT 95
[2024-04-30 06:00] VITALS: BP 156/74; TEMP 98.2; O2SAT 98
[2024-04-30] MEDS: DIVALPROEX SPRINKLE 125 MG CAP.SPRINK PO SCH (09:03)
[2024-04-30] MEDS ORDERED: DIVA125C2 PO (10:31)
[2024-04-30] MEDS ORDERED: MIRT-73 PO (10:31)
[2024-04-30 12:00] VITALS: BP 143/89; TEMP 97.4; O2SAT 93
[2024-04-30 16:00] VITALS: BP 156/95; TEMP 97.9; O2SAT 93
[2024-04-30] MEDS ORDERED: MIRTAZAPINE 15 MG TABLET PO SCH (21:00)
== END 2024-04-30 17:00 | disposition home or self-care (01) | DRG 811 ==
LOC: ER 11:07 → TELE3 13:56 → MEDSURG3 15:55 → TELE3 04-28 14:54 → MEDSURG3 04-29 12:01
PROVIDERS: ADMIT Internal Medicine; ATTEND Internal Medicine
PROC: 30233N1 Transfusion of Nonautologous Red Blood Cells into Peripheral Vein, Percutaneous Approach (ICD-10-PCS; principal; 2024-04-27)
DX: D50.9 Iron deficiency anemia, unspecified (principal); G92.8 Other toxic encephalopathy; F02.C3 Dementia in other diseases classified elsewhere, severe, with mood disturbance; F01.C4 Vascular dementia, severe, with anxiety; F02.C4 Dementia in other diseases classified elsewhere, severe, with anxiety; F01.C3 Vascular dementia, severe, with mood disturbance; K92.2 Gastrointestinal hemorrhage, unspecified; D46.9 Myelodysplastic syndrome, unspecified; K42.9 Umbilical hernia without obstruction or gangrene; I48.0 Paroxysmal atrial fibrillation; E78.5 Hyperlipidemia, unspecified; H54.8 Legal blindness, as defined in USA; K21.9 Gastro-esophageal reflux disease without esophagitis; D35.02 Benign neoplasm of left adrenal gland; Z94.7 Corneal transplant status; Z87.440 Personal history of urinary (tract) infections; Z79.899 Other long term (current) drug therapy; Z79.01 Long term (current) use of anticoagulants; J44.9 Chronic obstructive pulmonary disease, unspecified; M15.9 Polyosteoarthritis, unspecified; I10 Essential (primary) hypertension; I25.10 Atherosclerotic heart disease of native coronary artery without angina pectoris; E03.9 Hypothyroidism, unspecified; Z90.49 Acquired absence of other specified parts of digestive tract; M51.16 Intervertebral disc disorders with radiculopathy, lumbar region; F17.210 Nicotine dependence, cigarettes, uncomplicated; E09.9 Drug or chemical induced diabetes mellitus without complications; T38.0X5A Adverse effect of glucocorticoids and synthetic analogues, initial encounter; Y92.9 Unspecified place or not applicable; Z78.1 Physical restraint status; G30.9 Alzheimer's disease, unspecified; D75.839 Thrombocytosis, unspecified
CPT/HCPCS: 36415; 70030-TC; 83550; 83605; 83690; 83735; 84100; 84443; 84484; 85025; 85610; 86850; 86900; 86901; 86920; 93005; 97535-GO-CO; A4663; C1758; G0378; J1170; J2358; J2405; J2916; J3475; J7040; P9016; Q0163; Q9967

== ENCOUNTER 2024-09-11 10:55 | Inpatient (IN) | payer MEDICARE, OTHER ==
[2024-09-11] VITALS (7 sets, daily range): BP systolic 136–158; BP diastolic 71–93; TEMP 98–98.8; O2SAT 92–100
[~2024-09-11] VITALS: Ht 165.1 cm; Wt 71.2 kg
[~2024-09-11 10:55] MED LIST changes: +ACET-2030 PO; -ACET-73 PO; -BISA10SU61 RC; -CHOL10002 PO; -CLON0.5T4 PO; +CRAN450T9 PO; -DEXT1DRO3 EACHEYE; +DILT-32 PO; -DILT30TA35 PO; +DIVA125C2 PO; +ESOM40CA PO; -FEBU40TA PO; +HYDR-894 PO; -MEMA10TA PO; +MEMA5TAB42 PO; -METO50TA16 PO; +MIRT-73 PO; -NUT.237L36 PO; -PANT40TA2 PO; +POTA-88 PO; -POTA10CA43 PO; +QUET50TA PO; -RIVA15TA PO; +RIVA15TA2 PO; -SERT25TA PO
[2024-09-11] MEDS: IV NS 1000 ML 1,000 ML IV ONE (11:51)
[2024-09-11 11:56] LABS: BASOPHILS # (AUTO) 0.1 K/UL (0.0-0.2); BASOPHILS % (AUTO) 1.9 % (0.0-2.0); DIFFERENTIAL COMMENT 0; EOSINOPHILS # (AUTO) 0.2 K/uL (0.0-0.7); EOSINOPHILS % (AUTO) 3.4 % (0.0-7.0); HEMATOCRIT 21.9 % (31.2-41.9); LYMPHOCYTES # (AUTO) 1.5 K/uL (0.8-4.8); LYMPHOCYTES % (AUTO) 25.9 % (20.5-51.5); MEAN CORPUSCULAR HEMOGLOBIN 20.1 uug (24.7-32.8); MEAN CORPUSCULAR HGB CONC 30 g/dL (32.3-35.6); MEAN CORPUSCULAR VOLUME 67.1 fL (75.5-95.3); MONOCYTES # (AUTO) 0.5 K/uL (0.1-1.30); MONOCYTES % (AUTO) 8.5 % (0.0-11.0); NEUTROPHILS # (AUTO) 3.6 K/uL (1.8-8.9); NEUTROPHILS % (AUTO) 60.3 % (38.5-71.5); PLATELET COUNT (AUTO) 486 K/uL (179-408); RED BLOOD CELL COUNT(AUTO) 3.26 MIL/uL (3.63-4.92); RED CELL DISTRIBUTION WIDTH 17.6 % (12.3-17.7)
[2024-09-11 11:59] LABS: HEMOGLOBIN 6.5 g/dL (10.9-14.3)
[2024-09-11 12:02] LABS: ALANINE AMINOTRANSFERASE 10 U/L (14-59); ALBUMIN 3.6 g/dL (3.4-5.0); ALKALINE PHOSPHATASE 53 U/L (50-136); ASPARTATE AMINOTRANSFERASE 10 U/L (15-37); BILIRUBIN,DIRECT 0.1 mg/dL (0.0-0.2); BILIRUBIN,TOTAL 0.2 mg/dL (0.2-1.0); CALCIUM 8.9 mg/dL (8.5-10.1); CARBON DIOXIDE 26 mmol/L (21-32); CHLORIDE 104 mmol/L (98-107); GLUCOSE 203 mg/dL (74-106); POTASSIUM 4.2 mmol/L (3.5-5.1); SODIUM SERUM 140 mmol/L (136-145); TOTAL PROTEIN, SERUM 7.8 g/dL (6.4-8.2); UREA NITROGEN, BLOOD 20 mg/dL (7-18)
[2024-09-11] MEDS: MAG HYDROX/AL HYDROX/SIMETH 30 ML LIQUID UDC PO ONE (12:10)
[2024-09-11 12:17] LABS: *BILIRUBIN,URIN NEGATIVE (NEGATIVE); *BLOOD, URINE NEGATIVE (NEGATIVE); *CLARITY,URINE CLEAR (CLEAR); *COLOR,URINE YELLOW (YELLOW); *KETONES,URINE NEGATIVE (NEGATIVE); *PROTEIN,URINE NEGATIVE (NEGATIVE); *UROBILINOGEN,URINE 0.2 E.U./dl (NORMAL); LEUKOCYTE ESTERASE ,URINE 2+ (NEGATIVE); NITRITE, URINE NEGATIVE (NEGATIVE); PH,URINE 5.5 (5.0-8.0); UGLUCOSE NEGATIVE (NEGATIVE)
[2024-09-11 12:24] LABS: BACTERIA,URINE FEW /HPF (NONE SEEN); SQUAMOUS EPITHELIAL CELL,UR MODERATE /HPF (NONE SEEN); WBC,URINE 20-50 /HPF (0-3)
[2024-09-11] MEDS ORDERED: SERT25TA PO (12:28)
[2024-09-11 12:35] LABS: IRON, SERUM 10 ug/dL (50-175)
[2024-09-11] MEDS ORDERED: REMEDY ESSENTIAL ZINC PASTE 113 GM TP PRN (12:45)
[2024-09-11] MEDS ORDERED: ACETAMINOPHEN 325 MG TABLET PO PRN (12:45)
[2024-09-11] MEDS ORDERED: MAGNESIUM HYDROXIDE 30 ML LIQUID UDC PO PRN (12:45)
[2024-09-11] MEDS ORDERED: hydrALAZINE HCL 25 MG TABLET PO PRN (12:45)
[2024-09-11] MEDS ORDERED: ONDANSETRON 4 MG/2 ML VIAL IV PRN (12:45)
[2024-09-11 12:48] LABS: FERRITIN 4 ng/mL (8-252)
[2024-09-11 13:17] LABS: EOSINOPHILS % (MANUAL) 3 % (0-8); LYMPHOCYTES % (MANUAL) 27 % (20-40); MONOCYTES % (MANUAL) 10 % (2-10); NEUTROPHILS % (MANUAL) 60 % (42-75); PLATELET ESTIMATE INCREASED
[2024-09-11] MEDS ORDERED: CEFTRIAXONE 1 G VIAL IM SCH (14:15)
[2024-09-11] MEDS ORDERED: MIRTAZAPINE 15 MG TAB.RAPDIS PO PRN (14:45)
[2024-09-11] MEDS: SOD FERRIC GLUC COMPLX/SUCROSE 125 MG in IV NORMAL SALINE 100 ML IV ONE (14:49)
[2024-09-11] MEDS: QUETIAPINE FUMARATE 25 MG TABLET PO SCH (15:05)
[2024-09-11] MEDS: DIVALPROEX SPRINKLE 125 MG CAP.SPRINK PO SCH (15:05)
[2024-09-11] MEDS: MEMANTINE HCL 5 MG TABLET PO SCH (17:00)
[2024-09-11] MEDS: LORAZEPAM 2 MG/1 ML VIAL IM ONE (19:02)
[2024-09-11] MEDS: QUETIAPINE FUMARATE 25 MG TABLET PO PRN (20:04)
[2024-09-11] MEDS: CEFTRIAXONE 1 G in IV DEXTROSE 5% 50 ML IV SCH (20:06)
[2024-09-11] MEDS: OLANZAPINE 10 MG VIAL IM ONE (20:31)
[2024-09-11] MEDS ORDERED: MIRTAZAPINE 15 MG TAB.RAPDIS PO SCH (21:00)
[2024-09-11] MEDS ORDERED: Medication Not On Formulary EA (Quetiapine Fumarate (Seroquel) 50 MG) PO SCH (21:00)
[2024-09-11] MEDS: ZOLPIDEM 5 MG TABLET PO PRN (22:38)
[2024-09-12] MEDS: OLANZAPINE 10 MG VIAL IM PRN (05:18)
[2024-09-12] MEDS: LEVOTHYROXINE SODIUM 25 MCG TABLET PO SCH (06:23)
[2024-09-12] MEDS: PANTOPRAZOLE SODIUM 40 MG TABLET.DR PO SCH (06:23)
[2024-09-12 06:34] VITALS: BP 148/81; TEMP 98; O2SAT 96
[2024-09-12 07:41] VITALS: BP 144/96; TEMP 97.8; O2SAT 96
[2024-09-12 08:07] LABS: BASOPHILS # (AUTO) 0.1 K/UL (0.0-0.2); BASOPHILS % (AUTO) 1.2 % (0.0-2.0); DIFFERENTIAL COMMENT 0; EOSINOPHILS # (AUTO) 0.2 K/uL (0.0-0.7); EOSINOPHILS % (AUTO) 1.8 % (0.0-7.0); HEMATOCRIT 24.6 % (31.2-41.9); HEMOGLOBIN 7.8 g/dL (10.9-14.3); LYMPHOCYTES # (AUTO) 1.5 K/uL (0.8-4.8); LYMPHOCYTES % (AUTO) 16.8 % (20.5-51.5); MEAN CORPUSCULAR HGB CONC 32 g/dL (32.3-35.6); MONOCYTES # (AUTO) 0.7 K/uL (0.1-1.30); MONOCYTES % (AUTO) 7.3 % (0.0-11.0); NEUTROPHILS # (AUTO) 6.6 K/uL (1.8-8.9); NEUTROPHILS % (AUTO) 72.9 % (38.5-71.5); PLATELET COUNT (AUTO) 479 K/uL (179-408); RED BLOOD CELL COUNT(AUTO) 3.56 MIL/uL (3.63-4.92); RED CELL DISTRIBUTION WIDTH 19.6 % (12.3-17.7); WHITE BLOOD COUNT (AUTO) 9.1 K/uL (3.8-11.8)
[2024-09-12 08:12] LABS: CALCIUM 8.4 mg/dL (8.5-10.1); CARBON DIOXIDE 28 mmol/L (21-32); CHLORIDE 108 mmol/L (98-107); CREATININE 0.8 mg/dL (0.6-1.3); GLUCOSE 151 mg/dL (74-106); MAGNESIUM 1.9 mg/dL (1.8-2.4); PHOSPHOROUS 3.4 mg/dL (2.5-4.9); POTASSIUM 3.7 mmol/L (3.5-5.1); SODIUM SERUM 144 mmol/L (136-145); UREA NITROGEN, BLOOD 15 mg/dL (7-18)
[2024-09-12] MEDS: SERTRALINE HCL 50 MG TABLET PO SCH (08:17)
[2024-09-12] MEDS: DILTIAZEM HCL CD 120 MG CAP.SR.24H PO SCH (08:17)
[2024-09-12] MEDS ORDERED: Medication Not On Formulary EA (Sertraline Hcl (Zoloft) 25 MG) PO SCH (09:00)
[2024-09-12] MEDS ORDERED: Medication Not On Formulary EA (Esomeprazole Mag Trihydrate (Nexium) 40 MG) PO SCH (09:00)
[2024-09-12] MEDS ORDERED: Linaclotide (Linzess) 290 MCG) PO SCH (09:00)
[2024-09-12 10:14] LABS: IRON, SERUM 400 ug/dL (50-175)
[2024-09-12 12:00] VITALS: BP 130/62; TEMP 97.8; O2SAT 95
[2024-09-12] MEDS: EPOETIN ALFA-EPBX 10,000 UNIT/ML VIAL SQ ONE (12:43)
[2024-09-12] MEDS: SOD FERRIC GLUC COMPLX/SUCROSE 125 MG in IV NORMAL SALINE 100 ML IV SCH (14:02)
[2024-09-12 15:53] VITALS: BP 151/79; TEMP 97.6; O2SAT 97
[2024-09-12] MEDS: QUETIAPINE FUMARATE 25 MG TABLET PO SCH (16:20)
[2024-09-12] MEDS: DILTIAZEM HCL 25 MG IV IV PRN (17:55)
[2024-09-12] MEDS: QUETIAPINE FUMARATE 100 MG TABLET PO SCH (20:58)
[2024-09-12 21:02] VITALS: BP 140/86; TEMP 99.2; O2SAT 94
[2024-09-13 01:11] VITALS: BP 133/81; TEMP 98.4; O2SAT 95
[2024-09-13 04:47] VITALS: BP 141/76; TEMP 98.9; O2SAT 95
[2024-09-13 07:00] LABS: BASOPHILS # (AUTO) 0.1 K/UL (0.0-0.2); EOSINOPHILS # (AUTO) 0.2 K/uL (0.0-0.7); EOSINOPHILS % (AUTO) 1.9 % (0.0-7.0); HEMATOCRIT 27.4 % (31.2-41.9); HEMOGLOBIN 8.4 g/dL (10.9-14.3); LYMPHOCYTES # (AUTO) 1.5 K/uL (0.8-4.8); LYMPHOCYTES % (AUTO) 16.1 % (20.5-51.5); MEAN CORPUSCULAR HEMOGLOBIN 21.2 uug (24.7-32.8); MEAN CORPUSCULAR HGB CONC 31 g/dL (32.3-35.6); MEAN CORPUSCULAR VOLUME 68.9 fL (75.5-95.3); MONOCYTES % (AUTO) 10.5 % (0.0-11.0); NEUTROPHILS # (AUTO) 6.4 K/uL (1.8-8.9); NEUTROPHILS % (AUTO) 70.5 % (38.5-71.5); PLATELET COUNT (AUTO) 504 K/uL (179-408); RED BLOOD CELL COUNT(AUTO) 3.98 MIL/uL (3.63-4.92); RED CELL DISTRIBUTION WIDTH 19.8 % (12.3-17.7)
[2024-09-13 07:09] LABS: CALCIUM 8.7 mg/dL (8.5-10.1); CARBON DIOXIDE 28 mmol/L (21-32); CHLORIDE 106 mmol/L (98-107); CREATININE 0.8 mg/dL (0.6-1.3); DIFFERENTIAL COMMENT 1; GLUCOSE 158 mg/dL (74-106); POTASSIUM 3.6 mmol/L (3.5-5.1); SODIUM SERUM 143 mmol/L (136-145); UREA NITROGEN, BLOOD 12 mg/dL (7-18)
[2024-09-13 07:51] VITALS: BP 145/90; TEMP 98.5; O2SAT 95
[2024-09-13] MEDS: DILTIAZEM HCL CD 120 MG CAP.SR.24H PO SCH (09:15)
[2024-09-13 11:32] VITALS: BP 135/99; TEMP 97.9; O2SAT 95
[2024-09-13 15:26] VITALS: BP 140/89; TEMP 98.1; O2SAT 94
[2024-09-13] MEDS: DILTIAZEM HCL 25 MG IV IV PRN (18:16)
[2024-09-13 19:47] VITALS: BP 167/68; TEMP 98.8; O2SAT 98
[2024-09-14 00:19] VITALS: BP 157/78; TEMP 99.5; O2SAT 91
[2024-09-14 04:20] VITALS: BP 122/83; TEMP 98.4; O2SAT 91
[2024-09-14 06:43] LABS: BASOPHILS # (AUTO) 0.1 K/UL (0.0-0.2); BASOPHILS % (AUTO) 1.2 % (0.0-2.0); EOSINOPHILS # (AUTO) 0.3 K/uL (0.0-0.7); EOSINOPHILS % (AUTO) 3.8 % (0.0-7.0); HEMATOCRIT 27.4 % (31.2-41.9); HEMOGLOBIN 8.7 g/dL (10.9-14.3); LYMPHOCYTES # (AUTO) 1.2 K/uL (0.8-4.8); LYMPHOCYTES % (AUTO) 16.1 % (20.5-51.5); MEAN CORPUSCULAR HEMOGLOBIN 22.1 uug (24.7-32.8); MEAN CORPUSCULAR HGB CONC 32 g/dL (32.3-35.6); MEAN CORPUSCULAR VOLUME 69.9 fL (75.5-95.3); MONOCYTES # (AUTO) 0.8 K/uL (0.1-1.30); MONOCYTES % (AUTO) 10.8 % (0.0-11.0); NEUTROPHILS # (AUTO) 5.2 K/uL (1.8-8.9); NEUTROPHILS % (AUTO) 68.1 % (38.5-71.5); PLATELET COUNT (AUTO) 493 K/uL (179-408); RED BLOOD CELL COUNT(AUTO) 3.92 MIL/uL (3.63-4.92); RED CELL DISTRIBUTION WIDTH 20.4 % (12.3-17.7); WHITE BLOOD COUNT (AUTO) 7.7 K/uL (3.8-11.8)
[2024-09-14 06:56] LABS: DIFFERENTIAL COMMENT 1
[2024-09-14 06:58] LABS: CALCIUM 8.9 mg/dL (8.5-10.1); CARBON DIOXIDE 27 mmol/L (21-32); CHLORIDE 107 mmol/L (98-107); CREATININE 0.9 mg/dL (0.6-1.3); GLUCOSE 157 mg/dL (74-106); POTASSIUM 3.3 mmol/L (3.5-5.1); SODIUM SERUM 144 mmol/L (136-145); UREA NITROGEN, BLOOD 17 mg/dL (7-18)
[2024-09-14 07:39] VITALS: BP 130/82; TEMP 98; O2SAT 96
[2024-09-14] MEDS: LINZESS 290 MCG PO SCH (09:30)
[2024-09-14] MEDS ORDERED: QUET25TA36 PO (10:17)
[2024-09-14] MEDS ORDERED: DILT120C87 PO (10:17)
[2024-09-14] MEDS ORDERED: QUET100T32 PO (10:17)
[2024-09-14 10:58] VITALS: BP 123/69; TEMP 97.9; O2SAT 94
[2024-09-14] MEDS: POTASSIUM CHLORIDE 20 MEQ TAB.PRT.SR PO ONE (12:04)
== END 2024-09-14 15:30 | disposition hospice, home (50) | DRG 811 ==
LOC: ER 10:55 → MEDSURG3 12:29 → TRANSITION 12:30 → TELE3 13:51 → MEDSURG3 14:10 → TELE3 09-12 16:15
PROVIDERS: ADMIT Internal Medicine; ATTEND Internal Medicine
PROC: 30233N1 Transfusion of Nonautologous Red Blood Cells into Peripheral Vein, Percutaneous Approach (ICD-10-PCS; principal; 2024-09-11)
PROC: 05HC33Z Insertion of Infusion Device into Left Basilic Vein, Percutaneous Approach (ICD-10-PCS; 2024-09-11)
DX: D50.9 Iron deficiency anemia, unspecified (principal); G93.41 Metabolic encephalopathy; N39.0 Urinary tract infection, site not specified; F03.92 Unspecified dementia, unspecified severity, with psychotic disturbance; H54.8 Legal blindness, as defined in USA; B96.89 Other specified bacterial agents as the cause of diseases classified elsewhere; J44.9 Chronic obstructive pulmonary disease, unspecified; I48.0 Paroxysmal atrial fibrillation; Z79.01 Long term (current) use of anticoagulants; Z79.899 Other long term (current) drug therapy; Z87.440 Personal history of urinary (tract) infections; E03.9 Hypothyroidism, unspecified; Z79.890 Hormone replacement therapy; E78.5 Hyperlipidemia, unspecified; E11.9 Type 2 diabetes mellitus without complications; Z78.1 Physical restraint status
CPT/HCPCS: 36415; 80164; 83550; 83735; 84100; 84443; 85025; 85730; 86850; 86900; 86901; 86920; 93005; A4663; G0378; J0696; J0885; J2060; J2358; J2916; J3490; J7040; P9016